=== PATIENT | male | born 1935 | race African-American/Black ===

== ENCOUNTER 2016-07-04 16:27 | Emergency (ER) | payer MEDICARE ==
[~2016-07-04] VITALS: Ht 177.8 cm; Wt 79.8 kg
[~2016-07-04 16:27] MED LIST: AMLO5TAB2 PO; FLAX100031 PO; METO100T5 PO; MULT-460 PO; TRAM50TA PO; VITAMIN B 12
--- NOTE | 2016-07-04 16:54 | PHYS DOC ---
Past Medical History Past Medical History: Hypertension, Other Additional Past Medical Histor: BPH Past Surgical History: Other Additional Past Surgical Histo: hernia , carpal tunnel release Alcohol Use: None Drug Use: None Adult General Chief Complaint Chief Complaint: ABDOMINAL PAIN HPI HPI Patient is a 80 year old male who presents with for evaluation of months of right-sided and epigastric abdominal pain that is constant. He also notes in the past 2 days having some belching and burning after eating associated with mild nausea. He states he has some nonbloody loose stools in the past 2 days also. He has seen his primary care doctor for his abdominal pain, and is taking dicyclomine. He denies fever or chills, emesis, bloody or dark stools, chest pain, dyspnea, pain after eating, dysuria, hematuria, back pain, rash, testicular pain, constipation. Review of Systems Review of Systems Constitutional: Denies fever or chills [] Eyes: Denies change in visual acuity, redness, or eye pain [] HENT: Denies nasal congestion or sore throat [] Respiratory: Denies cough or shortness of breath [] Cardiovascular: No additional information not addressed in HPI [] GI: Denies vomiting, bloody stools or diarrhea [] : Denies dysuria or hematuria [] Musculoskeletal: Denies back pain or joint pain [] Integument: Denies rash or skin lesions [] Neurologic: Denies headache, focal weakness or sensory changes [] Endocrine: Denies polyuria or polydipsia [] Current Medications Current Medications Current Medications Medications (Trade) Dose Ordered Sig/[place] Start Time Stop Time Status Last Admin Dose Admin Famotidine (Pepcid) 20 mg 1X ONCE 07/04/16 17:00 07/04/16 17:01 DC 07/04/16 17:06 20 MG Multi-Ingredient Mouthwash/Gargle (Gi Cocktail Single Dose) 15 ml 1X ONCE 07/04/16 17:00 07/04/16 17:01 DC 07/04/16 17:06 15 ML Allergies Allergies Allergies Coded Allergies Type Severity Reaction Last Updated Verified Fish Containing Products Allergy Intermediate Rash 03/07/13 Yes [place]-3 acid Ethyl Esters Allergy Intermediate Rash 03/07/13 Yes Physical Exam Physical Exam Constitutional: Well developed, well nourished, no acute distress, non-toxic appearance. [] HENT: Normocephalic, atraumatic, bilateral external ears normal, oropharynx moist, nose normal. [] Eyes: PERRLA, EOMI. [] Neck: Normal range of motion, supple. [] Cardiovascular:Heart rate regular rhythm [] Lungs & Thorax: Bilateral breath sounds clear to auscultation [] Abdomen: Bowel sounds normal, soft, no tenderness, no pulsatile mass. [] Skin: Warm, dry, no erythema, no rash. [] Back: No tenderness, no CVA tenderness. [] Extremities: No tenderness, ROM intact, no edema. [] Neurologic: Alert and oriented X 3, normal motor function, normal sensory function, no focal deficits noted. [] Psychologic: Affect normal, judgement normal, mood normal. [] Current Patient Data Vital Signs Vital Signs Date Time Temp Pulse Resp B/P (MAP) Pulse Ox O2 Delivery O2 Flow Rate FiO2 07/04/16 16:37 97.9 82 18 166/85 (112) 98 Room Air 97.9 Lab Values Laboratory Tests Test 07/04/16 16:57 White Blood Count 6.1 x10^3/uL (4.0-11.0) Red Blood Count 3.74 x10^6/uL (4.30-5.70) L Hemoglobin 11.4 g/dL (13.0-17.5) L Hematocrit 35.1 % (39.0-53.0) L Mean Corpuscular Volume 94 fL (79-100) Mean Corpuscular Hemoglobin 31 pg (25-35) Mean Corpuscular Hemoglobin Concent 32 g/dL (31-37) Red Cell Distribution Width 14.5 % (11.5-14.5) Platelet Count 203 x10^3/uL (140-400) Neutrophils (%) (Auto) 80 % (31-73) H Lymphocytes (%) (Auto) 9 % (24-48) L Monocytes (%) (Auto) 8 % (0-9) Eosinophils (%) (Auto) 2 % (0-3) Basophils (%) (Auto) 1 % (0-3) Neutrophils # (Auto) 4.9 x10^3uL (1.8-7.7) Lymphocytes # (Auto) 0.6 x10^3/uL (1.0-4.8) L Monocytes # (Auto) 0.5 x10^3/uL (0.0-1.1) Eosinophils # (Auto) 0.1 x10^3/uL (0.0-0.7) Basophils # (Auto) 0.0 x10^3/uL (0.0-0.2) Sodium Level 137 mmol/L (136-145) Potassium Level 4.3 mmol/L (3.5-5.1) Chloride Level 103 mmol/L (98-107) Carbon Dioxide Level 24 mmol/L (21-32) Anion Gap 10 (6-14) Blood Urea Nitrogen 21 mg/dL (8-26) Creatinine 2.0 mg/dL (0.7-1.3) H Estimated GFR (Cockcroft-Gault) 38.9 BUN/Creatinine Ratio 11 (6-20) Glucose Level 99 mg/dL (70-99) Calcium Level 9.1 mg/dL (8.5-10.1) Total Bilirubin 0.3 mg/dL (0.2-1.0) Aspartate Amino Transferase (AST) 27 U/L (15-37) Alanine Aminotransferase (ALT) 35 U/L (16-63) Alkaline Phosphatase 85 U/L (46-116) Total Protein 7.9 g/dL (6.4-8.2) Albumin 3.4 g/dL (3.4-5.0) Albumin/Globulin Ratio 0.8 (1.0-1.7) L Lipase 106 U/L (73-393) Laboratory Tests 07/04/16 16:57 Laboratory Tests 07/04/16 16:57 Course & Med Decision Making Course & Med Decision Making Pertinent Labs and Imaging studies reviewed. (See chart for details) Workup is unremarkable. His symptoms are improving with medications. Suspect gastritis versus ulcerative disease. Will treat with antacid medication. Return precautions given. He understands plan. Dragon Disclaimer Dragon Disclaimer This electronic medical record was generated, in whole or in part, using a voice recognition dictation system. Departure Departure Impression: Primary Impression: Abdominal pain Disposition: HOME, SELF-CARE Condition: STABLE Patient Instructions: Gastroesophageal Reflux Disease, Adult, [id number] Additional Instructions: Take famotidine for possible acid reflux. Follow-up with your primary care doctor within one week. Return for any concerns. Scripts Famotidine (FAMOTIDINE) 20 Mg Tablet 20 MG PO BID, #30 TAB Prov: Hugh VALLADARES MD 07/04/16 Problem Qualifiers Primary Impression: Abdominal pain Abdominal location: unspecified location Qualified Codes: R10.9 - Unspecified abdominal pain Hugh VALLADARES MD July 04, 2016 16:54
[2016-07-04] MEDS ORDERED: FAMOTIDINE 20 MG TABLET. PO ONE (17:00)
[2016-07-04] MEDS ORDERED: LIDO:MAALOX:DONNATAL 1:1:1 15 ML SINGLE DOSE SWSW ONE (17:00)
[2016-07-04 17:05] LABS: BASO % 1 % (0-3); EOS % 2 % (0-3); HEMATOCRIT 35.1 % (39.0-53.0); HEMOGLOBIN 11.4 g/dL (13.0-17.5); LYMPH # 0.6 x10^3/uL (1.0-4.8); LYMPH % 9 % (24-48); MEAN CORPUSCULAR HEMOGLOBIN 31 pg (25-35); MEAN CORPUSCULAR HGB CONC 32 g/dL (31-37); MEAN CORPUSCULAR VOLUME 94 fL (79-100); MONO % 8 % (0-9); NEUT % 80 % (31-73); PLATELET COUNT 203 x10^3/uL (140-400); RED BLOOD COUNT 3.74 x10^6/uL (4.30-5.70); RED CELL DISTRIBUTION WIDTH 14.5 % (11.5-14.5); WHITE BLOOD COUNT 6.1 x10^3/uL (4.0-11.0)
[2016-07-04 17:28] LABS: CALCIUM 9.1 mg/dL (8.5-10.1); GFR 38.9; POTASSIUM 4.3 mmol/L (3.5-5.1)
[2016-07-04 17:34] LABS: ALBUMIN 3.4 g/dL (3.4-5.0); ALBUMIN/GLOBULIN RATIO 0.8 (1.0-1.7); TOTAL BILIRUBIN 0.3 mg/dL (0.2-1.0); TOTAL PROTEIN 7.9 g/dL (6.4-8.2)
[2016-07-04] MEDS ORDERED: FAMO20TA5 PO (17:57)
[2016-07-04 18:04] VITALS: BP 141/72
== END 2016-07-04 18:23 | disposition home or self-care (01) ==
LOC: ER 17:40
DX: R10.9 Unspecified abdominal pain (principal); I10 Essential (primary) hypertension; Z91.013 Allergy to seafood
CPT/HCPCS: 36415; 80053; 83690; 85027; 99284

== ENCOUNTER 2016-07-23 16:40 | Inpatient (IN) | payer MEDICARE ==
[~2016-07-23] VITALS: Ht 177.8 cm; Wt 81.6 kg
[~2016-07-23 16:40] MED LIST changes: +FAMO20TA5 PO
--- NOTE | 2016-07-23 16:46 | PHYS DOC ---
Past Medical History Past Medical History: Hypertension, Other Additional Past Medical Histor: BPH Past Surgical History: Other Additional Past Surgical Histo: hernia , carpal tunnel release Alcohol Use: None Drug Use: None Adult General Chief Complaint Chief Complaint: ABDOMINAL PAIN HPI HPI Patient is a 80 year old [place] male who presents with pain and nausea for 2 weeks. He states he's lost weight over the last several weeks. He states his pain is constant, he states he's having small bowel movements. He does have a history of a right inguinal hernia that was repaired many years ago. He denies any fevers or chills. Review of Systems Review of Systems Constitutional: Denies fever or chills [] Eyes: Denies change in visual acuity, redness, or eye pain [] HENT: Denies nasal congestion or sore throat [] Respiratory: Denies cough or shortness of breath [] Cardiovascular: No additional information not addressed in HPI [] GI: Nausea for abdominal pain, nausea, denies any vomiting, bloody stools or diarrhea [] : Denies dysuria or hematuria [] Musculoskeletal: Denies back pain or joint pain [] Integument: Denies rash or skin lesions [] Neurologic: Denies headache, focal weakness or sensory changes [] Endocrine: Denies polyuria or polydipsia [] Current Medications Current Medications Current Medications Medications (Trade) Dose Ordered Sig/[place] Start Time Stop Time Status Last Admin Dose Admin Fentanyl Citrate (Fentanyl 2ml Vial) 25 mcg PRN Q15MIN PRN 07/23/16 16:45 07/24/16 16:44 07/23/16 17:33 25 MCG Allergies Allergies Allergies Coded Allergies Type Severity Reaction Last Updated Verified Fish Containing Products Allergy Intermediate Rash 03/07/13 Yes [place]-3 acid Ethyl Esters Allergy Intermediate Rash 03/07/13 Yes Physical Exam Physical Exam Constitutional: Well developed, well nourished, no acute distress, non-toxic appearance. [] HENT: Normocephalic, atraumatic, bilateral external ears normal, oropharynx moist, no oral exudates, nose normal. [] Eyes: PERRLA, EOMI, conjunctiva normal, no discharge. [] Neck: Normal range of motion, no tenderness, supple, no stridor. [] Cardiovascular:Heart rate regular rhythm, no murmur [] Lungs & Thorax: Bilateral breath sounds clear to auscultation [] Abdomen: Bowel sounds normal, soft, palpation in the right upper quadrant and mild tenderness diffusely, no rebound, no masses, no pulsatile masses. [] Skin: Warm, dry, no erythema, no rash. [] Back: No tenderness, no CVA tenderness. [] Extremities: No tenderness, no cyanosis, no clubbing, ROM intact, no edema. [] Neurologic: Alert and oriented X 3, normal motor function, normal sensory function, no focal deficits noted. [] Psychologic: Affect normal, judgement normal, mood normal. [] Current Patient Data Vital Signs Vital Signs Date Time Temp Pulse Resp B/P (MAP) Pulse Ox O2 Delivery O2 Flow Rate FiO2 07/23/16 17:33 16 Lab Values Laboratory Tests Test 07/23/16 16:55 07/23/16 17:30 Urine Color Yellow Urine Clarity Clear Urine pH 5.5 Urine Specific [place] 1.015 Urine Protein Negative mg/dL (NEG-TRACE) Urine Glucose (UA) Negative mg/dL (NEG) Urine Ketones (Stick) Trace mg/dL (NEG) Urine Blood Negative (NEG) Urine Nitrite Negative (NEG) Urine Bilirubin Small (NEG) Urine Urobilinogen Dipstick 0.2 mg/dL (0.2 mg/dL) Urine Leukocyte Esterase Large (NEG) Urine RBC 0 /HPF (0-2) Urine WBC 5-10 /HPF (0-4) Urine Squamous Epithelial Cells Occ /LPF Urine Bacteria Few /HPF (0-FEW) Urine Mucus Mod /LPF White Blood Count 6.0 x10^3/uL (4.0-11.0) Red Blood Count 3.75 x10^6/uL (4.30-5.70) L Hemoglobin 11.1 g/dL (13.0-17.5) L Hematocrit 34.9 % (39.0-53.0) L Mean Corpuscular Volume 93 fL (79-100) Mean Corpuscular Hemoglobin 30 pg (25-35) Mean Corpuscular Hemoglobin Concent 32 g/dL (31-37) Red Cell Distribution Width 14.0 % (11.5-14.5) Platelet Count 193 x10^3/uL (140-400) Neutrophils (%) (Auto) 80 % (31-73) H Lymphocytes (%) (Auto) 9 % (24-48) L Monocytes (%) (Auto) 8 % (0-9) Eosinophils (%) (Auto) 1 % (0-3) Basophils (%) (Auto) 1 % (0-3) Neutrophils # (Auto) 4.8 x10^3uL (1.8-7.7) Lymphocytes # (Auto) 0.6 x10^3/uL (1.0-4.8) L Monocytes # (Auto) 0.5 x10^3/uL (0.0-1.1) Eosinophils # (Auto) 0.1 x10^3/uL (0.0-0.7) Basophils # (Auto) 0.1 x10^3/uL (0.0-0.2) Prothrombin Time 14.4 SEC (11.7-14.0) H Prothrombin Time INR 1.2 (0.8-1.1) H PTT 31 SEC (24-38) Sodium Level 136 mmol/L (136-145) Potassium Level 4.8 mmol/L (3.5-5.1) Chloride Level 103 mmol/L (98-107) Carbon Dioxide Level 25 mmol/L (21-32) Anion Gap 8 (6-14) Blood Urea Nitrogen 21 mg/dL (8-26) Creatinine 2.3 mg/dL (0.7-1.3) H Estimated GFR (Cockcroft-Gault) 33.1 Glucose Level 90 mg/dL (70-99) Calcium Level 9.4 mg/dL (8.5-10.1) Total Bilirubin 0.6 mg/dL (0.2-1.0) Direct Bilirubin 0.1 mg/dL (0.0-0.2) Aspartate Amino Transferase (AST) 23 U/L (15-37) Alanine Aminotransferase (ALT) 19 U/L (16-63) Alkaline Phosphatase 69 U/L (46-116) Creatine Kinase 130 U/L (39-308) Creatine Kinase MB (Mass) 2.4 ng/mL (0.0-3.6) Creatine Kinase MB Relative Index 1.8 % (0-4) Total Protein 7.6 g/dL (6.4-8.2) Albumin 3.3 g/dL (3.4-5.0) L Lipase 72 U/L (73-393) L Laboratory Tests 07/23/16 17:30 Laboratory Tests 07/23/16 17:30 EKG EKG [] Radiology/Procedures Radiology/Procedures [facility] [address] [place] [address] IMAGING REPORT Signed PATIENT: VICKIE BLEDSOE ACCOUNT: [id number] : 1935 LOCATION: ER AGE: 80 SEX: M EXAM STATUS: REG ER ORD. PHYSICIAN: HILLARY AGUILA MD REASON: RUQ PAIN PROCEDURE: ABDOMEN LTD Right upper quadrant abdomen ultrasound study HISTORY: Right upper quadrant pain FINDINGS: There is gallbladder wall thickening measuring up to 5 mm. The gallbladder is diffusely filled with sludge. A positive Rosado's sign was elicited during transducer examination of the gallbladder. The pancreas is poorly visualized due to overlying bowel gas. No focal hepatic mass is seen. The liver measures 12.3 cm in length. Hepatopedal flow is seen within the main portal vein. The extrahepatic bile that measures 3.6 mm in caliber which is normal. The length of the right kidney is 9.8 cm. No hydronephrosis is seen on this side. An upper pole right renal cyst is seen measuring 3.8 cm. There is a moderate amount of ascites present within the right upper quadrant. IMPRESSION: Diffuse biliary sludge within the gallbladder. Gallbladder wall thickening. Positive Rosado's sign. Therefore this may be seen with cholecystitis. Small liver with moderate ascites. Cirrhosis is a possibility. Electronically signed by: Sharad Fletcher MD (07/23/2016 5:53 PM) DICTATED and SIGNED BY: SHARAD FLETCHER MD DATE: 07/23/16 1749 CC: HILLARY AGUILA MD; HEATHER MEDELLIN MD ~ Course & Med Decision Making Course & Med Decision Making Pertinent Labs and Imaging studies reviewed. (See chart for details) She has diffuse abdominal pain. Right upper quadrant shows gallbladder wall thickening and sludge consistent with cholecystitis. Spoke with Dr. Cotter who once a by mouth contrast only CT scan of abdomen and pelvis to look for any other abnormalities. Patient is being admitted to Dr. Tompkins, with consultation going to . She is in stable condition this time being admitted to the hospital with interim orders written. Dragon Disclaimer Dragon Disclaimer This electronic medical record was generated, in whole or in part, using a voice recognition dictation system. Departure Departure Impression: Primary Impression: Abdominal pain Admitting Physician: Alexis Fisher Condition: STABLE Referrals: UNKNOWN PCP NAME (PCP) Problem Qualifiers Primary Impression: Abdominal pain Abdominal location: generalized Qualified Codes: R10.84 - Generalized abdominal pain HILLARY AGUILA MD Jul 23, 2016 16:46
[2016-07-23 17:12] LABS: BILIRUBIN,URINE SMALL (NEG); GLUCOSE,URINE NEGATIVE (NEG); NITRITE,URINE NEGATIVE (NEG); PH,URINE 5.5; PROTEIN,URINE NEGATIVE (NEG-TRACE); UROBILINOGEN,URINE 0.2 mg/dL (0.2 mg/dL)
[2016-07-23 17:26] LABS: BACTERIA,URINE FEW /HPF (0-FEW); RBC,URINE 0 /HPF (0-2); SQUAMOUS EPITHELIAL CELL,UR OCC /LPF
[2016-07-23] MEDS: fentaNYL PF VIAL 100 MCG/2 ML VIAL IV PRN ×2 (17:33→19:35)
[2016-07-23 17:35] LABS: BASO # 0.1 x10^3/uL (0.0-0.2); BASO % 1 % (0-3); EOS % 1 % (0-3); HEMATOCRIT 34.9 % (39.0-53.0); HEMOGLOBIN 11.1 g/dL (13.0-17.5); LYMPH # 0.6 x10^3/uL (1.0-4.8); LYMPH % 9 % (24-48); MEAN CORPUSCULAR HEMOGLOBIN 30 pg (25-35); MEAN CORPUSCULAR HGB CONC 32 g/dL (31-37); MEAN CORPUSCULAR VOLUME 93 fL (79-100); MONO % 8 % (0-9); NEUT % 80 % (31-73); PLATELET COUNT 193 x10^3/uL (140-400); RED BLOOD COUNT 3.75 x10^6/uL (4.30-5.70)
[2016-07-23 17:45] LABS: INR 1.2 (0.8-1.1); PROTHROMBIN TIME PATIENT 14.4 SEC (11.7-14.0)
--- NOTE | 2016-07-23 17:56 | RAD ---
Right upper quadrant abdomen ultrasound study HISTORY: Right upper quadrant pain FINDINGS: There is gallbladder wall thickening measuring up to 5 mm. The gallbladder is diffusely filled with sludge. A positive Rosado's sign was elicited during transducer examination of the gallbladder. The pancreas is poorly visualized due to overlying bowel gas. No focal hepatic mass is seen. The liver measures 12.3 cm in length. Hepatopedal flow is seen within the main portal vein. The extrahepatic bile that measures 3.6 mm in caliber which is normal. The length of the right kidney is 9.8 cm. No hydronephrosis is seen on this side. An upper pole right renal cyst is seen measuring 3.8 cm. There is a moderate amount of ascites present within the right upper quadrant. IMPRESSION: Diffuse biliary sludge within the gallbladder. Gallbladder wall thickening. Positive Rosado's sign. Therefore this may be seen with cholecystitis. Small liver with moderate ascites. Cirrhosis is a possibility. Electronically signed by: Phillip Fletcher MD (07/23/2016 5:53 PM)
[2016-07-23 17:57] LABS: CALCIUM 9.4 mg/dL (8.5-10.1); CREATININE 2.3 mg/dL (0.7-1.3); GFR 33.1; POTASSIUM 4.8 mmol/L (3.5-5.1)
[2016-07-23 18:02] LABS: ALBUMIN 3.3 g/dL (3.4-5.0); DIRECT BILIRUBIN 0.1 mg/dL (0.0-0.2); TOTAL BILIRUBIN 0.6 mg/dL (0.2-1.0); TOTAL PROTEIN 7.6 g/dL (6.4-8.2)
[2016-07-23 18:11] LABS: CKMB MASS 2.4 ng/mL (0.0-3.6)
[2016-07-23] MEDS ORDERED: fentaNYL PF VIAL 100 MCG/2 ML VIAL IV PRN (18:30)
[2016-07-23] MEDS ORDERED: ONDANSETRON PF 4 MG/2 ML VIAL. IV PRN (18:30)
--- NOTE | 2016-07-23 19:11 | PDOC1 ---
History and Physical Family History Family History: Hypertension Social History Smoke: No ALCOHOL: rare Current Problem List Problem List Problems Medical Problems: (1) Abdominal pain Status: Acute Current Medications Current Medications Current Medications Medications (Trade) Dose Ordered Sig/[place] Start Time Stop Time Status Last Admin Dose Admin Fentanyl Citrate (Fentanyl 2ml Vial) 25 mcg PRN Q2HR PRN 07/23/16 18:30 07/24/16 18:29 Ondansetron HCl (Zofran) 4 mg PRN Q8HRS PRN 07/23/16 18:30 07/24/16 18:29 Allergies Allergies Allergies Coded Allergies Type Severity Reaction Last Updated Verified Fish Containing Products Allergy Intermediate Rash 03/07/13 Yes [place]-3 acid Ethyl Esters Allergy Intermediate Rash 03/07/13 Yes ROS Review of System CONSTITUTIONAL: No fever or chills EYES: No recent changes SKIN: No rash or itching CARDIOVASCULAR: No chest pain, syncope, palpitations, or edema RESPIRATORY: No SOB or cough GASTROINTESTINAL: RUQ, abdominal pain distention and dyspepsia NEUROLOGICAL: No headaches or weakness ENDOCRINE: No cold or heat intolerance GENITOURINARY: No urgency or frequency of urination MUSCULOSKELETAL: No back pain or joint pain LYMPHATICS: No enlarged lymph nodes PSYCHIATRIC: No anxiety or depression Physical Exam Physical Exam GEN.: No apparent distress. Alert and oriented. HEENT: Head is normocephalic, atraumatic NECK: Supple. no JVD LUNGS: Clear to auscultation. HEART: RRR, S1, S2 present. Peripheral pulses intact ABDOMEN: Soft, ruq tender. Positive bowel sounds. distended. EXTREMITIES: Without any cyanosis. NEUROLOGIC: Normal speech, normal tone PSYCHIATRIC: Normal affect, normal mood. SKIN: No ulcerations Vitals Vitals Vital Signs Date Time Temp Pulse Resp B/P (MAP) Pulse Ox O2 Delivery O2 Flow Rate FiO2 07/23/16 18:33 70 18 141/86 (104) 96 Room Air 07/23/16 17:30 98.0 98.0 Labs Labs Laboratory Tests Test 07/23/16 16:55 07/23/16 17:30 Urine Color Yellow Urine Clarity Clear Urine pH 5.5 Urine Specific [place] 1.015 Urine Protein Negative mg/dL (NEG-TRACE) Urine Glucose (UA) Negative mg/dL (NEG) Urine Ketones (Stick) Trace mg/dL (NEG) Urine Blood Negative (NEG) Urine Nitrite Negative (NEG) Urine Bilirubin Small (NEG) Urine Urobilinogen Dipstick 0.2 mg/dL (0.2 mg/dL) Urine Leukocyte Esterase Large (NEG) Urine RBC 0 /HPF (0-2) Urine WBC 5-10 /HPF (0-4) Urine Squamous Epithelial Cells Occ /LPF Urine Bacteria Few /HPF (0-FEW) Urine Mucus Mod /LPF White Blood Count 6.0 x10^3/uL (4.0-11.0) Red Blood Count 3.75 x10^6/uL (4.30-5.70) Hemoglobin 11.1 g/dL (13.0-17.5) Hematocrit 34.9 % (39.0-53.0) Mean Corpuscular Volume 93 fL (79-100) Mean Corpuscular Hemoglobin 30 pg (25-35) Mean Corpuscular Hemoglobin Concent 32 g/dL (31-37) Red Cell Distribution Width 14.0 % (11.5-14.5) Platelet Count 193 x10^3/uL (140-400) Neutrophils (%) (Auto) 80 % (31-73) Lymphocytes (%) (Auto) 9 % (24-48) Monocytes (%) (Auto) 8 % (0-9) Eosinophils (%) (Auto) 1 % (0-3) Basophils (%) (Auto) 1 % (0-3) Neutrophils # (Auto) 4.8 x10^3uL (1.8-7.7) Lymphocytes # (Auto) 0.6 x10^3/uL (1.0-4.8) Monocytes # (Auto) 0.5 x10^3/uL (0.0-1.1) Eosinophils # (Auto) 0.1 x10^3/uL (0.0-0.7) Basophils # (Auto) 0.1 x10^3/uL (0.0-0.2) Prothrombin Time 14.4 SEC (11.7-14.0) Prothromb Time International Ratio 1.2 (0.8-1.1) Activated Partial Thromboplast Time 31 SEC (24-38) Sodium Level 136 mmol/L (136-145) Potassium Level 4.8 mmol/L (3.5-5.1) Chloride Level 103 mmol/L (98-107) Carbon Dioxide Level 25 mmol/L (21-32) Anion Gap 8 (6-14) Blood Urea Nitrogen 21 mg/dL (8-26) Creatinine 2.3 mg/dL (0.7-1.3) Estimated GFR (Cockcroft-Gault) 33.1 Glucose Level 90 mg/dL (70-99) Calcium Level 9.4 mg/dL (8.5-10.1) Total Bilirubin 0.6 mg/dL (0.2-1.0) Direct Bilirubin 0.1 mg/dL (0.0-0.2) Aspartate Amino Transf (AST/SGOT) 23 U/L (15-37) Alanine Aminotransferase (ALT/SGPT) 19 U/L (16-63) Alkaline Phosphatase 69 U/L (46-116) Creatine Kinase 130 U/L (39-308) Creatine Kinase MB (Mass) 2.4 ng/mL (0.0-3.6) Creatine Kinase MB Relative Index 1.8 % (0-4) Total Protein 7.6 g/dL (6.4-8.2) Albumin 3.3 g/dL (3.4-5.0) Lipase 72 U/L (73-393) Laboratory Tests Test 07/23/16 16:55 07/23/16 17:30 Urine Color Yellow Urine Clarity Clear Urine pH 5.5 Urine Specific [place] 1.015 Urine Protein Negative mg/dL (NEG-TRACE) Urine Glucose (UA) Negative mg/dL (NEG) Urine Ketones (Stick) Trace mg/dL (NEG) Urine Blood Negative (NEG) Urine Nitrite Negative (NEG) Urine Bilirubin Small (NEG) Urine Urobilinogen Dipstick 0.2 mg/dL (0.2 mg/dL) Urine Leukocyte Esterase Large (NEG) Urine RBC 0 /HPF (0-2) Urine WBC 5-10 /HPF (0-4) Urine Squamous Epithelial Cells Occ /LPF Urine Bacteria Few /HPF (0-FEW) Urine Mucus Mod /LPF White Blood Count 6.0 x10^3/uL (4.0-11.0) Red Blood Count 3.75 x10^6/uL (4.30-5.70) Hemoglobin 11.1 g/dL (13.0-17.5) Hematocrit 34.9 % (39.0-53.0) Mean Corpuscular Volume 93 fL (79-100) Mean Corpuscular Hemoglobin 30 pg (25-35) Mean Corpuscular Hemoglobin Concent 32 g/dL (31-37) Red Cell Distribution Width 14.0 % (11.5-14.5) Platelet Count 193 x10^3/uL (140-400) Neutrophils (%) (Auto) 80 % (31-73) Lymphocytes (%) (Auto) 9 % (24-48) Monocytes (%) (Auto) 8 % (0-9) Eosinophils (%) (Auto) 1 % (0-3) Basophils (%) (Auto) 1 % (0-3) Neutrophils # (Auto) 4.8 x10^3uL (1.8-7.7) Lymphocytes # (Auto) 0.6 x10^3/uL (1.0-4.8) Monocytes # (Auto) 0.5 x10^3/uL (0.0-1.1) Eosinophils # (Auto) 0.1 x10^3/uL (0.0-0.7) Basophils # (Auto) 0.1 x10^3/uL (0.0-0.2) Prothrombin Time 14.4 SEC (11.7-14.0) Prothromb Time International Ratio 1.2 (0.8-1.1) Activated Partial Thromboplast Time 31 SEC (24-38) Sodium Level 136 mmol/L (136-145) Potassium Level 4.8 mmol/L (3.5-5.1) Chloride Level 103 mmol/L (98-107) Carbon Dioxide Level 25 mmol/L (21-32) Anion Gap 8 (6-14) Blood Urea Nitrogen 21 mg/dL (8-26) Creatinine 2.3 mg/dL (0.7-1.3) Estimated GFR (Cockcroft-Gault) 33.1 Glucose Level 90 mg/dL (70-99) Calcium Level 9.4 mg/dL (8.5-10.1) Total Bilirubin 0.6 mg/dL (0.2-1.0) Direct Bilirubin 0.1 mg/dL (0.0-0.2) Aspartate Amino Transf (AST/SGOT) 23 U/L (15-37) Alanine Aminotransferase (ALT/SGPT) 19 U/L (16-63) Alkaline Phosphatase 69 U/L (46-116) Creatine Kinase 130 U/L (39-308) Creatine Kinase MB (Mass) 2.4 ng/mL (0.0-3.6) Creatine Kinase MB Relative Index 1.8 % (0-4) Total Protein 7.6 g/dL (6.4-8.2) Albumin 3.3 g/dL (3.4-5.0) Lipase 72 U/L (73-393) VTE Prophylaxis Ordered VTE Prophylaxis Devices: Yes VTE Pharmacological Prophylaxi: Yes ANH SHIRLEY MD Jul 23, 2016 19:11
[2016-07-23] MEDS ORDERED: ALBUTEROL SULFATE 2.5 MG/3 ML NEBU. NEB PRN (19:15)
[2016-07-23] MEDS ORDERED: ACETAMINOPHEN 325 MG TABLET. PO PRN (19:15)
--- NOTE | 2016-07-23 19:20 | ACF ---
Admission Forms Criteria ABDOMINAL PAIN Clinical Indications for Admission to Inpatient Care (Place 'X' for any and all applicable criteria): Admission is indicated for ANY ONE of the following(1)(2)(3)(4)(5): [X]I. Inpatient admission required rather than observation care (Also use Abdominal Pain: Observation Care, as appropriate) because of ANY ONE of the following: [ ]a) Severe pain requiring acute inpatient management [X]b) Identification of etiology/finding that requires inpatient care (eg, aortic dissection, free air) [ ]c) Absent bowel sounds with complete ileus(6) [ ]d) Suspected toxic megacolon [ ]e) Severe electrolyte abnormalities requiring inpatient care [ ]f) High fever or infection requiring inpatient admission as indicated by ANY ONE of following(7)(8): [ ] i) Appropriate outpatient or observational care antimicrobial treatment unavailable, not effective, or not feasible [ ] ii) Documented bacteremia [ ] iii) Temperature > 104.9 degrees F (oral) [ ] iv) T >103.1 F (oral) or < 96.8 F(rectal) that does not respond to all emergency treatment measures [ ]g) Signs of intestinal obstruction [B] [ ]h) Hemodynamic instability [ ]i) IV fluid to replace significant ongoing losses (greater than 3 L/m2 per day) (12)(13) [ ]j) Percutaneous or open drainage (eg, abscess, biliary tract ) procedures [ ]k) Parenteral nutrition regimen that must be implemented on inpatient basis [ ]l) Other condition,treatment or monitoring requiring inpatient admission. [ ]II. Peritoneal signs present [ ]III. Surgery needed that cannot be performed on an ambulatory basis. [ ]IV. Evaluation requires patient to not eat or drink for extended period ( eg, more than 24 hours). [ ]V. Contraindications and/or Inappropriate clinical situations for Observational Care in patients with abdominal pain, when ANY ONE of the following is required: [ ]a) Thorough evaluation is required to prevent catastrophic events due to delays in diagnosing (e.g.Mesenteric ischemia) 1,3 [ ]b) Patient with severe pathology or with chronic symptoms unlikely to improve in the ED stay (3) [ ]. General contraindications and/or Inappropriate clinical situations for Observational Care in patients with abdominal pain, when ANY ONE of the following is required: [ ]a) Prediction of prolongation of LOS based on ANY ONE of the following may be considered as a contraindication for observational care 2, 3, 4, 5, 6, 7, 8, 9, 10, 11 [ ]i) Age > 65 yrs. [ ]ii) Patient arriving by ambulance [ ]iii) Patient with high acuity [ ]iv) Patient requiring vital sign monitoring [ ]v) Patient on IV medication [ ]b) Systolic blood pressures 180mmHg 3,12 [ ]c) Patient with altered mental status including delirium and other alteration of consciousness, (3) [ ]d) Patient whose discharge disposition will be to a alf home or rehabilitation home should not be managed in Emergency Department Observation Unit. CMS rule requires 3 days hospital stay before such placement.3,13 [ ]e) Patient with failure to thrive due to broad array of etiologies 3,16,17 [ ]f) Inability to ambulate 3,14 Extended stay beyond goal length of stay may be needed for(2)(3): [ ]a) Persistent abdominal pain with suspected intra-abdominal process [ ]b) Diagnosed condition requiring continued stay (e.g., pancreatitis, complicated diverticulitis) [ ]c) Surgery (e.g., colectomy) The original [facility] content created by [employer] has been revised. The portions of the content which have been revised are identified through the use of italic text or in bold, and [facility] has neither reviewed nor approved the modified material.All other unmodified content is copyright [employer]. Please see references footnoted in the original [employer] edition 2016 Admission Criteria Met?: Yes CONSTANCE MALAVE Jul 23, 2016 19:20
[2016-07-23] MEDS ORDERED: IOHEXOL 240 MG/ML 50ML VIAL. PO ONE (19:45)
[2016-07-23] MEDS ORDERED: CONTRAST GIVEN MC PRN (19:45)
--- NOTE | 2016-07-23 21:00 | RAD ---
CT study of the abdomen and pelvis without contrast Clinical indications: Right-sided abdominal pain. Ascites. Cholecystitis seen on sonogram performed today. TECHNIQUE: Non-IV contrast helical CT scanning of the abdomen and pelvis was performed. Without IV contrast, the sensitivity to detect organ pathology is decreased. GI contrast was administered per mouth. PQRS compliance Statement One or more of the following individualized dose reduction techniques were utilized for this study: 1. Automated exposure control 2. Adjustment of the mA and/or kV according to patient size 3. Use of iterative reconstruction technique COMPARISON: No previous CT available. FINDINGS: The liver is small in size. No focal hepatic mass is seen. The spleen is not enlarged. Diffuse atrophy of the pancreas is seen. Gallbladder is distended. No extrahepatic biliary ductal dilatation is seen. No adrenal mass is seen. No hydronephrosis or hydroureter is seen on either side. There is a cyst of the upper pole of the right kidney. There is a complex cyst of the lower pole of the right kidney with calcification. This measures 5.1 cm. This was not seen on the ultrasound study due to bowel gas Urinary bladder wall is smooth. Prostate gland is significantly enlarged measuring 7.4 cm in transverse dimension and indents the floor of the urinary bladder. A moderate amount of ascites is seen throughout the abdomen and pelvis. No focal aneurysmal dilatation of the abdominal aorta is seen. Calcified atheromatous disease of the celiac artery and SMA and right main renal artery and left main renal artery is seen. No bulky abdominal or pelvic lymphadenopathy is seen. Contrast is seen within the distal esophagus which could be due to esophageal dysmotility or gastroesophageal reflux. There is wall thickening of the distal antrum of the stomach. No obstructive bowel pattern is seen. No free air is seen. Right lung base atelectasis is seen. There is rounded lucency of L4 vertebral body on the left side. There is small radiolucency of the posterior medial aspect of the right iliac bone. IMPRESSION: Moderate ascites. Small liver. The spleen is small in size as well. Gallbladder distention. See ultrasound report. Wall thickening of the distal antrum of the the stomach. Gastritis is possible. Enlarged prostate gland. Small radiolucent areas of the right iliac bone and L4. Osseous metastatic disease is in the differential diagnosis. Contrast is seen within the distal esophagus which may be due to esophageal dysmotility or gastroesophageal reflux. 5.1 cm complex cystic lesion lower pole of the right kidney. Calcification is evident. Cystic neoplasm is possible. Recommend OUTPATIENT CT study of the abdomen with contrast for further evaluation. Electronically signed by: Phillip Fletcher MD (07/23/2016 8:56 PM)
[2016-07-23 21:25] VITALS: BP 154/73
--- NOTE | 2016-07-23 22:14 | HP ---
ADMIT DATE: 07/23/2016 CHIEF COMPLAINT: Abdominal pain. HISTORY OF PRESENT ILLNESS: An 80-year-old -[place] male, who presented to the ER with complaints of abdominal pain. Symptoms were there for nearly 2-3 weeks, gradually getting worse. He presented to the ER in the past, and at that time, he was discharged after symptomatic treatment. The patient has been following with the primary care doctor and the primary care doctor set up an appointment with grinding machine operator, Dr. Alcala, who sent him here to the ER. The patient was seen in the ER. He says that this abdominal pain is terrible, he is not feeling well, and complains of dyspepsia and nausea. He denies any constipation. He is having frequent small bowel movements. He denies any prior surgeries on the abdomen. PAST MEDICAL HISTORY: Hypertension, BPH. PERSONAL HISTORY: No smoking, no alcohol, and no drug abuse. SURGICAL HISTORY: Hernia repair and carpal tunnel disease. FAMILY HISTORY: Hypertension. REVIEW OF SYSTEMS AND PHYSICAL EXAMINATION: Please see my electronic H and P. ALLERGIES: FISH-CONTAINING PRODUCT -OMEGA 3 LABORATORY FINDINGS: CBC: WBC 6000, hemoglobin 11.1, MCV is 93, and platelets 193. Chemistry: Sodium 136, potassium 4.8, chloride is 103, carbon dioxide 25, gap is 8, BUN is 21, creatinine 2.3, and glucose is 90. Total bilirubin 0.6. Lipase is 72. Coagulation panel: INR is 1.2. Urine: Nitrites negative, leukocyte esterase large, and bacteria few. IMAGING STUDIES: Ultrasound of the abdomen showed diffuse biliary sludge within the gallbladder, gallbladder wall thickening, and positive Rosado's sign consistent with cholecystitis. ASSESSMENT AND PLAN: 1. Right upper quadrant abdominal pain, intractable in nature due to cholecystitis. 2. Dyspepsia. 3. Hypertension. PLAN: 1. The patient has been admitted to the hospital for surgical evaluation and possible cholecystectomy in the a.m. 2. He does not appear to be septic at this time. We will keep him n.p.o. and continue IV hydration with normal saline. 3. Consult Dr. Alcala for further recommendations. 4. CBC, BMP in the a.m. 5. CT of the abdomen pending. 6. We will continue home medications and p.r.n. hydralazine for blood pressure. 7. Plan explained to the patient and at bedside, agree with current plan. Pain control with p.r.n. IV morphine. ANH SHIRLEY MD DR: HUANG/elizabeth JOB#: [id number] / [id number] BRAY[place]
[2016-07-23] MEDS: IV NORMAL SALINE 1000ML BAG 1,000 ML IV SCH (22:18)
[2016-07-23 23:18] VITALS: BP 144/74
[2016-07-24] VITALS (12 sets, daily range): BP systolic 90–153; BP diastolic 22–93
[2016-07-24] MEDS: MORPHINE SULFATE 2 MG/ML DISP.SYRIN. IV PRN ×4 (05:16→12:32)
[2016-07-24 05:40] LABS: BASO % 1 % (0-3); EOS % 3 % (0-3); HEMATOCRIT 32.4 % (39.0-53.0); HEMOGLOBIN 10.3 g/dL (13.0-17.5); LYMPH # 0.7 x10^3/uL (1.0-4.8); LYMPH % 13 % (24-48); MEAN CORPUSCULAR HEMOGLOBIN 30 pg (25-35); MEAN CORPUSCULAR HGB CONC 32 g/dL (31-37); MEAN CORPUSCULAR VOLUME 93 fL (79-100); MONO % 11 % (0-9); NEUT % 73 % (31-73); PLATELET COUNT 181 x10^3/uL (140-400); RED BLOOD COUNT 3.49 x10^6/uL (4.30-5.70); WHITE BLOOD COUNT 5.5 x10^3/uL (4.0-11.0)
[2016-07-24 06:03] LABS: ALBUMIN 2.8 g/dL (3.4-5.0); ALBUMIN/GLOBULIN RATIO 0.9 (1.0-1.7); CALCIUM 8.3 mg/dL (8.5-10.1); CREATININE 2.1 mg/dL (0.7-1.3); GFR 36.8; POTASSIUM 4.7 mmol/L (3.5-5.1); TOTAL BILIRUBIN 0.5 mg/dL (0.2-1.0)
[2016-07-24] MEDS ORDERED: BUPIVACAINE-EPI 0.25%-1:200000 MPF 30 ML VIAL. ONE (08:11)
[2016-07-24] MEDS ORDERED: SURGICEL HEMOSTAT 4X8 EACH. ONE (08:11)
[2016-07-24] MEDS ORDERED: IOHEXOL 300 MG/ML 50 ML VIAL. ONE (08:11)
--- NOTE | 2016-07-24 08:15 | PDOC2 ---
JOSE MCCOLLUM HYDROGENATION STILL OPERATOR 07/24/16 0815: CONSULT Date of Consult Date of Consult DATE: 07/24/16 TIME: 08:10 Reason for Consult Reason for Consult: cholecystitis Referring Physician Referring Physician: ER Identification/Chief Complaint Chief Complaint abdominal pain Source Source: Chart review, Patient History of Present Illness Reason for Visit: 3 week history of abdominal pain, upper abdomen, radiates to back. Aggravated by eating, has been eating less. Associated nausea, reflux symptoms. Worsening in last 3-4 days, bloating. Denies nausea or emesis. Does report diarrhea for last week, 3-4 times a day. Past Medical History Cardiovascular: HTN Renal/: Benign prostatic enlarg. Past Surgical History Past Surgical History: Other (RIH repair ) Family History Family History: Hypertension Social History No ALCOHOL: rare Drugs: None Lives: with Family Current Problem List Problem List Problems Medical Problems: (1) Abdominal pain Status: Acute Current Medications Current Medications Current Medications Fentanyl Citrate (Fentanyl 2ml Vial) 25 mcg PRN Q15MIN PRN IV PAIN GREATER THAN 3/10 Last administered on 07/23/16 19:35; Start 07/23/16 at 16:45; Stop 07/24 at 16:44 Ondansetron HCl (Zofran) 4 mg PRN Q8HRS PRN IV NAUSEA/VOMITING; Start 07/23/16 at 18:30; Stop 07/24/16 at 18:29 Fentanyl Citrate (Fentanyl 2ml Vial) 25 mcg PRN Q2HR PRN IV PAIN; Start at 18:30; Stop 07/23/16 at 19:32; Status DC Sodium Chloride 1,000 ml @ 75 mls/hr [id number] IV Last administered on 07/23/16 22:18; Start 07/23/16 at 19:15 Acetaminophen (Tylenol) 325 mg PRN Q6HRS PRN PO MILD PAIN / TEMP; Start at 19:15 Hydralazine HCl (Apresoline) 10 mg PRN Q4HRS PRN IVP ELEVATED BP, SEE COMMENTS ; Start 07/23/16 at 19:15 Ondansetron HCl (Zofran) 4 mg PRN Q8HRS PRN IV NAUSEA/VOMITING; Start 07/23/16 at 19:15 Albuterol Sulfate (Ventolin Neb Soln) 2.5 mg PRN Q4HRS PRN NEB SHORTNESS OF BREATH; Start 07/23/16 at 19:15 Morphine Sulfate 2 mg PRN Q2HR PRN IV PAIN Last administered on 07/24/16 05:16 ; Start 07/23/16 at 19:30 Iohexol (Omnipaque 240 Mg/ml) 50 ml 1X ONCE PO Last administered on 07/23/16 19:56; Start 07/23/16 at 19:45; Stop 07/23/16 at 19:46; Status DC Info (Do NOT chart on this entry -- for MONITORING) 1 each PRN DAILY PRN MC SEE COMMENTS; Start 07/23/16 at 19:45; Stop 07/25/16 at 19:44 Active Scripts Active Famotidine 20 Mg Tablet 20 Mg PO BID Reported Amlodipine Besylate 5 Mg Tablet 5 Mg PO DAILY Multiple Vitamin (Multivitamin With Minerals) 1 Each Tablet 1 Each PO DAILY [Vitamin B 12] DAILY Flaxseed (Flaxseed Oil) 1,000 Mg Capsule 1,000 Mg PO DAILY Toprol Xl (Metoprolol Succinate) 100 Mg Tab.er.24h 100 Mg PO BID Allergies Allergies: Coded Allergies: Fish Containing Products (Verified Allergy, Intermediate, Rash, 03/07/13) RASH ON LEGS Pella-3 acid Ethyl Esters (Verified Allergy, Intermediate, Rash, 03/07/13) RASH ON LEGS ROS General: No: Chills, Other (fevers) PSYCHOLOGICAL ROS: No: Anxiety, Depression Eyes: No Blurry vision, No Double vision HEENT: No: Heacaches, Sore Throat Hematological and Lymphatic: No: Bleeding Problems, Blood Clots Respiratory: YES: Shortness of breath (due to abdominal pain), No: Cough Cardiovascular: No Chest Pain, No Palpitations Gastrointestinal: Yes Other (see hpi) Genitourinary: No Dysuria, No Hematuria Musculoskeletal: No Joint Pain, No Muscle Pain Neurological: No Impaired Coord/balance, No Numbness/Tingling Skin: No Pruritus, No Rash Physical Exam General: Alert, Oriented X3, Cooperative, No acute distress HEENT: PERRLA, Mucous membr. moist/pink Lungs: Clear to auscultation, Normal air movement Heart: Regular rate, Normal S1, Normal S2, No murmurs Abdomen: Soft, Other (ND, tender across upper abdomen, RIH scar present ) Extremities: No clubbing, No cyanosis Skin: No breakdown, No significant lesion Neuro: Normal gait, Normal speech Psych/Mental Status: Mental status NL, Mood NL MUSCULOSKELETAL: No deformity, No swelling Vitals VITALS Vital Signs Date Time Temp Pulse Resp B/P (MAP) Pulse Ox O2 Delivery O2 Flow Rate FiO2 07/24/16 05:45 17 Room Air 07/24/16 03:45 98.3 77 137/93 (108) 97 98.3 Labs Labs Laboratory Tests Test 07/23/16 16:55 07/23/16 17:30 07/24/16 04:55 Urine Color Yellow Urine Clarity Clear Urine pH 5.5 Urine Specific Kendrick 1.015 Urine Protein Negative mg/dL (NEG-TRACE) Urine Glucose (UA) Negative mg/dL (NEG) Urine Ketones (Stick) Trace mg/dL (NEG) Urine Blood Negative (NEG) Urine Nitrite Negative (NEG) Urine Bilirubin Small (NEG) Urine Urobilinogen Dipstick 0.2 mg/dL (0.2 mg/dL) Urine Leukocyte Esterase Large (NEG) Urine RBC 0 /HPF (0-2) Urine WBC 5-10 /HPF (0-4) Urine Squamous Epithelial Cells Occ /LPF Urine Bacteria Few /HPF (0-FEW) Urine Mucus Mod /LPF White Blood Count 6.0 x10^3/uL (4.0-11.0) 5.5 x10^3/uL (4.0-11.0) Red Blood Count 3.75 x10^6/uL (4.30-5.70) 3.49 x10^6/uL (4.30-5.70) Hemoglobin 11.1 g/dL (13.0-17.5) 10.3 g/dL (13.0-17.5) Hematocrit 34.9 % (39.0-53.0) 32.4 % (39.0-53.0) Mean Corpuscular Volume 93 fL (79-100) 93 fL (79-100) Mean Corpuscular Hemoglobin 30 pg (25-35) 30 pg (25-35) Mean Corpuscular Hemoglobin Concent 32 g/dL (31-37) 32 g/dL (31-37) Red Cell Distribution Width 14.0 % (11.5-14.5) 14.0 % (11.5-14.5) Platelet Count 193 x10^3/uL (140-400) 181 x10^3/uL (140-400) Neutrophils (%) (Auto) 80 % (31-73) 73 % (31-73) Lymphocytes (%) (Auto) 9 % (24-48) 13 % (24-48) Monocytes (%) (Auto) 8 % (0-9) 11 % (0-9) Eosinophils (%) (Auto) 1 % (0-3) 3 % (0-3) Basophils (%) (Auto) 1 % (0-3) 1 % (0-3) Neutrophils # (Auto) 4.8 x10^3uL (1.8-7.7) 4.0 x10^3uL (1.8-7.7) Lymphocytes # (Auto) 0.6 x10^3/uL (1.0-4.8) 0.7 x10^3/uL (1.0-4.8) Monocytes # (Auto) 0.5 x10^3/uL (0.0-1.1) 0.6 x10^3/uL (0.0-1.1) Eosinophils # (Auto) 0.1 x10^3/uL (0.0-0.7) 0.1 x10^3/uL (0.0-0.7) Basophils # (Auto) 0.1 x10^3/uL (0.0-0.2) 0.0 x10^3/uL (0.0-0.2) Prothrombin Time 14.4 SEC (11.7-14.0) Prothromb Time International Ratio 1.2 (0.8-1.1) Activated Partial Thromboplast Time 31 SEC (24-38) Sodium Level 136 mmol/L (136-145) 137 mmol/L (136-145) Potassium Level 4.8 mmol/L (3.5-5.1) 4.7 mmol/L (3.5-5.1) Chloride Level 103 mmol/L (98-107) 105 mmol/L (98-107) Carbon Dioxide Level 25 mmol/L (21-32) 24 mmol/L (21-32) Anion Gap 8 (6-14) 8 (6-14) Blood Urea Nitrogen 21 mg/dL (8-26) 20 mg/dL (8-26) Creatinine 2.3 mg/dL (0.7-1.3) 2.1 mg/dL (0.7-1.3) Estimated GFR (Cockcroft-Gault) 33.1 36.8 Glucose Level 90 mg/dL (70-99) 105 mg/dL (70-99) Calcium Level 9.4 mg/dL (8.5-10.1) 8.3 mg/dL (8.5-10.1) Total Bilirubin 0.6 mg/dL (0.2-1.0) 0.5 mg/dL (0.2-1.0) Direct Bilirubin 0.1 mg/dL (0.0-0.2) Aspartate Amino Transf (AST/SGOT) 23 U/L (15-37) 19 U/L (15-37) Alanine Aminotransferase (ALT/SGPT) 19 U/L (16-63) 15 U/L (16-63) Alkaline Phosphatase 69 U/L (46-116) 60 U/L (46-116) Creatine Kinase 130 U/L (39-308) Creatine Kinase MB (Mass) 2.4 ng/mL (0.0-3.6) Creatine Kinase MB Relative Index 1.8 % (0-4) Total Protein 7.6 g/dL (6.4-8.2) 6.0 g/dL (6.4-8.2) Albumin 3.3 g/dL (3.4-5.0) 2.8 g/dL (3.4-5.0) Lipase 72 U/L (73-393) BUN/Creatinine Ratio 10 (6-20) Albumin/Globulin Ratio 0.9 (1.0-1.7) Laboratory Tests Test 07/23/16 16:55 07/23/16 17:30 07/24/16 04:55 Urine Color Yellow Urine Clarity Clear Urine pH 5.5 Urine Specific Kendrick 1.015 Urine Protein Negative mg/dL (NEG-TRACE) Urine Glucose (UA) Negative mg/dL (NEG) Urine Ketones (Stick) Trace mg/dL (NEG) Urine Blood Negative (NEG) Urine Nitrite Negative (NEG) Urine Bilirubin Small (NEG) Urine Urobilinogen Dipstick 0.2 mg/dL (0.2 mg/dL) Urine Leukocyte Esterase Large (NEG) Urine RBC 0 /HPF (0-2) Urine WBC 5-10 /HPF (0-4) Urine Squamous Epithelial Cells Occ /LPF Urine Bacteria Few /HPF (0-FEW) Urine Mucus Mod /LPF White Blood Count 6.0 x10^3/uL (4.0-11.0) 5.5 x10^3/uL (4.0-11.0) Red Blood Count 3.75 x10^6/uL (4.30-5.70) 3.49 x10^6/uL (4.30-5.70) Hemoglobin 11.1 g/dL (13.0-17.5) 10.3 g/dL (13.0-17.5) Hematocrit 34.9 % (39.0-53.0) 32.4 % (39.0-53.0) Mean Corpuscular Volume 93 fL (79-100) 93 fL (79-100) Mean Corpuscular Hemoglobin 30 pg (25-35) 30 pg (25-35) Mean Corpuscular Hemoglobin Concent 32 g/dL (31-37) 32 g/dL (31-37) Red Cell Distribution Width 14.0 % (11.5-14.5) 14.0 % (11.5-14.5) Platelet Count 193 x10^3/uL (140-400) 181 x10^3/uL (140-400) Neutrophils (%) (Auto) 80 % (31-73) 73 % (31-73) Lymphocytes (%) (Auto) 9 % (24-48) 13 % (24-48) Monocytes (%) (Auto) 8 % (0-9) 11 % (0-9) Eosinophils (%) (Auto) 1 % (0-3) 3 % (0-3) Basophils (%) (Auto) 1 % (0-3) 1 % (0-3) Neutrophils # (Auto) 4.8 x10^3uL (1.8-7.7) 4.0 x10^3uL (1.8-7.7) Lymphocytes # (Auto) 0.6 x10^3/uL (1.0-4.8) 0.7 x10^3/uL (1.0-4.8) Monocytes # (Auto) 0.5 x10^3/uL (0.0-1.1) 0.6 x10^3/uL (0.0-1.1) Eosinophils # (Auto) 0.1 x10^3/uL (0.0-0.7) 0.1 x10^3/uL (0.0-0.7) Basophils # (Auto) 0.1 x10^3/uL (0.0-0.2) 0.0 x10^3/uL (0.0-0.2) Prothrombin Time 14.4 SEC (11.7-14.0) Prothromb Time International Ratio 1.2 (0.8-1.1) Activated Partial Thromboplast Time 31 SEC (24-38) Sodium Level 136 mmol/L (136-145) 137 mmol/L (136-145) Potassium Level 4.8 mmol/L (3.5-5.1) 4.7 mmol/L (3.5-5.1) Chloride Level 103 mmol/L (98-107) 105 mmol/L (98-107) Carbon Dioxide Level 25 mmol/L (21-32) 24 mmol/L (21-32) Anion Gap 8 (6-14) 8 (6-14) Blood Urea Nitrogen 21 mg/dL (8-26) 20 mg/dL (8-26) Creatinine 2.3 mg/dL (0.7-1.3) 2.1 mg/dL (0.7-1.3) Estimated GFR (Cockcroft-Gault) 33.1 36.8 Glucose Level 90 mg/dL (70-99) 105 mg/dL (70-99) Calcium Level 9.4 mg/dL (8.5-10.1) 8.3 mg/dL (8.5-10.1) Total Bilirubin 0.6 mg/dL (0.2-1.0) 0.5 mg/dL (0.2-1.0) Direct Bilirubin 0.1 mg/dL (0.0-0.2) Aspartate Amino Transf (AST/SGOT) 23 U/L (15-37) 19 U/L (15-37) Alanine Aminotransferase (ALT/SGPT) 19 U/L (16-63) 15 U/L (16-63) Alkaline Phosphatase 69 U/L (46-116) 60 U/L (46-116) Creatine Kinase 130 U/L (39-308) Creatine Kinase MB (Mass) 2.4 ng/mL (0.0-3.6) Creatine Kinase MB Relative Index 1.8 % (0-4) Total Protein 7.6 g/dL (6.4-8.2) 6.0 g/dL (6.4-8.2) Albumin 3.3 g/dL (3.4-5.0) 2.8 g/dL (3.4-5.0) Lipase 72 U/L (73-393) BUN/Creatinine Ratio 10 (6-20) Albumin/Globulin Ratio 0.9 (1.0-1.7) Assessment/Plan Assessment/Plan cholecystitis ascites ARF, Cr 2.1 diarrhea fluid resuscitation plans for lap reina today will consult GI for evaluation of ongoing diarrhea ANDREAS WATTS MD 07/24/16 0858: CONSULT Allergies Allergies: Coded Allergies: Fish Containing Products (Verified Allergy, Intermediate, Rash, 03/07/13) RASH ON LEGS Pella-3 acid Ethyl Esters (Verified Allergy, Intermediate, Rash, 03/07/13) RASH ON LEGS Assessment/Plan Assessment/Plan patient seen and examined by me. Complains of right sided abdominal pain with diarrhea for several weeks. U/S of the abd showing gallbladder wall thickening and sludge with Rosado's sign. Abd is soft, mildly distended and TTP RUQ. Plan L /S Reina today. Agree with Terrie's assessment and plan. JOSE MCCOLLUM APRN Jul 24, 2016 08:15 ANDREAS WATTS MD Jul 24, 2016 08:58
[2016-07-24] MEDS: IV NORMAL SALINE 1000ML BAG 1,000 ML IV SCH (08:20)
[2016-07-24] MEDS ORDERED: ROCURONIUM 50 MG/5 ML VIAL. ONE (10:35)
[2016-07-24] MEDS ORDERED: FAMOTIDINE 20 MG/2 ML VIAL ONE (10:35)
[2016-07-24] MEDS ORDERED: LIDOCAINE 2% PF Vial for OR 5 ML VIAL. ONE (10:35)
[2016-07-24] MEDS ORDERED: fentaNYL PF VIAL 100 MCG/2 ML VIAL ONE (10:35)
[2016-07-24] MEDS ORDERED: PROPOFOL 20 ML IV ONE (10:35)
[2016-07-24] MEDS ORDERED: ONDANSETRON PF 4 MG/2 ML VIAL. ONE (10:35)
--- NOTE | 2016-07-24 10:40 | PDOC2 ---
GI CONSULT Reason For Consult: Diarrhea HPI: HPI: 80 y/o male w/ upper abd pain recently, worse after eating, unimproved w/ trial of H2 shyam. Scheduled for cholecystectomy later today, labs and imaging as below. Has also had abdominal distention and diarrhea lately. No precipitating events. 3-5 stools daily, some watery, some soft. Occasional reflux, no NSAIDs. Denies n/v, weight loss, hematochezia, melena. Office records: colonoscopy (Dr. Holliday) in 2006: normal mucosa throughout, sigmoid diverticulosis, internal hemorrhoids. Also reports previous EGD and colonoscopy around 2012 @ [place], believes both normal. PMH: PMH: HTN, BPH, right CTR, right inguinal hernia repair FH: Family History: No pertinent hx Social History: Smoke: No ALCOHOL: none Drugs: None ROS: GEN: Denies fevers, chills, sweats HEENT: Denies blurred vision, sore throat CV: Denies chest pain RESP: Denies shortness of air, cough GI: Per HPI : Denies hematuria, dysuria ENDO: Denies weight changes NEURO: Denies confusion, dizziness MSK: Denies weakness, joint pain/swelling SKIN: Denies jaundice, pruritus Vitals: Vitals: Vital Signs Date Time Temp Pulse Resp B/P (MAP) Pulse Ox O2 Delivery O2 Flow Rate FiO2 07/24/16 09:46 98.2 71 20 165/83 97 Room Air 98.2 Labs: Labs: Laboratory Tests Test 07/23/16 16:55 07/23/16 17:30 07/24/16 04:55 Urine Color Yellow Urine Clarity Clear Urine pH 5.5 Urine Specific [place] 1.015 Urine Protein Negative mg/dL (NEG-TRACE) Urine Glucose (UA) Negative mg/dL (NEG) Urine Ketones (Stick) Trace mg/dL (NEG) Urine Blood Negative (NEG) Urine Nitrite Negative (NEG) Urine Bilirubin Small (NEG) Urine Urobilinogen Dipstick 0.2 mg/dL (0.2 mg/dL) Urine Leukocyte Esterase Large (NEG) Urine RBC 0 /HPF (0-2) Urine WBC 5-10 /HPF (0-4) Urine Squamous Epithelial Cells Occ /LPF Urine Bacteria Few /HPF (0-FEW) Urine Mucus Mod /LPF White Blood Count 6.0 x10^3/uL (4.0-11.0) 5.5 x10^3/uL (4.0-11.0) Red Blood Count 3.75 x10^6/uL (4.30-5.70) 3.49 x10^6/uL (4.30-5.70) Hemoglobin 11.1 g/dL (13.0-17.5) 10.3 g/dL (13.0-17.5) Hematocrit 34.9 % (39.0-53.0) 32.4 % (39.0-53.0) Mean Corpuscular Volume 93 fL (79-100) 93 fL (79-100) Mean Corpuscular Hemoglobin 30 pg (25-35) 30 pg (25-35) Mean Corpuscular Hemoglobin Concent 32 g/dL (31-37) 32 g/dL (31-37) Red Cell Distribution Width 14.0 % (11.5-14.5) 14.0 % (11.5-14.5) Platelet Count 193 x10^3/uL (140-400) 181 x10^3/uL (140-400) Neutrophils (%) (Auto) 80 % (31-73) 73 % (31-73) Lymphocytes (%) (Auto) 9 % (24-48) 13 % (24-48) Monocytes (%) (Auto) 8 % (0-9) 11 % (0-9) Eosinophils (%) (Auto) 1 % (0-3) 3 % (0-3) Basophils (%) (Auto) 1 % (0-3) 1 % (0-3) Neutrophils # (Auto) 4.8 x10^3uL (1.8-7.7) 4.0 x10^3uL (1.8-7.7) Lymphocytes # (Auto) 0.6 x10^3/uL (1.0-4.8) 0.7 x10^3/uL (1.0-4.8) Monocytes # (Auto) 0.5 x10^3/uL (0.0-1.1) 0.6 x10^3/uL (0.0-1.1) Eosinophils # (Auto) 0.1 x10^3/uL (0.0-0.7) 0.1 x10^3/uL (0.0-0.7) Basophils # (Auto) 0.1 x10^3/uL (0.0-0.2) 0.0 x10^3/uL (0.0-0.2) Prothrombin Time 14.4 SEC (11.7-14.0) Prothromb Time International Ratio 1.2 (0.8-1.1) Activated Partial Thromboplast Time 31 SEC (24-38) Sodium Level 136 mmol/L (136-145) 137 mmol/L (136-145) Potassium Level 4.8 mmol/L (3.5-5.1) 4.7 mmol/L (3.5-5.1) Chloride Level 103 mmol/L (98-107) 105 mmol/L (98-107) Carbon Dioxide Level 25 mmol/L (21-32) 24 mmol/L (21-32) Anion Gap 8 (6-14) 8 (6-14) Blood Urea Nitrogen 21 mg/dL (8-26) 20 mg/dL (8-26) Creatinine 2.3 mg/dL (0.7-1.3) 2.1 mg/dL (0.7-1.3) Estimated GFR (Cockcroft-Gault) 33.1 36.8 Glucose Level 90 mg/dL (70-99) 105 mg/dL (70-99) Calcium Level 9.4 mg/dL (8.5-10.1) 8.3 mg/dL (8.5-10.1) Total Bilirubin 0.6 mg/dL (0.2-1.0) 0.5 mg/dL (0.2-1.0) Direct Bilirubin 0.1 mg/dL (0.0-0.2) Aspartate Amino Transf (AST/SGOT) 23 U/L (15-37) 19 U/L (15-37) Alanine Aminotransferase (ALT/SGPT) 19 U/L (16-63) 15 U/L (16-63) Alkaline Phosphatase 69 U/L (46-116) 60 U/L (46-116) Creatine Kinase 130 U/L (39-308) Creatine Kinase MB (Mass) 2.4 ng/mL (0.0-3.6) Creatine Kinase MB Relative Index 1.8 % (0-4) Total Protein 7.6 g/dL (6.4-8.2) 6.0 g/dL (6.4-8.2) Albumin 3.3 g/dL (3.4-5.0) 2.8 g/dL (3.4-5.0) Lipase 72 U/L (73-393) BUN/Creatinine Ratio 10 (6-20) Albumin/Globulin Ratio 0.9 (1.0-1.7) Allergies: Coded Allergies: Fish Containing Products (Verified Allergy, Intermediate, Rash, 03/07/13) RASH ON LEGS [place]-3 acid Ethyl Esters (Verified Allergy, Intermediate, Rash, 03/07/13) RASH ON LEGS Medications: Current Medications Medications (Trade) Dose Ordered Sig/[place] Route PRN Reason Start Time Stop Time Status Last Admin Dose Admin Fentanyl Citrate (Fentanyl 2ml Vial) 25 mcg PRN Q15MIN PRN IV PAIN GREATER THAN 3/10 07/23/16 16:45 07/24/16 16:44 07/23/16 19:35 Sodium Chloride 1,000 ml @ 75 mls/hr [id number] IV 07/23/16 19:15 07/24/16 08:20 Morphine Sulfate 2 mg PRN Q2HR PRN IV PAIN 07/23/16 19:30 07/24/16 05:16 Iohexol (Omnipaque 240 Mg/ml) 50 ml 1X ONCE PO 07/23/16 19:45 07/23/16 19:46 DC 07/23/16 19:56 Imaging: Imaging: Abd US 07/23/16 IMPRESSION: Diffuse biliary sludge within the gallbladder. Gallbladder wall thickening. Positive Rosado's sign. Therefore this may be seen with cholecystitis. Small liver with moderate ascites. Cirrhosis is a possibility. CT A/P w/ oral contrast 07/23/16 IMPRESSION: Moderate ascites. Small liver. The spleen is small in size as well. Gallbladder distention. See ultrasound report. Wall thickening of the distal antrum of the the stomach. Gastritis is possible. Enlarged prostate gland. Small radiolucent areas of the right iliac bone and L4. Osseous metastatic disease is in the differential diagnosis. Contrast is seen within the distal esophagus which may be due to esophageal dysmotility or gastroesophageal reflux. 5.1 cm complex cystic lesion lower pole of the right kidney. Calcification is evident. Cystic neoplasm is possible. Recommend OUTPATIENT CT study of the abdomen with contrast for further evaluation. PE: GEN: NAD HEENT: Atraumatic, PERRL LUNGS: CTAB anteriorly HEART: RRR ABD: BS+, upper discomfort, distended EXTREMITY: No edema SKIN: No rashes, no jaundice NEURO/PSYCH: A & O 3 A/P: A/P: Upper abdominal pain Abd distention, diarrhea Abnormal abd imaging -GB sludge and wall thickening -small liver/possible cirrhosis w/ modearte ascites -possible gastritis, also GERD/esophageal dysmotility -right kidney lesion CRC screen -reports normal colonoscopy 2012 Normocytic anemia -- Await operative findings. Will check stool studies re: diarrhea. Will add PPI. ?further workup for small liver, cirrhosis - will review w/ DENISSE Coronado Jul 24, 2016 10:40
[2016-07-24] MEDS: PANTOPRAZOLE 40 MG TABLET.DR. PO SCH (11:00)
[2016-07-24] MEDS ORDERED: NEOSTIGMINE METHYLSULFATE 5 MG/5 ML SYRINGE. ONE (11:30)
[2016-07-24] MEDS ORDERED: GLYCOPYRROLATE 1 MG/5 ML VIAL. ONE (11:30)
[2016-07-24] MEDS ORDERED: DESFLURANE 31 TO 60 MINUTES IH ONE (11:32)
--- NOTE | 2016-07-24 11:39 | PDOC ---
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
[2016-07-24] MEDS ORDERED: oxyCODONE/APAP 5/325 1 TAB TABLET PO PRN (11:45)
[2016-07-24] MEDS ORDERED: IV RINGERS,LACTATED 1000ML 1,000 ML IV SCH (11:56)
[2016-07-24] MEDS ORDERED: HYDROmorphone 2 MG/ML VIAL IV PRN (12:00)
[2016-07-24] MEDS ORDERED: ONDANSETRON PF 4 MG/2 ML VIAL. IV PRN (12:00)
[2016-07-24] MEDS ORDERED: LIDOCAINE 1% 1 ML SYRINGE. ID PRN (12:00)
[2016-07-24] MEDS ORDERED: fentaNYL PF VIAL 100 MCG/2 ML VIAL IV PRN (12:00)
[2016-07-24] MEDS ORDERED: PROCHLORPERAZINE 10 MG/2 ML VIAL. IV PRN (12:00)
[2016-07-24] MEDS: fentaNYL PF VIAL 100 MCG/2 ML VIAL IV PRN ×2 (12:10→12:26)
[2016-07-24] MEDS: hydrALAZINE 20 MG/ML VIAL. IVP PRN (12:22)
--- NOTE | 2016-07-24 13:50 | PDOC ---
PROGRESS NOTES Chief Complaint Chief Complaint Cholecystitis ASSESSMENT AND PLAN: 1. Cholecystitis: s/p surgery with findings of perit carcinomatosis, which was bx.ed. further surgery aborted. 2. Metast CA: unk primary at this time. await bx results. onc consult. suspected bone mets as well per CT. prognosis poor. palliative services not available for next 5 days 3. HTN: restart home meds 4. Pain control: IV/PO narcotics PRN; start bowel regimen concurrently The findings and suspected dx were discussed with pt, and 2 children at length. Impression of metastatic CA relayed, which would be incurable, but possibly treatable. Symptomatic treatments such as paracentesis discussed as well. 30 min spent in discussion. All questions answered History of Present Illness History of Present Illness s/p ex lap; feels ok. no pain Vitals Vitals Vital Signs Date Time Temp Pulse Resp B/P (MAP) Pulse Ox O2 Delivery O2 Flow Rate FiO2 07/24/16 13:02 85 18 150/72 96 Nasal Cannula 2 07/24/16 11:47 97.5 97.5 Physical Exam General: Alert, Oriented X3, Cooperative, No acute distress Heart: Regular rate, No murmurs Lungs: Clear Abdomen: Soft, Other (distended, tender across upper abdomen, RIH scar present ) Extremities: No cyanosis, Other (mild clubbing) Skin: No rashes Labs LABS Laboratory Tests Test 07/23/16 16:55 07/23/16 17:30 07/24/16 04:55 Urine Color Yellow Urine Clarity Clear Urine pH 5.5 Urine Specific [place] 1.015 Urine Protein Negative mg/dL (NEG-TRACE) Urine Glucose (UA) Negative mg/dL (NEG) Urine Ketones (Stick) Trace mg/dL (NEG) Urine Blood Negative (NEG) Urine Nitrite Negative (NEG) Urine Bilirubin Small (NEG) Urine Urobilinogen Dipstick 0.2 mg/dL (0.2 mg/dL) Urine Leukocyte Esterase Large (NEG) Urine RBC 0 /HPF (0-2) Urine WBC 5-10 /HPF (0-4) Urine Squamous Epithelial Cells Occ /LPF Urine Bacteria Few /HPF (0-FEW) Urine Mucus Mod /LPF White Blood Count 6.0 x10^3/uL (4.0-11.0) 5.5 x10^3/uL (4.0-11.0) Red Blood Count 3.75 x10^6/uL (4.30-5.70) 3.49 x10^6/uL (4.30-5.70) Hemoglobin 11.1 g/dL (13.0-17.5) 10.3 g/dL (13.0-17.5) Hematocrit 34.9 % (39.0-53.0) 32.4 % (39.0-53.0) Mean Corpuscular Volume 93 fL (79-100) 93 fL (79-100) Mean Corpuscular Hemoglobin 30 pg (25-35) 30 pg (25-35) Mean Corpuscular Hemoglobin Concent 32 g/dL (31-37) 32 g/dL (31-37) Red Cell Distribution Width 14.0 % (11.5-14.5) 14.0 % (11.5-14.5) Platelet Count 193 x10^3/uL (140-400) 181 x10^3/uL (140-400) Neutrophils (%) (Auto) 80 % (31-73) 73 % (31-73) Lymphocytes (%) (Auto) 9 % (24-48) 13 % (24-48) Monocytes (%) (Auto) 8 % (0-9) 11 % (0-9) Eosinophils (%) (Auto) 1 % (0-3) 3 % (0-3) Basophils (%) (Auto) 1 % (0-3) 1 % (0-3) Neutrophils # (Auto) 4.8 x10^3uL (1.8-7.7) 4.0 x10^3uL (1.8-7.7) Lymphocytes # (Auto) 0.6 x10^3/uL (1.0-4.8) 0.7 x10^3/uL (1.0-4.8) Monocytes # (Auto) 0.5 x10^3/uL (0.0-1.1) 0.6 x10^3/uL (0.0-1.1) Eosinophils # (Auto) 0.1 x10^3/uL (0.0-0.7) 0.1 x10^3/uL (0.0-0.7) Basophils # (Auto) 0.1 x10^3/uL (0.0-0.2) 0.0 x10^3/uL (0.0-0.2) Prothrombin Time 14.4 SEC (11.7-14.0) Prothromb Time International Ratio 1.2 (0.8-1.1) Activated Partial Thromboplast Time 31 SEC (24-38) Sodium Level 136 mmol/L (136-145) 137 mmol/L (136-145) Potassium Level 4.8 mmol/L (3.5-5.1) 4.7 mmol/L (3.5-5.1) Chloride Level 103 mmol/L (98-107) 105 mmol/L (98-107) Carbon Dioxide Level 25 mmol/L (21-32) 24 mmol/L (21-32) Anion Gap 8 (6-14) 8 (6-14) Blood Urea Nitrogen 21 mg/dL (8-26) 20 mg/dL (8-26) Creatinine 2.3 mg/dL (0.7-1.3) 2.1 mg/dL (0.7-1.3) Estimated GFR (Cockcroft-Gault) 33.1 36.8 Glucose Level 90 mg/dL (70-99) 105 mg/dL (70-99) Calcium Level 9.4 mg/dL (8.5-10.1) 8.3 mg/dL (8.5-10.1) Total Bilirubin 0.6 mg/dL (0.2-1.0) 0.5 mg/dL (0.2-1.0) Direct Bilirubin 0.1 mg/dL (0.0-0.2) Aspartate Amino Transf (AST/SGOT) 23 U/L (15-37) 19 U/L (15-37) Alanine Aminotransferase (ALT/SGPT) 19 U/L (16-63) 15 U/L (16-63) Alkaline Phosphatase 69 U/L (46-116) 60 U/L (46-116) Creatine Kinase 130 U/L (39-308) Creatine Kinase MB (Mass) 2.4 ng/mL (0.0-3.6) Creatine Kinase MB Relative Index 1.8 % (0-4) Total Protein 7.6 g/dL (6.4-8.2) 6.0 g/dL (6.4-8.2) Albumin 3.3 g/dL (3.4-5.0) 2.8 g/dL (3.4-5.0) Lipase 72 U/L (73-393) BUN/Creatinine Ratio 10 (6-20) Albumin/Globulin Ratio 0.9 (1.0-1.7) BYRON HARRISON MD Jul 24, 2016 13:50
[2016-07-24] MEDS: amLODIPine BESYLATE 5 MG TABLET PO SCH (14:29)
[2016-07-24] MEDS: METOPROLOL SUCC 24HR ER 100 MG TAB.ER.24H. PO SCH (14:30)
--- NOTE | 2016-07-24 16:38 | PDOC ---
Provider Note Provider Note Med Onc consult: Carcinomatosis of the abdomen and ascites Await path report. Pt and family want to pursue with palliative chemo as outpt. see dictation YU JIMENEZ MD Jul 24, 2016 16:38
--- NOTE | 2016-07-24 16:57 | OP ---
DATE OF SURGERY: 07/24/2016 PREOPERATIVE DIAGNOSIS: Cholecystitis. POSTOPERATIVE DIAGNOSIS: Carcinomatosis of the abdomen. PROCEDURE: Diagnostic laparoscopy with omental biopsies. SURGEON: Toby Watts MD INDICATIONS: The patient is an 80-year-old gentleman who was admitted to the hospital with an ultrasound showing thickened gallbladder wall with sludge and right upper quadrant abdominal pain. Procedure of laparoscopic cholecystectomy was explained to the patient in detail. Risks, benefits were also discussed including bleeding, infection, injury to intra-abdominal contents, possibly sustaining further open operations were explained to the patient in detail. Risks, benefits ____. The patient seemed to understand and gave verbal and written consent to have the procedure performed. DESCRIPTION OF PROCEDURE: The patient was taken to the operating room and supine position, general anesthesia was initiated. Once the patient was asleep and intubated, his abdomen was prepped and draped in usual sterile fashion using ChloraPrep. An area just below the umbilicus was injected with 0.25% Marcaine with epinephrine. Incision was made with an 11 blade scalpel and a Veress needle was placed within the abdomen. Pneumoperitoneum was achieved. Once this was complete, an 11 mm port was placed. There was quite a bit of ascites came up into the port. Some of this was suctioned. Camera was placed within the abdomen, it was noted that the abdomen was full of carcinomatosis and large amount of ascites. A second 5 mm port was placed in the epigastric area and the ascites was suctioned from the abdomen, was total of 3 liters of clear yellow ascitic fluid. Some of which was sent for cytology. In order to obtain a biopsy portion of the omentum was appeared to be the easiest place to take biopsy. A second 5 mm port was placed in the left mid abdomen using a LigaSure ____ a portion of the mesentery was removed and placed in EndoCatch bag and removed from the umbilicus and sent for pathology. At this point, the pneumoperitoneum was reduced. All ports were removed. Fascial defect at the umbilicus was closed with [id number] 0 Vicryl suture and the skin was reapproximated at all port sites with 4-0 subcuticular Monocryl. Mastisol, Steri-Strips and Band-Aids were applied as dressings. The patient was awakened, extubated in the operating room, taken to recovery in stable condition. All sponge, instrument counts were listed as correct. ESTIMATED BLOOD LOSS: 5 mL. TOBY WATTS MD DR: RODGER/elizabeth JOB#: [id number] / [id number] ecc ANH SHIRLEY MD
[2016-07-24 19:00] LABS: % SAT IRON 6 % (15-34); IRON,SERUM 17 ug/dL (65-175)
[2016-07-24 21:09] LABS: HEP A IGM ABDY Negative (Negative)
[2016-07-24] MEDS: FAMOTIDINE 20 MG TABLET. PO SCH (21:51)
[2016-07-24] MEDS ORDERED: TAMS0.4C2 PO (22:54)
[2016-07-24] MEDS ORDERED: VALS160T3 PO (22:56)
[2016-07-24] MEDS ORDERED: DUTA0.5C PO (22:56)
[2016-07-24] MEDS ORDERED: DICY20TA3 PO (22:57)
[2016-07-24] MEDS: DICYCLOMINE HCL 10 MG CAPSULE PO SCH (23:15)
[2016-07-24] MEDS: DUTASTERIDE 0.5 MG CAPSULE PO SCH (23:31)
[2016-07-24] MEDS: TAMSULOSIN 0.4 MG CAP.ER.24H. PO SCH (23:31)
[2016-07-25] MEDS: IV NORMAL SALINE 1000ML BAG 1,000 ML IV SCH ×2 (01:25→13:35)
[2016-07-25] MEDS: MORPHINE SULFATE 2 MG/ML DISP.SYRIN. IV PRN (01:33)
[2016-07-25 05:15] LABS: CALCIUM 8.4 mg/dL (8.5-10.1); CREATININE 1.9 mg/dL (0.7-1.3); GFR 41.3; POTASSIUM 4.9 mmol/L (3.5-5.1)
[2016-07-25 07:00] VITALS: BP 145/79
[2016-07-25] MEDS: ONDANSETRON PF 4 MG/2 ML VIAL. IV PRN (08:17)
[2016-07-25] MEDS: LOSARTAN POTASSIUM 50 MG TABLET. PO SCH (08:19)
[2016-07-25] MEDS: TAMSULOSIN 0.4 MG CAP.ER.24H. PO SCH (08:19)
[2016-07-25] MEDS: DUTASTERIDE 0.5 MG CAPSULE PO SCH (08:20)
[2016-07-25] MEDS: PANTOPRAZOLE 40 MG TABLET.DR. PO SCH (08:20)
[2016-07-25] MEDS: DICYCLOMINE HCL 10 MG CAPSULE PO SCH ×4 (08:20→21:06)
[2016-07-25] MEDS: amLODIPine BESYLATE 5 MG TABLET PO SCH (08:21)
[2016-07-25] MEDS: METOPROLOL SUCC 24HR ER 100 MG TAB.ER.24H. PO SCH ×2 (08:21→21:07)
[2016-07-25] MEDS: oxyCODONE/APAP 5/325 1 TAB TABLET PO PRN ×2 (08:22→17:25)
[2016-07-25] MEDS ORDERED: TAMSULOSIN 0.4 MG CAP.ER.24H. PO SCH (09:00)
[2016-07-25] MEDS ORDERED: DUTASTERIDE 0.5 MG CAPSULE PO SCH (09:00)
--- NOTE | 2016-07-25 09:37 | PDOC ---
JOSE MCCOLLUM ENVELOPE STAMPING MACHINE OPERATOR 07/25/16 0937: SURGICAL PROGRESS NOTE Subjective feeling better frequent urination Vital Signs Vital Signs Date Time Temp Pulse Resp B/P (MAP) Pulse Ox O2 Delivery O2 Flow Rate FiO2 07/25/16 08:22 96 Room Air 2.0 07/25/16 08:21 82 145/79 07/25/16 07:00 99.0 16 99.0 I&O Intake and Output 07/25/16 07:00 Intake Total 1190 ml Output Total 5 ml Balance 1185 ml Intake Oral 240 ml IV Total 950 ml Estimated Blood Loss 5 ml # Voids 2 # Bowel Movements 1 General: Alert, Oriented X3, Cooperative, No acute distress Abdomen: Soft, Other (lap dressings dry) Labs Laboratory Tests Test 07/23/16 16:55 07/23/16 17:30 07/24/16 04:55 07/24/16 05:00 Urine Color Yellow Urine Clarity Clear Urine pH 5.5 Urine Specific [place] 1.015 Urine Protein Negative mg/dL (NEG-TRACE) Urine Glucose (UA) Negative mg/dL (NEG) Urine Ketones (Stick) Trace mg/dL (NEG) Urine Blood Negative (NEG) Urine Nitrite Negative (NEG) Urine Bilirubin Small (NEG) Urine Urobilinogen Dipstick 0.2 mg/dL (0.2 mg/dL) Urine Leukocyte Esterase Large (NEG) Urine RBC 0 /HPF (0-2) Urine WBC 5-10 /HPF (0-4) Urine Squamous Epithelial Cells Occ /LPF Urine Bacteria Few /HPF (0-FEW) Urine Mucus Mod /LPF White Blood Count 6.0 x10^3/uL (4.0-11.0) 5.5 x10^3/uL (4.0-11.0) Red Blood Count 3.75 x10^6/uL (4.30-5.70) 3.49 x10^6/uL (4.30-5.70) Hemoglobin 11.1 g/dL (13.0-17.5) 10.3 g/dL (13.0-17.5) Hematocrit 34.9 % (39.0-53.0) 32.4 % (39.0-53.0) Mean Corpuscular Volume 93 fL (79-100) 93 fL (79-100) Mean Corpuscular Hemoglobin 30 pg (25-35) 30 pg (25-35) Mean Corpuscular Hemoglobin Concent 32 g/dL (31-37) 32 g/dL (31-37) Red Cell Distribution Width 14.0 % (11.5-14.5) 14.0 % (11.5-14.5) Platelet Count 193 x10^3/uL (140-400) 181 x10^3/uL (140-400) Neutrophils (%) (Auto) 80 % (31-73) 73 % (31-73) Lymphocytes (%) (Auto) 9 % (24-48) 13 % (24-48) Monocytes (%) (Auto) 8 % (0-9) 11 % (0-9) Eosinophils (%) (Auto) 1 % (0-3) 3 % (0-3) Basophils (%) (Auto) 1 % (0-3) 1 % (0-3) Neutrophils # (Auto) 4.8 x10^3uL (1.8-7.7) 4.0 x10^3uL (1.8-7.7) Lymphocytes # (Auto) 0.6 x10^3/uL (1.0-4.8) 0.7 x10^3/uL (1.0-4.8) Monocytes # (Auto) 0.5 x10^3/uL (0.0-1.1) 0.6 x10^3/uL (0.0-1.1) Eosinophils # (Auto) 0.1 x10^3/uL (0.0-0.7) 0.1 x10^3/uL (0.0-0.7) Basophils # (Auto) 0.1 x10^3/uL (0.0-0.2) 0.0 x10^3/uL (0.0-0.2) Prothrombin Time 14.4 SEC (11.7-14.0) Prothromb Time International Ratio 1.2 (0.8-1.1) Activated Partial Thromboplast Time 31 SEC (24-38) Sodium Level 136 mmol/L (136-145) 137 mmol/L (136-145) Potassium Level 4.8 mmol/L (3.5-5.1) 4.7 mmol/L (3.5-5.1) Chloride Level 103 mmol/L (98-107) 105 mmol/L (98-107) Carbon Dioxide Level 25 mmol/L (21-32) 24 mmol/L (21-32) Anion Gap 8 (6-14) 8 (6-14) Blood Urea Nitrogen 21 mg/dL (8-26) 20 mg/dL (8-26) Creatinine 2.3 mg/dL (0.7-1.3) 2.1 mg/dL (0.7-1.3) Estimated GFR (Cockcroft-Gault) 33.1 36.8 Glucose Level 90 mg/dL (70-99) 105 mg/dL (70-99) Calcium Level 9.4 mg/dL (8.5-10.1) 8.3 mg/dL (8.5-10.1) Total Bilirubin 0.6 mg/dL (0.2-1.0) 0.5 mg/dL (0.2-1.0) Direct Bilirubin 0.1 mg/dL (0.0-0.2) Aspartate Amino Transf (AST/SGOT) 23 U/L (15-37) 19 U/L (15-37) Alanine Aminotransferase (ALT/SGPT) 19 U/L (16-63) 15 U/L (16-63) Alkaline Phosphatase 69 U/L (46-116) 60 U/L (46-116) Creatine Kinase 130 U/L (39-308) Creatine Kinase MB (Mass) 2.4 ng/mL (0.0-3.6) Creatine Kinase MB Relative Index 1.8 % (0-4) Total Protein 7.6 g/dL (6.4-8.2) 6.0 g/dL (6.4-8.2) Albumin 3.3 g/dL (3.4-5.0) 2.8 g/dL (3.4-5.0) Lipase 72 U/L (73-393) BUN/Creatinine Ratio 10 (6-20) Albumin/Globulin Ratio 0.9 (1.0-1.7) Hepatitis A IgM Antibody Negative (Negative) Hepatitis B Surface Antigen Negative (Negative) Hepatitis B Core IgM Antibody Negative (Negative) Hepatitis C Antibody <0.1 s/co ratio Test 07/24/16 16:20 07/24/16 16:47 07/25/16 04:05 Tumor Marker Alpha Fetoprotein 3.8 ng/mL (0.0-8.3) Iron Level 17 ug/dL (65-175) Total Iron Binding Capacity 276 ug/dL (250-450) Iron Saturation 6 % (15-34) Ferritin 452 ng/mL (26-388) Sodium Level 135 mmol/L (136-145) Potassium Level 4.9 mmol/L (3.5-5.1) Chloride Level 103 mmol/L (98-107) Carbon Dioxide Level 21 mmol/L (21-32) Anion Gap 11 (6-14) Blood Urea Nitrogen 20 mg/dL (8-26) Creatinine 1.9 mg/dL (0.7-1.3) Estimated GFR (Cockcroft-Gault) 41.3 Glucose Level 161 mg/dL (70-99) Calcium Level 8.4 mg/dL (8.5-10.1) Laboratory Tests Test 07/24/16 16:20 07/24/16 16:47 07/25/16 04:05 Tumor Marker Alpha Fetoprotein 3.8 ng/mL (0.0-8.3) Iron Level 17 ug/dL (65-175) Total Iron Binding Capacity 276 ug/dL (250-450) Iron Saturation 6 % (15-34) Ferritin 452 ng/mL (26-388) Sodium Level 135 mmol/L (136-145) Potassium Level 4.9 mmol/L (3.5-5.1) Chloride Level 103 mmol/L (98-107) Carbon Dioxide Level 21 mmol/L (21-32) Anion Gap 11 (6-14) Blood Urea Nitrogen 20 mg/dL (8-26) Creatinine 1.9 mg/dL (0.7-1.3) Estimated GFR (Cockcroft-Gault) 41.3 Glucose Level 161 mg/dL (70-99) Calcium Level 8.4 mg/dL (8.5-10.1) Problem List Problems Medical Problems: (1) Abdominal pain Status: Acute Assessment/Plan Carcinomatosis of the abdomen. s/p Diagnostic laparoscopy with omental biopsies. path pending, Oncology following Problems: JASON ANGEL MD 07/25/16 1423: SURGICAL PROGRESS NOTE Assessment/Plan Agree with above Problems: JOSE MCCOLLUM ENVELOPE STAMPING MACHINE OPERATOR Jul 25, 2016 09:37 JASON ANGEL MD Jul 25, 2016 14:23
[2016-07-25 11:00] VITALS: BP 132/78
--- NOTE | 2016-07-25 13:39 | PDOC ---
G I PROGRESS NOTE Reason for Follow-up Ascites/abd pain Subjective No new complaints Physical Exam Lungs clear CV S1 S2 ABD +BS, soft, incisions intact Review of Relevant I have reviewed the following items bishnu (where applicable) has been applied. Labs Laboratory Tests Test 07/23/16 16:55 07/23/16 17:30 07/24/16 04:55 07/24/16 05:00 Urine Color Yellow Urine Clarity Clear Urine pH 5.5 Urine Specific [place] 1.015 Urine Protein Negative mg/dL (NEG-TRACE) Urine Glucose (UA) Negative mg/dL (NEG) Urine Ketones (Stick) Trace mg/dL (NEG) Urine Blood Negative (NEG) Urine Nitrite Negative (NEG) Urine Bilirubin Small (NEG) Urine Urobilinogen Dipstick 0.2 mg/dL (0.2 mg/dL) Urine Leukocyte Esterase Large (NEG) Urine RBC 0 /HPF (0-2) Urine WBC 5-10 /HPF (0-4) Urine Squamous Epithelial Cells Occ /LPF Urine Bacteria Few /HPF (0-FEW) Urine Mucus Mod /LPF White Blood Count 6.0 x10^3/uL (4.0-11.0) 5.5 x10^3/uL (4.0-11.0) Red Blood Count 3.75 x10^6/uL (4.30-5.70) 3.49 x10^6/uL (4.30-5.70) Hemoglobin 11.1 g/dL (13.0-17.5) 10.3 g/dL (13.0-17.5) Hematocrit 34.9 % (39.0-53.0) 32.4 % (39.0-53.0) Mean Corpuscular Volume 93 fL (79-100) 93 fL (79-100) Mean Corpuscular Hemoglobin 30 pg (25-35) 30 pg (25-35) Mean Corpuscular Hemoglobin Concent 32 g/dL (31-37) 32 g/dL (31-37) Red Cell Distribution Width 14.0 % (11.5-14.5) 14.0 % (11.5-14.5) Platelet Count 193 x10^3/uL (140-400) 181 x10^3/uL (140-400) Neutrophils (%) (Auto) 80 % (31-73) 73 % (31-73) Lymphocytes (%) (Auto) 9 % (24-48) 13 % (24-48) Monocytes (%) (Auto) 8 % (0-9) 11 % (0-9) Eosinophils (%) (Auto) 1 % (0-3) 3 % (0-3) Basophils (%) (Auto) 1 % (0-3) 1 % (0-3) Neutrophils # (Auto) 4.8 x10^3uL (1.8-7.7) 4.0 x10^3uL (1.8-7.7) Lymphocytes # (Auto) 0.6 x10^3/uL (1.0-4.8) 0.7 x10^3/uL (1.0-4.8) Monocytes # (Auto) 0.5 x10^3/uL (0.0-1.1) 0.6 x10^3/uL (0.0-1.1) Eosinophils # (Auto) 0.1 x10^3/uL (0.0-0.7) 0.1 x10^3/uL (0.0-0.7) Basophils # (Auto) 0.1 x10^3/uL (0.0-0.2) 0.0 x10^3/uL (0.0-0.2) Prothrombin Time 14.4 SEC (11.7-14.0) Prothromb Time International Ratio 1.2 (0.8-1.1) Activated Partial Thromboplast Time 31 SEC (24-38) Sodium Level 136 mmol/L (136-145) 137 mmol/L (136-145) Potassium Level 4.8 mmol/L (3.5-5.1) 4.7 mmol/L (3.5-5.1) Chloride Level 103 mmol/L (98-107) 105 mmol/L (98-107) Carbon Dioxide Level 25 mmol/L (21-32) 24 mmol/L (21-32) Anion Gap 8 (6-14) 8 (6-14) Blood Urea Nitrogen 21 mg/dL (8-26) 20 mg/dL (8-26) Creatinine 2.3 mg/dL (0.7-1.3) 2.1 mg/dL (0.7-1.3) Estimated GFR (Cockcroft-Gault) 33.1 36.8 Glucose Level 90 mg/dL (70-99) 105 mg/dL (70-99) Calcium Level 9.4 mg/dL (8.5-10.1) 8.3 mg/dL (8.5-10.1) Total Bilirubin 0.6 mg/dL (0.2-1.0) 0.5 mg/dL (0.2-1.0) Direct Bilirubin 0.1 mg/dL (0.0-0.2) Aspartate Amino Transf (AST/SGOT) 23 U/L (15-37) 19 U/L (15-37) Alanine Aminotransferase (ALT/SGPT) 19 U/L (16-63) 15 U/L (16-63) Alkaline Phosphatase 69 U/L (46-116) 60 U/L (46-116) Creatine Kinase 130 U/L (39-308) Creatine Kinase MB (Mass) 2.4 ng/mL (0.0-3.6) Creatine Kinase MB Relative Index 1.8 % (0-4) Total Protein 7.6 g/dL (6.4-8.2) 6.0 g/dL (6.4-8.2) Albumin 3.3 g/dL (3.4-5.0) 2.8 g/dL (3.4-5.0) Lipase 72 U/L (73-393) BUN/Creatinine Ratio 10 (6-20) Albumin/Globulin Ratio 0.9 (1.0-1.7) Hepatitis A IgM Antibody Negative (Negative) Hepatitis B Surface Antigen Negative (Negative) Hepatitis B Core IgM Antibody Negative (Negative) Hepatitis C Antibody <0.1 s/co ratio Test 07/24/16 16:20 07/24/16 16:47 07/25/16 04:05 Tumor Marker Alpha Fetoprotein 3.8 ng/mL (0.0-8.3) Iron Level 17 ug/dL (65-175) Total Iron Binding Capacity 276 ug/dL (250-450) Iron Saturation 6 % (15-34) Ferritin 452 ng/mL (26-388) Sodium Level 135 mmol/L (136-145) Potassium Level 4.9 mmol/L (3.5-5.1) Chloride Level 103 mmol/L (98-107) Carbon Dioxide Level 21 mmol/L (21-32) Anion Gap 11 (6-14) Blood Urea Nitrogen 20 mg/dL (8-26) Creatinine 1.9 mg/dL (0.7-1.3) Estimated GFR (Cockcroft-Gault) 41.3 Glucose Level 161 mg/dL (70-99) Calcium Level 8.4 mg/dL (8.5-10.1) Laboratory Tests Test 07/24/16 16:20 07/24/16 16:47 07/25/16 04:05 Tumor Marker Alpha Fetoprotein 3.8 ng/mL (0.0-8.3) Iron Level 17 ug/dL (65-175) Total Iron Binding Capacity 276 ug/dL (250-450) Iron Saturation 6 % (15-34) Ferritin 452 ng/mL (26-388) Sodium Level 135 mmol/L (136-145) Potassium Level 4.9 mmol/L (3.5-5.1) Chloride Level 103 mmol/L (98-107) Carbon Dioxide Level 21 mmol/L (21-32) Anion Gap 11 (6-14) Blood Urea Nitrogen 20 mg/dL (8-26) Creatinine 1.9 mg/dL (0.7-1.3) Estimated GFR (Cockcroft-Gault) 41.3 Glucose Level 161 mg/dL (70-99) Calcium Level 8.4 mg/dL (8.5-10.1) Medications Current Medications Fentanyl Citrate (Fentanyl 2ml Vial) 25 mcg PRN Q15MIN PRN IV PAIN GREATER THAN 3/10 Last administered on 07/23/16 19:35; Start 07/23/16 at 16:45; Stop 07/24 at 16:44; Status DC Ondansetron HCl (Zofran) 4 mg PRN Q8HRS PRN IV NAUSEA/VOMITING; Start 07/23/16 at 18:30; Stop 07/24/16 at 18:29; Status DC Fentanyl Citrate (Fentanyl 2ml Vial) 25 mcg PRN Q2HR PRN IV PAIN; Start at 18:30; Stop 07/23/16 at 19:32; Status DC Sodium Chloride 1,000 ml @ 75 mls/hr [id number] IV Last administered on 13:35; Start 07/23/16 at 19:15 Acetaminophen (Tylenol) 325 mg PRN Q6HRS PRN PO MILD PAIN / TEMP; Start at 19:15 Hydralazine HCl (Apresoline) 10 mg PRN Q4HRS PRN IVP ELEVATED BP, SEE COMMENTS Last administered on 07/24/16 12:22; Start 07/23/16 at 19:15 Ondansetron HCl (Zofran) 4 mg PRN Q8HRS PRN IV NAUSEA/VOMITING Last administered on 07/25/16 08:17; Start 07/23/16 at 19:15 Albuterol Sulfate (Ventolin Neb Soln) 2.5 mg PRN Q4HRS PRN NEB SHORTNESS OF BREATH; Start 07/23/16 at 19:15 Morphine Sulfate 2 mg PRN Q2HR PRN IV PAIN Last administered on 07/25/16 01:33 ; Start 07/23/16 at 19:30 Iohexol (Omnipaque 240 Mg/ml) 50 ml 1X ONCE PO Last administered on 07/23/16 19:56; Start 07/23/16 at 19:45; Stop 07/23/16 at 19:46; Status DC Info (Do NOT chart on this entry -- for MONITORING) 1 each PRN DAILY PRN MC SEE COMMENTS; Start 07/23/16 at 19:45; Stop 07/25/16 at 19:44 Cellulose 1 each STK-MED ONCE .ROUTE ; Start 07/24/16 at 08:11; Stop 07/24/16 at 08:12; Status DC Iohexol (Omnipaque 300 Mg/ml) 50 ml STK-MED ONCE .ROUTE ; Start 07/24/16 at 08:11 ; Stop 07/24/16 at 08:12; Status DC Bupivacaine HCl/ Epinephrine Bitart (Sensorcaine-Epi 0.25%-1:[id number] Mpf) 30 ml STK-MED ONCE .ROUTE Last administered on 07/24/16 11:10; Start 07/24/16 at 08:11 ; Stop 07/24/16 at 08:12; Status DC Cefazolin Sodium/ Dextrose 50 ml @ As Directed STK-MED ONCE IV ; Start 07/24/16 at 09:31; Stop 07/24/16 at 09:32; Status DC Famotidine (Pepcid) 20 mg STK-MED ONCE .ROUTE ; Start 07/24/16 at 10:35; Stop 07/24/16 at 10:36; Status DC Ondansetron HCl (Zofran) 4 mg STK-MED ONCE .ROUTE ; Start 07/24/16 at 10:35; Stop 07/24/16 at 10:36; Status DC Propofol 20 ml @ As Directed STK-MED ONCE IV ; Start 07/24/16 at 10:35; Stop 07/24 at 10:36; Status DC Lidocaine HCl (Lidocaine Pf 2% Vial) 5 ml STK-MED ONCE .ROUTE ; Start 07/24/16 at 10:35; Stop 07/24/16 at 10:36; Status DC Fentanyl Citrate (Fentanyl 2ml Vial) 100 mcg STK-MED ONCE .ROUTE ; Start at 10:35; Stop 07/24/16 at 10:36; Status DC Rocuronium [place] (Zemuron) 50 mg STK-MED ONCE .ROUTE ; Start 07/24/16 at 10:35 ; Stop 07/24/16 at 10:36; Status DC Pantoprazole Sodium (Protonix) 40 mg DAILYAC PO Last administered on 07/25/16 08:20; Start 07/24/16 at 11:00 Glycopyrrolate (Robinul) 1 mg STK-MED ONCE .ROUTE ; Start 07/24/16 at 11:30; Stop 07/24/16 at 11:31; Status DC Neostigmine Methylsulfate 5 mg STK-MED ONCE .ROUTE ; Start 07/24/16 at 11:30; Stop 07/24/16 at 11:31; Status DC Desflurane (Suprane) 30 ml STK-MED ONCE IH ; Start 07/24/16 at 11:32; Stop at 11:33; Status DC Oxycodone/ Acetaminophen (Percocet 5/325) 1 tab PRN Q4HRS PRN PO PAIN Last administered on 07/24/16 21:50; Start 07/24/16 at 11:45 Oxycodone/ Acetaminophen (Percocet 5/325) 2 tab PRN Q4HRS PRN PO PAIN Last administered on 07/25/16 08:22; Start 07/24/16 at 11:45 Ondansetron HCl (Zofran) 4 mg PRN Q6HRS PRN IV NAUSEA/VOMITING; Start 07/24/16 at 12:00; Stop 07/25/16 at 11:59; Status DC Fentanyl Citrate (Fentanyl 2ml Vial) 25 mcg PRN Q5MIN PRN IV MILD PAIN; Start 07/24/16 at 12:00; Stop 07/25/16 at 11:59; Status DC Fentanyl Citrate (Fentanyl 2ml Vial) 50 mcg PRN Q5MIN PRN IV MODERATE PAIN Last administered on 07/24/16 12:26; Start 07/24/16 at 12:00; Stop 07/25/16 at 11 :59; Status DC Morphine Sulfate 1 mg PRN Q10MIN PRN IV SEVERE PAIN Last administered on 12:32; Start 07/24/16 at 12:00; Stop 07/25/16 at 11:59; Status DC Ringer's Solution 1,000 ml @ 0 mls/hr Q0M IV ; Start 07/24/16 at 11:56; Stop 07/24/16 at 23:55; Status DC Lidocaine HCl 2 ml PRN 1X PRN ID PRIOR TO IV START; Start 07/24/16 at 12:00; Stop 07/25/16 at 11:59; Status DC Hydromorphone HCl (Dilaudid) 0.5 mg PRN Q10MIN PRN IV SEV PAIN, Second choice; Start 07/24/16 at 12:00; Stop 07/25/16 at 11:59; Status DC Prochlorperazine Edisylate (Compazine) 5 mg PACU PRN PRN IV NAUSEA, MRX1; Start 07/24/16 at 12:00; Stop 07/25/16 at 11:59; Status DC Amlodipine Besylate (Norvasc) 5 mg DAILY PO Last administered on 07/25/16 08: 21; Start 07/24/16 at 14:00 Famotidine (Pepcid) 20 mg QHS PO Last administered on 07/24/16 21:51; Start 07/24/16 at 21:00 Metoprolol Succinate (Toprol Xl) 100 mg BID PO Last administered on 07/25/16 08:21; Start 07/24/16 at 15:00 Dutasteride (Avodart) 0.5 mg DAILY PO ; Start 07/25/16 at 09:00; Stop 07/25/16 at 09:00; Status DC Tamsulosin HCl (Flomax) 0.4 mg DAILY PO ; Start 07/25/16 at 09:00; Stop at 09:00; Status DC Dicyclomine HCl (Bentyl) 20 mg QID PO Last administered on 07/25/16 13:35; Start 07/24/16 at 23:15 Losartan Potassium (Cozaar) 100 mg DAILY PO Last administered on 07/25/16 08: 19; Start 07/25/16 at 09:00 Dutasteride (Avodart) 0.5 mg DAILY PO Last administered on 07/25/16 08:20; Start 07/24/16 at 23:15 Tamsulosin HCl (Flomax) 0.4 mg DAILY PO Last administered on 07/25/16 08:19; Start 07/24/16 at 23:15 Active Scripts Active Famotidine 20 Mg Tablet 20 Mg PO BID Reported Dicyclomine Hcl 20 Mg Tablet 1 Tab PO QID Avodart (Dutasteride) 0.5 Mg Capsule 1 Cap PO DAILY Diovan (Valsartan) 160 Mg Tablet 160 Mg PO DAILY Tamsulosin Hcl 0.4 Mg Cap.er.24h 1 Cap PO DAILY Amlodipine Besylate 5 Mg Tablet 5 Mg PO DAILY Multiple Vitamin (Multivitamin With Minerals) 1 Each Tablet 1 Each PO DAILY [Vitamin B 12] DAILY Flaxseed (Flaxseed Oil) 1,000 Mg Capsule 1,000 Mg PO DAILY Toprol Xl (Metoprolol Succinate) 100 Mg Tab.er.24h 100 Mg PO BID Vitals/I & O Vital Sign - Last 24 Hours 07/24/16 07/24/16 07/24/16 07/24/16 13:45 14:00 14:29 14:30 Pulse 84 96 85 89 B/P (MAP) 132/66 (88) 90/22 (44) 138/64 138/64 (88) Pulse Ox 97 94 95 O2 Delivery Nasal Cannula Nasal Cannula Nasal Cannula O2 Flow Rate 2.0 2.0 2.0 07/24/16 07/24/16 07/24/16 07/24/16 15:00 16:00 17:00 19:25 Temp 98.8 98.2 98.8 98.2 Pulse 97 89 93 95 Resp 18 18 B/P (MAP) 134/77 (96) 142/72 (95) 120/59 (79) 104/68 (80) Pulse Ox 98 98 97 97 O2 Delivery Nasal Cannula Nasal Cannula Nasal Cannula Room Air O2 Flow Rate 2.0 2.0 2.0 07/24/16 07/24/16 07/24/16 07/25/16 20:00 21:50 23:25 01:33 Temp 98.3 98.3 Pulse 89 Resp 16 18 17 B/P (MAP) 137/72 (93) Pulse Ox 96 O2 Delivery Room Air Room Air Room Air Room Air 07/25/16 07/25/16 07/25/16 07/25/16 02:00 07:00 07:45 08:19 Temp 99.0 99.0 Pulse 82 82 Resp 16 16 B/P (MAP) 145/79 (101) 145/82 Pulse Ox 95 O2 Delivery Room Air Room Air 07/25/16 07/25/16 07/25/16 07/25/16 08:21 08:21 08:22 09:42 Pulse 82 82 B/P (MAP) 145/79 145/79 Pulse Ox 96 96 O2 Delivery Room Air Room Air O2 Flow Rate 2.0 2.0 07/25/16 11:00 Temp 98.8 98.8 Pulse 80 Resp 16 B/P (MAP) 132/78 (96) Pulse Ox 92 O2 Delivery Room Air Intake and Output 07/24/16 07/24/16 07/25/16 15:00 23:00 07:00 Intake Total 950 ml 240 ml Output Total 5 ml Balance 945 ml 240 ml Problem List Problems Medical Problems: (1) Abdominal pain Status: Acute Assessment Abd pain-with malignacy/carcinomatosis, advance diet with resolution of post-op ileus, cpm JASON KOHURY MD Jul 25, 2016 13:39
[2016-07-25 15:00] VITALS: BP 124/69
--- NOTE | 2016-07-25 16:23 | PDOC ---
PROGRESS NOTES Chief Complaint Chief Complaint Cholecystitis ASSESSMENT AND PLAN: 1. Cholecystitis: s/p surgery with findings of perit carcinomatosis, which was bx.ed. further surgery aborted. 2. Metast CA: unk primary at this time. await bx results. suspected bone mets as well per CT. Dr Painting consulted. 3. HTN: cont home meds 4. Pain control: IV/PO narcotics PRN; start bowel regimen concurrently 5. Dispo: home poss in AM with O/P onc F/U The findings and suspected dx were discussed with pt, and 2 children at length on 07/24. Impression of metastatic CA relayed, which would be incurable, but possibly treatable. Symptomatic treatments such as paracentesis discussed as well. 30 min spent in discussion. All questions answered. prognosis poor. palliative services not available for next 5 days History of Present Illness History of Present Illness s/p ex lap; feels ok. no pain Vitals Vitals Vital Signs Date Time Temp Pulse Resp B/P (MAP) Pulse Ox O2 Delivery O2 Flow Rate FiO2 07/25/16 11:00 98.8 80 16 132/78 (96) 92 Room Air 98.8 07/25/16 09:42 2.0 Physical Exam General: Alert, Oriented X3, Cooperative, No acute distress Heart: Regular rate, No murmurs Lungs: Clear Abdomen: Soft, Other (lap dressings dry) Extremities: No cyanosis, Other (mild clubbing) Skin: No rashes Labs LABS Laboratory Tests Test 07/24/16 16:20 07/24/16 16:47 07/25/16 04:05 Tumor Marker Alpha Fetoprotein 3.8 ng/mL (0.0-8.3) Iron Level 17 ug/dL (65-175) Total Iron Binding Capacity 276 ug/dL (250-450) Iron Saturation 6 % (15-34) Ferritin 452 ng/mL (26-388) Sodium Level 135 mmol/L (136-145) Potassium Level 4.9 mmol/L (3.5-5.1) Chloride Level 103 mmol/L (98-107) Carbon Dioxide Level 21 mmol/L (21-32) Anion Gap 11 (6-14) Blood Urea Nitrogen 20 mg/dL (8-26) Creatinine 1.9 mg/dL (0.7-1.3) Estimated GFR (Cockcroft-Gault) 41.3 Glucose Level 161 mg/dL (70-99) Calcium Level 8.4 mg/dL (8.5-10.1) BYRON HARRISON MD Jul 25, 2016 16:23
[2016-07-25 19:49] VITALS: BP 135/88
[2016-07-25 21:05] VITALS: BP 138/88
[2016-07-25] MEDS: FAMOTIDINE 20 MG TABLET. PO SCH (21:06)
[2016-07-25 23:09] VITALS: BP 125/73
[2016-07-26] MEDS: IV NORMAL SALINE 1000ML BAG 1,000 ML IV SCH ×2 (02:36→13:55)
[2016-07-26 03:00] VITALS: BP 142/74
--- NOTE | 2016-07-26 04:07 | CONS ---
DATE OF CONSULTATION: 07/24/2016 MEDICAL ONCOLOGY CONSULTATION REQUESTING PHYSICIAN: Alexis Fisher MD REASON FOR CONSULTATION: Abdominal carcinomatosis. HISTORY OF PRESENT ILLNESS: The patient is an 80-year-old -[place] gentleman who presented to [facility] Room on 07/23/2016 with complaints of abdominal pain of 4 months' duration and a 16-pound weight loss. The abdominal pain was getting worse and hence he was evaluated by his primary care physician and he was evaluated by his bid manager, Dr. Alcala, who sent the patient to the Emergency Room. He also had nausea, but no vomiting. No constipation. He has also noticed abdominal distention and diarrhea 3-5 stools per day. No hematemesis, melena, or hematochezia. Review of the old records indicated that he has had a colonoscopy by Dr. Owusu in 2006, which revealed sigmoid diverticulosis and internal hemorrhoids. The patient also reports having had an EGD and colonoscopy around 2012 at [facility] and they were all apparently normal. He underwent further evaluation in the ER with ultrasound of the abdomen on 07/23/2016 which revealed diffuse biliary sludge within the gallbladder and evidence of moderate ascites. CT scan of the abdomen and pelvis on 07/23/2016 revealed moderate ascites, small liver, spleen is small in size as well. There is wall thickening of the distal antrum of the stomach, gastritis is a possibility, small radiolucent area from the right iliac bone and L4 concerning for osseous metastatic disease. A 5.1 cm cystic lesion noted in the right kidney. Cystic neoplasm is also a possibility. PAST MEDICAL HISTORY: Hypertension, BPH, right inguinal hernia repair. FAMILY HISTORY: Positive for hypertension. SOCIAL HISTORY: No smoking or alcohol abuse. REVIEW OF SYSTEMS: A 12-point review of system was performed. Pertinent positives are mentioned in the history of present illness. Rest of the system review is negative. PHYSICAL EXAMINATION: GENERAL APPEARANCE: The patient is an 80-year-old -[place] gentleman who is well developed, and in no acute cardiorespiratory distress. VITAL SIGNS: Blood pressure 134/77, temperature 98.8. HEENT: Atraumatic, normocephalic. Eyes: No icterus. NECK: Supple. CHEST: Bilaterally symmetrical. No crepitations or rhonchi heard. HEART: S1, S2 normal. ABDOMEN: Soft postop. There is evidence of abdominal distention. CENTRAL NERVOUS SYSTEM: No focal deficits. LYMPHATICS: No lymphadenopathy. SKIN: No rashes. PSYCHOLOGIC: Mood and affect are appropriate. MUSCULOSKELETAL: No joint effusions. LABORATORY DATA: WBC 5.5, hemoglobin 10.3, platelet count 181, creatinine 2.1, calcium 8.3, sodium 137, potassium 4.7, total bilirubin 0.6, AST 19, ALT 15, alkaline phosphatase 60, total protein 6, albumin 2.8. IMPRESSION AND PLAN: 1. Abdominal carcinomatosis. The patient underwent diagnostic laparoscopy on 07/24/[address] Toby Cotter who noted evidence of carcinomatosis of the abdomen and ascites. Omental biopsies were performed and ascitic fluid was sent for cytology. I will await pathology results. I discussed the operative findings with the patient and family. I also discussed the concern for abdominal carcinomatosis, which is suggestive of stage IV malignancy. I mentioned that we need to await pathology results for histology and confirmation. The patient and family requests aggressive management if this is to be malignant. I did explain to them that abdominal carcinomatosis is not a curable condition and treatments are only palliative. They understand and want to proceed with chemotherapy after path results. 2. Anemia, likely due to malignancy. I will also check iron studies, B12 and folic acid level. 3. Bone lesions noted in the right iliac bone and L4 concerning for osseous metastatic disease. Plan bone scan next week. 4. I will also plan for a staging CT scan of the chest next week. 5. He would also need upper endoscopy and colonoscopy to evaluate for primary lesion. YU JIMENEZ MD DR: LYNN/elizabeth JOB#: [id number] / [id number] DENISSE Flower THOMAS MD MTDD
[2016-07-26] MEDS: PANTOPRAZOLE 40 MG TABLET.DR. PO SCH ×2 (05:46→08:53)
[2016-07-26] MEDS: oxyCODONE/APAP 5/325 1 TAB TABLET PO PRN (05:46)
[2016-07-26] MEDS: ONDANSETRON PF 4 MG/2 ML VIAL. IV PRN (05:53)
[2016-07-26 06:26] LABS: CALCIUM 8.6 mg/dL (8.5-10.1); CREATININE 2.6 mg/dL (0.7-1.3); GFR 28.7; POTASSIUM 4.2 mmol/L (3.5-5.1)
[2016-07-26 07:00] VITALS: BP 167/89
[2016-07-26] MEDS: DICYCLOMINE HCL 10 MG CAPSULE PO SCH ×4 (08:52→20:53)
[2016-07-26] MEDS: LOSARTAN POTASSIUM 50 MG TABLET. PO SCH (08:53)
[2016-07-26] MEDS: SENNOSIDES/DOCUSATE 8.6/50MG TABLET. PO PRN (08:53)
[2016-07-26] MEDS: TAMSULOSIN 0.4 MG CAP.ER.24H. PO SCH (08:53)
[2016-07-26] MEDS: amLODIPine BESYLATE 5 MG TABLET PO SCH (08:54)
[2016-07-26] MEDS: DUTASTERIDE 0.5 MG CAPSULE PO SCH (08:54)
[2016-07-26] MEDS: METOPROLOL SUCC 24HR ER 100 MG TAB.ER.24H. PO SCH ×2 (09:00→20:53)
--- NOTE | 2016-07-26 09:19 | PDOC ---
JOSE MCCOLLUM PASTRYCOOK 07/26/16 0919: SURGICAL PROGRESS NOTE Subjective emesis after some prune juice this AM constipated Vital Signs Vital Signs Date Time Temp Pulse Resp B/P (MAP) Pulse Ox O2 Delivery O2 Flow Rate FiO2 07/26/16 08:54 82 167/89 07/26/16 08:00 98 Room Air 07/26/16 06:46 16 07/26/16 03:00 98.1 98.1 07/25/16 09:42 2.0 I&O Intake and Output 07/26/16 07:00 Intake Total 1942 ml Output Total 550 ml Balance 1392 ml Intake Oral 150 ml IV Total 900 ml Other 892 ml Output Urine Total 550 ml # Voids 2 General: Alert, Oriented X3, Cooperative, No acute distress Abdomen: Soft, Other (lap dressings dry ) Labs Laboratory Tests Test 07/24/16 16:20 07/24/16 16:47 07/25/16 04:05 07/26/16 05:10 Tumor Marker Alpha Fetoprotein 3.8 ng/mL (0.0-8.3) Iron Level 17 ug/dL (65-175) Total Iron Binding Capacity 276 ug/dL (250-450) Iron Saturation 6 % (15-34) Ferritin 452 ng/mL (26-388) Sodium Level 135 mmol/L (136-145) 131 mmol/L (136-145) Potassium Level 4.9 mmol/L (3.5-5.1) 4.2 mmol/L (3.5-5.1) Chloride Level 103 mmol/L (98-107) 101 mmol/L (98-107) Carbon Dioxide Level 21 mmol/L (21-32) 18 mmol/L (21-32) Anion Gap 11 (6-14) 12 (6-14) Blood Urea Nitrogen 20 mg/dL (8-26) 21 mg/dL (8-26) Creatinine 1.9 mg/dL (0.7-1.3) 2.6 mg/dL (0.7-1.3) Estimated GFR (Cockcroft-Gault) 41.3 28.7 Glucose Level 161 mg/dL (70-99) 119 mg/dL (70-99) Calcium Level 8.4 mg/dL (8.5-10.1) 8.6 mg/dL (8.5-10.1) Laboratory Tests Test 07/26/16 05:10 Sodium Level 131 mmol/L (136-145) Potassium Level 4.2 mmol/L (3.5-5.1) Chloride Level 101 mmol/L (98-107) Carbon Dioxide Level 18 mmol/L (21-32) Anion Gap 12 (6-14) Blood Urea Nitrogen 21 mg/dL (8-26) Creatinine 2.6 mg/dL (0.7-1.3) Estimated GFR (Cockcroft-Gault) 28.7 Glucose Level 119 mg/dL (70-99) Calcium Level 8.6 mg/dL (8.5-10.1) Problem List Problems Medical Problems: (1) Abdominal pain Status: Acute Assessment/Plan Carcinomatosis of the abdomen. s/p Diagnostic laparoscopy with omental biopsies. path pending, Oncology following Problems: JASON ANGEL MD 07/27/16 0709: SURGICAL PROGRESS NOTE Assessment/Plan Reviewed, agree with above Problems: JOSE MCCOLLUM APRN Jul 26, 2016 09:19 JASON ANGEL MD Jul 27, 2016 07:09
--- NOTE | 2016-07-26 10:06 | PDOC ---
PROGRESS NOTES Chief Complaint Chief Complaint Cholecystitis ASSESSMENT AND PLAN: 1. Cholecystitis: s/p surgery with findings of perit carcinomatosis, which was bx.ed. further surgery aborted. 2. Metast CA: unk primary at this time. await bx results. suspected bone mets as well per CT. Dr Painting consulted, O/P F/U 3. HTN: cont home meds 4. Pain control: IV/PO narcotics PRN; start bowel regimen concurrently 5. Constipation (vs ileus): with new N/V, place NGT; bowel rest, Dulcolax ME. IVF 6. Ascites: moderate. may need therapeutic tap. 7. Dispo: home with O/P onc F/U when GI issues resolved History of Present Illness History of Present Illness can't eat "too much pressure". no BM since before admit. Vitals Vitals Vital Signs Date Time Temp Pulse Resp B/P (MAP) Pulse Ox O2 Delivery O2 Flow Rate FiO2 07/26/16 08:54 82 167/89 07/26/16 08:00 98 Room Air 07/26/16 06:46 16 07/26/16 03:00 98.1 98.1 07/25/16 09:42 2.0 Physical Exam General: Alert, Oriented X3, Cooperative, No acute distress Heart: Regular rate, No murmurs Lungs: Clear Abdomen: Soft, Other (lap dressings dry ) Extremities: No cyanosis, Other (mild clubbing) Skin: No rashes Labs LABS Laboratory Tests Test 07/26/16 05:10 Sodium Level 131 mmol/L (136-145) Potassium Level 4.2 mmol/L (3.5-5.1) Chloride Level 101 mmol/L (98-107) Carbon Dioxide Level 18 mmol/L (21-32) Anion Gap 12 (6-14) Blood Urea Nitrogen 21 mg/dL (8-26) Creatinine 2.6 mg/dL (0.7-1.3) Estimated GFR (Cockcroft-Gault) 28.7 Glucose Level 119 mg/dL (70-99) Calcium Level 8.6 mg/dL (8.5-10.1) BYRON HARRISON MD Jul 26, 2016 10:06
[2016-07-26] MEDS ORDERED: BISACODYL 10 MG SUPP.RECT. PR PRN ×2 (10:15→14:45)
[2016-07-26] MEDS: POTASSIUM CHLORIDE 30 MEQ in IV 1/2 NORMAL SALINE 1,000 ML IV SCH (10:30)
[2016-07-26 11:00] VITALS: BP 160/79
--- NOTE | 2016-07-26 11:32 | RAD ---
Indication assess nasogastric tube placement. A single view targeted to the lower chest and upper abdomen was obtained. A nasogastric tube has its tip in the fundus of the stomach. The abdominal gas pattern appears normal. IMPRESSION: NG tube in the fundus of the stomach
[2016-07-26] MEDS ORDERED: MORPHINE SULFATE 2 MG/ML DISP.SYRIN. IV PRN (14:45)
[2016-07-26] MEDS: MORPHINE SULFATE 2 MG/ML DISP.SYRIN. IV PRN ×2 (14:54→21:04)
[2016-07-26] MEDS: BISACODYL 10 MG SUPP.RECT. PR PRN (14:54)
[2016-07-26 15:00] VITALS: BP 174/92
[2016-07-26 19:00] VITALS: BP 166/83
[2016-07-26] MEDS ORDERED: PHENOL ORAL SPRAY 177ML BOTTLE. PO PRN ×2 (19:45→20:00)
[2016-07-26] MEDS: FAMOTIDINE 20 MG TABLET. PO SCH (20:53)
[2016-07-26 23:00] VITALS: BP 132/96
[2016-07-27] VITALS (7 sets, daily range): BP systolic 129–182; BP diastolic 72–99
[2016-07-27] MEDS: IV NORMAL SALINE 1000ML BAG 1,000 ML IV SCH ×2 (03:15→14:00)
[2016-07-27] MEDS: hydrALAZINE 20 MG/ML VIAL. IVP PRN ×3 (03:27→17:16)
[2016-07-27] MEDS: MORPHINE SULFATE 2 MG/ML DISP.SYRIN. IV PRN ×2 (04:10→11:04)
[2016-07-27 04:53] LABS: BASO % 0 % (0-3); EOS % 0 % (0-3); HEMATOCRIT 34.9 % (39.0-53.0); LYMPH # 0.5 x10^3/uL (1.0-4.8); LYMPH % 3 % (24-48); MEAN CORPUSCULAR HEMOGLOBIN 29 pg (25-35); MEAN CORPUSCULAR HGB CONC 32 g/dL (31-37); MEAN CORPUSCULAR VOLUME 92 fL (79-100); MONO % 7 % (0-9); NEUT % 90 % (31-73); PLATELET COUNT 182 x10^3/uL (140-400); RED BLOOD COUNT 3.81 x10^6/uL (4.30-5.70); RED CELL DISTRIBUTION WIDTH 13.6 % (11.5-14.5); WHITE BLOOD COUNT 14.8 x10^3/uL (4.0-11.0)
[2016-07-27 05:09] LABS: CALCIUM 8.8 mg/dL (8.5-10.1); CREATININE 3.1 mg/dL (0.7-1.3); GFR 23.5; POTASSIUM 4.8 mmol/L (3.5-5.1)
[2016-07-27] MEDS: POTASSIUM CHLORIDE 30 MEQ in IV 1/2 NORMAL SALINE 1,000 ML IV SCH (05:45)
[2016-07-27 08:47] LABS: PLT ESTIMATE ADEQUATE (ADEQUATE)
[2016-07-27] MEDS: METOPROLOL SUCC 24HR ER 100 MG TAB.ER.24H. PO SCH ×2 (09:00→21:00)
[2016-07-27] MEDS: amLODIPine BESYLATE 5 MG TABLET PO SCH (09:00)
[2016-07-27] MEDS: TAMSULOSIN 0.4 MG CAP.ER.24H. PO SCH (09:00)
[2016-07-27] MEDS: DUTASTERIDE 0.5 MG CAPSULE PO SCH (09:00)
[2016-07-27] MEDS: LOSARTAN POTASSIUM 50 MG TABLET. PO SCH (09:00)
[2016-07-27] MEDS: DICYCLOMINE HCL 10 MG CAPSULE PO SCH ×4 (09:00→21:57)
[2016-07-27 09:23] LABS: FOLATE 6.24 ng/ml (3.2-20.0)
--- NOTE | 2016-07-27 09:25 | PDOC ---
Subjective: Subjective: BM yesterday which helped urinary issues and lower abd discomfort. Daughter wants second opinion re: cancer treatment, wants to see pictures from surgery, wants to know biopsy results, wants to know the plan - "he's just sitting here." Objective: Objective: D/w RN - has NG tube. Vital Signs: Vital Signs Date Time Temp Pulse Resp B/P (MAP) Pulse Ox O2 Delivery O2 Flow Rate FiO2 07/27/16 07:00 98.1 95 20 180/99 (126) 98 Room Air 98.1 07/26/16 14:54 2.0 Labs: Laboratory Tests Test 07/27/16 04:15 White Blood Count 14.8 x10^3/uL Red Blood Count 3.81 x10^6/uL Hemoglobin 11.0 g/dL Hematocrit 34.9 % Mean Corpuscular Volume 92 fL Mean Corpuscular Hemoglobin 29 pg Mean Corpuscular Hemoglobin Concent 32 g/dL Red Cell Distribution Width 13.6 % Platelet Count 182 x10^3/uL Neutrophils (%) (Auto) 90 % Lymphocytes (%) (Auto) 3 % Monocytes (%) (Auto) 7 % Eosinophils (%) (Auto) 0 % Basophils (%) (Auto) 0 % Neutrophils # (Auto) 13.3 x10^3uL Lymphocytes # (Auto) 0.5 x10^3/uL Monocytes # (Auto) 1.1 x10^3/uL Eosinophils # (Auto) 0.0 x10^3/uL Basophils # (Auto) 0.0 x10^3/uL Segmented Neutrophils % 91 % Band Neutrophils % 2 % Lymphocytes % 2 % Monocytes % 5 % Platelet Estimate Adequate Sodium Level 132 mmol/L Potassium Level 4.8 mmol/L Chloride Level 101 mmol/L Carbon Dioxide Level 18 mmol/L Anion Gap 13 Blood Urea Nitrogen 28 mg/dL Creatinine 3.1 mg/dL Estimated GFR (Cockcroft-Gault) 23.5 Glucose Level 125 mg/dL Calcium Level 8.8 mg/dL PE: GEN: NAD, laying in bed LUNGS: clear HEART: S1S2 ABD: some lower discomfort, NG NEURO/PSYCH: A & O 3 A/P: Abdominal carcinomatosis and ascites -s/p diagnostic lap 07/24/16, seems post-op ileus now w/ NG -oncology has seen, family wants to be aggressive w/ treatment, plans for CT chest and bone scan -AFP WNL, CEA and CA19-9 pending, path pending ASAD, leukocytosis -- Reviewed Dr. Painting's note, suggests EGD/colonoscopy for further evaluation. Will review w/ Dr. eRza. Not sure family understanding diagnosis. DENISSE HUERTA Jul 27, 2016 09:25
--- NOTE | 2016-07-27 10:11 | PDOC ---
SURGICAL PROGRESS NOTE Subjective Doing ok, feeling full. Vital Signs Vital Signs Date Time Temp Pulse Resp B/P (MAP) Pulse Ox O2 Delivery O2 Flow Rate FiO2 07/27/16 09:34 95 180/99 07/27/16 07:00 98.1 20 98 Room Air 98.1 07/26/16 14:54 2.0 I&O Intake and Output 07/27/16 07:00 Intake Total 1220 ml Output Total 1350 ml Balance -130 ml Intake Oral 500 ml Other 720 ml Output Urine Total 1100 ml Gastric Drainage Total 250 ml General: Alert, Oriented X3, Cooperative, mild distress Abdomen: Normal bowel sounds, Soft, Other (diffusely distended, mild incisional tenderness, wounds c/d/i) Labs Laboratory Tests Test 07/26/16 05:10 07/27/16 04:15 Sodium Level 131 mmol/L (136-145) 132 mmol/L (136-145) Potassium Level 4.2 mmol/L (3.5-5.1) 4.8 mmol/L (3.5-5.1) Chloride Level 101 mmol/L (98-107) 101 mmol/L (98-107) Carbon Dioxide Level 18 mmol/L (21-32) 18 mmol/L (21-32) Anion Gap 12 (6-14) 13 (6-14) Blood Urea Nitrogen 21 mg/dL (8-26) 28 mg/dL (8-26) Creatinine 2.6 mg/dL (0.7-1.3) 3.1 mg/dL (0.7-1.3) Estimated GFR (Cockcroft-Gault) 28.7 23.5 Glucose Level 119 mg/dL (70-99) 125 mg/dL (70-99) Calcium Level 8.6 mg/dL (8.5-10.1) 8.8 mg/dL (8.5-10.1) White Blood Count 14.8 x10^3/uL (4.0-11.0) Red Blood Count 3.81 x10^6/uL (4.30-5.70) Hemoglobin 11.0 g/dL (13.0-17.5) Hematocrit 34.9 % (39.0-53.0) Mean Corpuscular Volume 92 fL (79-100) Mean Corpuscular Hemoglobin 29 pg (25-35) Mean Corpuscular Hemoglobin Concent 32 g/dL (31-37) Red Cell Distribution Width 13.6 % (11.5-14.5) Platelet Count 182 x10^3/uL (140-400) Neutrophils (%) (Auto) 90 % (31-73) Lymphocytes (%) (Auto) 3 % (24-48) Monocytes (%) (Auto) 7 % (0-9) Eosinophils (%) (Auto) 0 % (0-3) Basophils (%) (Auto) 0 % (0-3) Neutrophils # (Auto) 13.3 x10^3uL (1.8-7.7) Lymphocytes # (Auto) 0.5 x10^3/uL (1.0-4.8) Monocytes # (Auto) 1.1 x10^3/uL (0.0-1.1) Eosinophils # (Auto) 0.0 x10^3/uL (0.0-0.7) Basophils # (Auto) 0.0 x10^3/uL (0.0-0.2) Segmented Neutrophils % 91 % (35-66) Band Neutrophils % 2 % (0-9) Lymphocytes % 2 % (24-48) Monocytes % 5 % (0-10) Platelet Estimate Adequate (ADEQUATE) Laboratory Tests Test 07/27/16 04:15 White Blood Count 14.8 x10^3/uL (4.0-11.0) Red Blood Count 3.81 x10^6/uL (4.30-5.70) Hemoglobin 11.0 g/dL (13.0-17.5) Hematocrit 34.9 % (39.0-53.0) Mean Corpuscular Volume 92 fL (79-100) Mean Corpuscular Hemoglobin 29 pg (25-35) Mean Corpuscular Hemoglobin Concent 32 g/dL (31-37) Red Cell Distribution Width 13.6 % (11.5-14.5) Platelet Count 182 x10^3/uL (140-400) Neutrophils (%) (Auto) 90 % (31-73) Lymphocytes (%) (Auto) 3 % (24-48) Monocytes (%) (Auto) 7 % (0-9) Eosinophils (%) (Auto) 0 % (0-3) Basophils (%) (Auto) 0 % (0-3) Neutrophils # (Auto) 13.3 x10^3uL (1.8-7.7) Lymphocytes # (Auto) 0.5 x10^3/uL (1.0-4.8) Monocytes # (Auto) 1.1 x10^3/uL (0.0-1.1) Eosinophils # (Auto) 0.0 x10^3/uL (0.0-0.7) Basophils # (Auto) 0.0 x10^3/uL (0.0-0.2) Segmented Neutrophils % 91 % (35-66) Band Neutrophils % 2 % (0-9) Lymphocytes % 2 % (24-48) Monocytes % 5 % (0-10) Platelet Estimate Adequate (ADEQUATE) Sodium Level 132 mmol/L (136-145) Potassium Level 4.8 mmol/L (3.5-5.1) Chloride Level 101 mmol/L (98-107) Carbon Dioxide Level 18 mmol/L (21-32) Anion Gap 13 (6-14) Blood Urea Nitrogen 28 mg/dL (8-26) Creatinine 3.1 mg/dL (0.7-1.3) Estimated GFR (Cockcroft-Gault) 23.5 Glucose Level 125 mg/dL (70-99) Calcium Level 8.8 mg/dL (8.5-10.1) Problem List Problems Medical Problems: (1) Abdominal pain Status: Acute Assessment/Plan S/P Dx L/S found to have carcinomatosis Path pending No surgical indications. Problems: ANDREAS WATTS MD Jul 27, 2016 10:11
[2016-07-27] MEDS ORDERED: IV NORMAL SALINE 1000ML BAG 1,000 ML IV SCH (10:30)
--- NOTE | 2016-07-27 11:45 | RAD ---
CT scan of the chest without contrast 07/27/2016 Clinical History: Abdominal carcinomatosis. Technique: Unenhanced, contiguous, 5 mm axial sections were obtained through the chest and upper abdomen. One or more of the following individualized dose reduction techniques were utilized for this study: 1. Automated exposure control. 2. Adjustment of the mA and/or kV according to patient size. 3. Use of iterative reconstruction technique. Findings: Comparison is made to a CT scan of the abdomen and pelvis dated 07/23/2016. Mild scattered atherosclerotic plaque formation is seen involving the thoracic aorta and its branches. The thoracic aorta is tortuous but tapers normally. The heart is mildly enlarged. There is minimal pericardial effusion. There are very small to minimal bilateral pleural effusions, right greater than left. Small calcified mediastinal and left hilar lymph nodes are seen. No hilar, mediastinal or axillary lymphadenopathy is definitely seen. Right lower lobe atelectasis and/or infiltrate is seen. Dependent subsegmental atelectasis seen on the left lower lobe. No pulmonary mass is noted. No pneumothorax or pleural effusion is seen. Images through the upper abdomen demonstrate moderate to large amount of ascites. Increased soft tissue density is seen within the left aspect of the omentum consistent with patient's history of carcinomatosis. Small collections of air are seen within the peritoneal cavity which are presumably related to a recent procedure. Subcutaneous emphysema is seen in the anterior abdominal wall. Degenerative changes are seen throughout the thoracic spine. There has been interval development of mild to moderate right hydronephrosis. Impression: There is no definite CT evidence of metastatic disease involving the chest.
--- NOTE | 2016-07-27 12:19 | PDOC ---
PROGRESS NOTES Subjective Subjective c/c - f/u of Abdominal carcinomatosis ROS - no n/v Objective Objective Vital Signs Date Time Temp Pulse Resp B/P (MAP) Pulse Ox O2 Delivery O2 Flow Rate FiO2 07/27/16 11:04 98 Room Air 07/27/16 11:00 98.2 97 20 156/81 (106) 98.2 07/26/16 14:54 2.0 Intake and Output 07/27/16 07:00 Intake Total 1220 ml Output Total 1350 ml Balance -130 ml Intake Oral 500 ml Other 720 ml Output Urine Total 1100 ml Gastric Drainage Total 250 ml Physical Exam Heart: Normal S1, Normal S2 General: Alert, Oriented X3 Lungs: Clear to auscultation Assessment Assessment Problems Medical Problems: (1) Abdominal pain Status: Acute IMPRESSION AND PLAN: 1. Abdominal carcinomatosis. The patient underwent diagnostic laparoscopy on 07/24/[address] Toby Cotter who noted evidence of carcinomatosis of the abdomen and ascites. Omental biopsies were performed and ascitic fluid was sent for cytology. I will await pathology results. I discussed the operative findings with the patient and family. I also discussed the concern for abdominal carcinomatosis, which is suggestive of stage IV malignancy. I mentioned that we need to await pathology results for histology and confirmation. The patient and family requests aggressive management if this is to be malignant. I did explain to them that abdominal carcinomatosis is not a curable condition and treatments are only palliative. They understand and want to proceed with chemotherapy after path results. 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 Appreciate GI follow-up and w/u for primary. He would need upper endoscopy and colonoscopy to evaluate for primary lesion. I d/w pt and family in detail. I d/w RN. AFP normal at 3.8 on 07/24/16. 2. Anemia, likely due to malignancy. Iron saturation is low, B12 and folic acid level are normal. 3. Bone lesions noted in the right iliac bone and L4 concerning for osseous metastatic disease. Plan bone scan. 4. Plan for a staging CT scan of the chest. Comment Review of Relevant I have reviewed the following items bishnu (where applicable) has been applied. Labs Laboratory Tests Test 07/26/16 05:10 07/27/16 04:15 Sodium Level 131 mmol/L (136-145) 132 mmol/L (136-145) Potassium Level 4.2 mmol/L (3.5-5.1) 4.8 mmol/L (3.5-5.1) Chloride Level 101 mmol/L (98-107) 101 mmol/L (98-107) Carbon Dioxide Level 18 mmol/L (21-32) 18 mmol/L (21-32) Anion Gap 12 (6-14) 13 (6-14) Blood Urea Nitrogen 21 mg/dL (8-26) 28 mg/dL (8-26) Creatinine 2.6 mg/dL (0.7-1.3) 3.1 mg/dL (0.7-1.3) Estimated GFR (Cockcroft-Gault) 28.7 23.5 Glucose Level 119 mg/dL (70-99) 125 mg/dL (70-99) Calcium Level 8.6 mg/dL (8.5-10.1) 8.8 mg/dL (8.5-10.1) White Blood Count 14.8 x10^3/uL (4.0-11.0) Red Blood Count 3.81 x10^6/uL (4.30-5.70) Hemoglobin 11.0 g/dL (13.0-17.5) Hematocrit 34.9 % (39.0-53.0) Mean Corpuscular Volume 92 fL (79-100) Mean Corpuscular Hemoglobin 29 pg (25-35) Mean Corpuscular Hemoglobin Concent 32 g/dL (31-37) Red Cell Distribution Width 13.6 % (11.5-14.5) Platelet Count 182 x10^3/uL (140-400) Neutrophils (%) (Auto) 90 % (31-73) Lymphocytes (%) (Auto) 3 % (24-48) Monocytes (%) (Auto) 7 % (0-9) Eosinophils (%) (Auto) 0 % (0-3) Basophils (%) (Auto) 0 % (0-3) Neutrophils # (Auto) 13.3 x10^3uL (1.8-7.7) Lymphocytes # (Auto) 0.5 x10^3/uL (1.0-4.8) Monocytes # (Auto) 1.1 x10^3/uL (0.0-1.1) Eosinophils # (Auto) 0.0 x10^3/uL (0.0-0.7) Basophils # (Auto) 0.0 x10^3/uL (0.0-0.2) Segmented Neutrophils % 91 % (35-66) Band Neutrophils % 2 % (0-9) Lymphocytes % 2 % (24-48) Monocytes % 5 % (0-10) Platelet Estimate Adequate (ADEQUATE) Laboratory Tests Test 07/27/16 04:15 White Blood Count 14.8 x10^3/uL (4.0-11.0) Red Blood Count 3.81 x10^6/uL (4.30-5.70) Hemoglobin 11.0 g/dL (13.0-17.5) Hematocrit 34.9 % (39.0-53.0) Mean Corpuscular Volume 92 fL (79-100) Mean Corpuscular Hemoglobin 29 pg (25-35) Mean Corpuscular Hemoglobin Concent 32 g/dL (31-37) Red Cell Distribution Width 13.6 % (11.5-14.5) Platelet Count 182 x10^3/uL (140-400) Neutrophils (%) (Auto) 90 % (31-73) Lymphocytes (%) (Auto) 3 % (24-48) Monocytes (%) (Auto) 7 % (0-9) Eosinophils (%) (Auto) 0 % (0-3) Basophils (%) (Auto) 0 % (0-3) Neutrophils # (Auto) 13.3 x10^3uL (1.8-7.7) Lymphocytes # (Auto) 0.5 x10^3/uL (1.0-4.8) Monocytes # (Auto) 1.1 x10^3/uL (0.0-1.1) Eosinophils # (Auto) 0.0 x10^3/uL (0.0-0.7) Basophils # (Auto) 0.0 x10^3/uL (0.0-0.2) Segmented Neutrophils % 91 % (35-66) Band Neutrophils % 2 % (0-9) Lymphocytes % 2 % (24-48) Monocytes % 5 % (0-10) Platelet Estimate Adequate (ADEQUATE) Sodium Level 132 mmol/L (136-145) Potassium Level 4.8 mmol/L (3.5-5.1) Chloride Level 101 mmol/L (98-107) Carbon Dioxide Level 18 mmol/L (21-32) Anion Gap 13 (6-14) Blood Urea Nitrogen 28 mg/dL (8-26) Creatinine 3.1 mg/dL (0.7-1.3) Estimated GFR (Cockcroft-Gault) 23.5 Glucose Level 125 mg/dL (70-99) Calcium Level 8.8 mg/dL (8.5-10.1) Microbiology 07/23/16 Urine Culture - Final, Complete 07/23/16 Urine Culture Result 1 (TRUMAN) - Final, Complete Medications Current Medications Fentanyl Citrate (Fentanyl 2ml Vial) 25 mcg PRN Q15MIN PRN IV PAIN GREATER THAN 3/10 Last administered on 07/23/16 19:35; Start 07/23/16 at 16:45; Stop 07/24 at 16:44; Status DC Ondansetron HCl (Zofran) 4 mg PRN Q8HRS PRN IV NAUSEA/VOMITING; Start 07/23/16 at 18:30; Stop 07/24/16 at 18:29; Status DC Fentanyl Citrate (Fentanyl 2ml Vial) 25 mcg PRN Q2HR PRN IV PAIN; Start at 18:30; Stop 07/23/16 at 19:32; Status DC Sodium Chloride 1,000 ml @ 75 mls/hr [id number] IV Last administered on 02:36; Start 07/23/16 at 19:15; Stop 07/27/16 at 10:10; Status DC Acetaminophen (Tylenol) 325 mg PRN Q6HRS PRN PO MILD PAIN / TEMP; Start at 19:15 Hydralazine HCl (Apresoline) 10 mg PRN Q4HRS PRN IVP ELEVATED BP, SEE COMMENTS Last administered on 07/27/16 09:34; Start 07/23/16 at 19:15 Ondansetron HCl (Zofran) 4 mg PRN Q8HRS PRN IV NAUSEA/VOMITING Last administered on 07/26/16 05:53; Start 07/23/16 at 19:15 Albuterol Sulfate (Ventolin Neb Soln) 2.5 mg PRN Q4HRS PRN NEB SHORTNESS OF BREATH; Start 07/23/16 at 19:15 Morphine Sulfate 2 mg PRN Q2HR PRN IV PAIN Last administered on 07/25/16 01:33 ; Start 07/23/16 at 19:30; Stop 07/25/16 at 16:25; Status DC Iohexol (Omnipaque 240 Mg/ml) 50 ml 1X ONCE PO Last administered on 07/23/16 19:56; Start 07/23/16 at 19:45; Stop 07/23/16 at 19:46; Status DC Info (Do NOT chart on this entry -- for MONITORING) 1 each PRN DAILY PRN MC SEE COMMENTS; Start 07/23/16 at 19:45; Stop 07/25/16 at 19:44; Status DC Cellulose 1 each STK-MED ONCE .ROUTE ; Start 07/24/16 at 08:11; Stop 07/24/16 at 08:12; Status DC Iohexol (Omnipaque 300 Mg/ml) 50 ml STK-MED ONCE .ROUTE ; Start 07/24/16 at 08:11 ; Stop 07/24/16 at 08:12; Status DC Bupivacaine HCl/ Epinephrine Bitart (Sensorcaine-Epi 0.25%-1:608512 Mpf) 30 ml STK-MED ONCE .ROUTE Last administered on 07/24/16 11:10; Start 07/24/16 at 08:11 ; Stop 07/24/16 at 08:12; Status DC Cefazolin Sodium/ Dextrose 50 ml @ As Directed STK-MED ONCE IV ; Start 07/24/16 at 09:31; Stop 07/24/16 at 09:32; Status DC Famotidine (Pepcid) 20 mg STK-MED ONCE .ROUTE ; Start 07/24/16 at 10:35; Stop 07/24/16 at 10:36; Status DC Ondansetron HCl (Zofran) 4 mg STK-MED ONCE .ROUTE ; Start 07/24/16 at 10:35; Stop 07/24/16 at 10:36; Status DC Propofol 20 ml @ As Directed STK-MED ONCE IV ; Start 07/24/16 at 10:35; Stop 07/24 at 10:36; Status DC Lidocaine HCl (Lidocaine Pf 2% Vial) 5 ml STK-MED ONCE .ROUTE ; Start 07/24/16 at 10:35; Stop 07/24/16 at 10:36; Status DC Fentanyl Citrate (Fentanyl 2ml Vial) 100 mcg STK-MED ONCE .ROUTE ; Start at 10:35; Stop 07/24/16 at 10:36; Status DC Rocuronium [place] (Zemuron) 50 mg STK-MED ONCE .ROUTE ; Start 07/24/16 at 10:35 ; Stop 07/24/16 at 10:36; Status DC Pantoprazole Sodium (Protonix) 40 mg DAILYAC PO Last administered on 07/26/16 08:53; Start 07/24/16 at 11:00 Glycopyrrolate (Robinul) 1 mg STK-MED ONCE .ROUTE ; Start 07/24/16 at 11:30; Stop 07/24/16 at 11:31; Status DC Neostigmine Methylsulfate 5 mg STK-MED ONCE .ROUTE ; Start 07/24/16 at 11:30; Stop 07/24/16 at 11:31; Status DC Desflurane (Suprane) 30 ml STK-MED ONCE IH ; Start 07/24/16 at 11:32; Stop at 11:33; Status DC Oxycodone/ Acetaminophen (Percocet 5/325) 1 tab PRN Q4HRS PRN PO PAIN Last administered on 07/24/16 21:50; Start 07/24/16 at 11:45; Stop 07/26/16 at 10:07; Status DC Oxycodone/ Acetaminophen (Percocet 5/325) 2 tab PRN Q4HRS PRN PO PAIN Last administered on 07/26/16 05:46; Start 07/24/16 at 11:45; Stop 07/26/16 at 10:07 ; Status DC Ondansetron HCl (Zofran) 4 mg PRN Q6HRS PRN IV NAUSEA/VOMITING; Start 07/24/16 at 12:00; Stop 07/25/16 at 11:59; Status DC Fentanyl Citrate (Fentanyl 2ml Vial) 25 mcg PRN Q5MIN PRN IV MILD PAIN; Start 07/24/16 at 12:00; Stop 07/25/16 at 11:59; Status DC Fentanyl Citrate (Fentanyl 2ml Vial) 50 mcg PRN Q5MIN PRN IV MODERATE PAIN Last administered on 07/24/16 12:26; Start 07/24/16 at 12:00; Stop 07/25/16 at 11 :59; Status DC Morphine Sulfate 1 mg PRN Q10MIN PRN IV SEVERE PAIN Last administered on 12:32; Start 07/24/16 at 12:00; Stop 07/25/16 at 11:59; Status DC Ringer's Solution 1,000 ml @ 0 mls/hr Q0M IV ; Start 07/24/16 at 11:56; Stop 07/24/16 at 23:55; Status DC Lidocaine HCl 2 ml PRN 1X PRN ID PRIOR TO IV START; Start 07/24/16 at 12:00; Stop 07/25/16 at 11:59; Status DC Hydromorphone HCl (Dilaudid) 0.5 mg PRN Q10MIN PRN IV SEV PAIN, Second choice; Start 07/24/16 at 12:00; Stop 07/25/16 at 11:59; Status DC Prochlorperazine Edisylate (Compazine) 5 mg PACU PRN PRN IV NAUSEA, MRX1; Start 07/24/16 at 12:00; Stop 07/25/16 at 11:59; Status DC Amlodipine Besylate (Norvasc) 5 mg DAILY PO Last administered on 07/26/16 08: 54; Start 07/24/16 at 14:00 Famotidine (Pepcid) 20 mg QHS PO Last administered on 07/25/16 21:06; Start at 21:00 Metoprolol Succinate (Toprol Xl) 100 mg BID PO Last administered on 07/25/16 21:07; Start 07/24/16 at 15:00 Dutasteride (Avodart) 0.5 mg DAILY PO ; Start 07/25/16 at 09:00; Stop 07/25/16 at 09:00; Status DC Tamsulosin HCl (Flomax) 0.4 mg DAILY PO ; Start 07/25/16 at 09:00; Stop at 09:00; Status DC Dicyclomine HCl (Bentyl) 20 mg QID PO Last administered on 07/26/16 08:52; Start 07/24/16 at 23:15 Losartan Potassium (Cozaar) 100 mg DAILY PO Last administered on 07/26/16 08: 53; Start 07/25/16 at 09:00 Dutasteride (Avodart) 0.5 mg DAILY PO Last administered on 07/26/16 08:54; Start 07/24/16 at 23:15 Tamsulosin HCl (Flomax) 0.4 mg DAILY PO Last administered on 07/26/16 08:53; Start 07/24/16 at 23:15 Senna/Docusate Sodium (Senna Plus) 2 tab PRN BID PRN PO CONSTIPATION Last administered on 07/26/16 08:53; Start 07/26/16 at 08:45 Bisacodyl (Dulcolax Supp) 10 mg PRN DAILY PRN MD CONSTIPATION Last administered on 07/26/16 14:54; Start 07/26/16 at 10:15 Potassium Chloride 30 meq/ Sodium Chloride 1,015 ml @ 75 mls/hr [id number] IV Last administered on 07/27/16 05:45; Start 07/26/16 at 10:30; Stop 07/27/16 at 10:10; Status DC Bisacodyl (Dulcolax Supp) 10 mg PRN DAILY PRN MD CONSTIPATION; Start 07/26/16 at 10:15; Status Cancel Morphine Sulfate 1 mg PRN Q2HR PRN IV PAIN; Start 07/26/16 at 14:45 Bisacodyl (Dulcolax Supp) 10 mg PRN DAILY PRN MD CONSTIPATION; Start 07/26/16 at 14:45; Status Cancel Morphine Sulfate 2 mg PRN Q2HR PRN IV PAIN Last administered on 07/27/16 11:04 ; Start 07/26/16 at 15:00 Throat Lozenges (Chloraseptic) 1 spray PRN Q2HR PRN PO SORE THROAT; Start 07/26 at 19:45; Status UNV Throat Lozenges (Chloraseptic) 1 spray PRN Q2HR PRN PO SORE THROAT Last administered on 07/26/16 21:04; Start 07/26/16 at 20:00 Sodium Chloride 1,000 ml @ 100 mls/hr Q10H IV ; Start 07/27/16 at 10:30 Active Scripts Active Famotidine 20 Mg Tablet 20 Mg PO BID Reported Dicyclomine Hcl 20 Mg Tablet 1 Tab PO QID Avodart (Dutasteride) 0.5 Mg Capsule 1 Cap PO DAILY Diovan (Valsartan) 160 Mg Tablet 160 Mg PO DAILY Tamsulosin Hcl 0.4 Mg Cap.er.24h 1 Cap PO DAILY Amlodipine Besylate 5 Mg Tablet 5 Mg PO DAILY Multiple Vitamin (Multivitamin With Minerals) 1 Each Tablet 1 Each PO DAILY [Vitamin B 12] DAILY Flaxseed (Flaxseed Oil) 1,000 Mg Capsule 1,000 Mg PO DAILY Toprol Xl (Metoprolol Succinate) 100 Mg Tab.er.24h 100 Mg PO BID Vitals/I & O Vital Sign - Last 24 Hours 07/26/16 07/26/16 07/26/16 07/26/16 14:54 15:00 15:30 19:00 Temp 98.4 98.7 98.4 98.7 Pulse 95 73 Resp 18 18 B/P (MAP) 174/92 (119) 166/83 (110) Pulse Ox 96 97 96 98 O2 Delivery Room Air Room Air Room Air O2 Flow Rate 2.0 07/26/16 07/26/16 07/26/16 07/27/16 20:00 21:04 23:00 03:24 Temp 98.5 98.5 98.5 98.5 Pulse 72 89 Resp 16 18 18 B/P (MAP) 132/96 (108) 182/94 (123) Pulse Ox 96 96 O2 Delivery Room Air Room Air Room Air Room Air 07/27/16 07/27/16 07/27/16 07/27/16 03:27 04:10 04:40 05:05 Resp 16 16 B/P (MAP) 184/92 155/72 (99) O2 Delivery Room Air Room Air 07/27/16 07/27/16 07/27/16 07/27/16 07:00 09:34 11:00 11:04 Temp 98.1 98.2 98.1 98.2 Pulse 95 95 97 Resp 20 20 B/P (MAP) 180/99 (126) 180/99 156/81 (106) Pulse Ox 98 99 98 O2 Delivery Room Air Room Air Room Air Intake and Output 07/26/16 07/26/16 07/27/16 15:00 23:00 07:00 Intake Total 500 ml 720 ml Output Total 750 ml 600 ml Balance -250 ml 120 ml YU JIMENEZ MD Jul 27, 2016 12:19
--- NOTE | 2016-07-27 14:00 | PDOC ---
PROGRESS NOTES Chief Complaint Chief Complaint Cholecystitis ASSESSMENT AND PLAN: 1. Cholecystitis: s/p surgery with findings of perit carcinomatosis, which was bx.ed. further surgery aborted. 2. Metast CA: unk primary at this time. await bx results. suspected bone mets as well per CT. Dr Painting consulted, O/P F/U 3. HTN: cont home meds 4. ARMANDO, vasomotor 5. Constipation (vs ileus), resolved. 6. Ascites: 2/2 malignancy talked to sx, and explained to family for 10min, will get PAT consult, chest CT and bone scan as per Onco may need EGD/COLOnoscopy as per GI. add NS 100cc/h for ARMANDO clear liquid diet History of Present Illness History of Present Illness can't eat "too much pressure". BM today Vitals Vitals Vital Signs Date Time Temp Pulse Resp B/P (MAP) Pulse Ox O2 Delivery O2 Flow Rate FiO2 07/27/16 11:30 98 Room Air 07/27/16 11:00 98.2 97 20 156/81 (106) 98.2 07/26/16 14:54 2.0 Physical Exam General: Alert, Oriented X3 Heart: Normal S1, Normal S2 Lungs: Clear Abdomen: Normal bowel sounds, Soft, Other (diffusely distended, mild incisional tenderness, wounds c/d/i) Extremities: No cyanosis, Other (mild clubbing) Skin: No rashes Labs LABS Laboratory Tests Test 07/27/16 04:15 White Blood Count 14.8 x10^3/uL (4.0-11.0) Red Blood Count 3.81 x10^6/uL (4.30-5.70) Hemoglobin 11.0 g/dL (13.0-17.5) Hematocrit 34.9 % (39.0-53.0) Mean Corpuscular Volume 92 fL (79-100) Mean Corpuscular Hemoglobin 29 pg (25-35) Mean Corpuscular Hemoglobin Concent 32 g/dL (31-37) Red Cell Distribution Width 13.6 % (11.5-14.5) Platelet Count 182 x10^3/uL (140-400) Neutrophils (%) (Auto) 90 % (31-73) Lymphocytes (%) (Auto) 3 % (24-48) Monocytes (%) (Auto) 7 % (0-9) Eosinophils (%) (Auto) 0 % (0-3) Basophils (%) (Auto) 0 % (0-3) Neutrophils # (Auto) 13.3 x10^3uL (1.8-7.7) Lymphocytes # (Auto) 0.5 x10^3/uL (1.0-4.8) Monocytes # (Auto) 1.1 x10^3/uL (0.0-1.1) Eosinophils # (Auto) 0.0 x10^3/uL (0.0-0.7) Basophils # (Auto) 0.0 x10^3/uL (0.0-0.2) Segmented Neutrophils % 91 % (35-66) Band Neutrophils % 2 % (0-9) Lymphocytes % 2 % (24-48) Monocytes % 5 % (0-10) Platelet Estimate Adequate (ADEQUATE) Sodium Level 132 mmol/L (136-145) Potassium Level 4.8 mmol/L (3.5-5.1) Chloride Level 101 mmol/L (98-107) Carbon Dioxide Level 18 mmol/L (21-32) Anion Gap 13 (6-14) Blood Urea Nitrogen 28 mg/dL (8-26) Creatinine 3.1 mg/dL (0.7-1.3) Estimated GFR (Cockcroft-Gault) 23.5 Glucose Level 125 mg/dL (70-99) Calcium Level 8.8 mg/dL (8.5-10.1) Review of Systems Review of Systems no fever, chills, sob or chest pain Assessment and Plan Assessmemt and Plan Problems Medical Problems: (1) Abdominal pain Status: Acute Problems: Comment Review of Relevant I have reviewed the following items bishnu (where applicable) has been applied. Labs Laboratory Tests Test 07/26/16 05:10 07/27/16 04:15 Sodium Level 131 mmol/L (136-145) 132 mmol/L (136-145) Potassium Level 4.2 mmol/L (3.5-5.1) 4.8 mmol/L (3.5-5.1) Chloride Level 101 mmol/L (98-107) 101 mmol/L (98-107) Carbon Dioxide Level 18 mmol/L (21-32) 18 mmol/L (21-32) Anion Gap 12 (6-14) 13 (6-14) Blood Urea Nitrogen 21 mg/dL (8-26) 28 mg/dL (8-26) Creatinine 2.6 mg/dL (0.7-1.3) 3.1 mg/dL (0.7-1.3) Estimated GFR (Cockcroft-Gault) 28.7 23.5 Glucose Level 119 mg/dL (70-99) 125 mg/dL (70-99) Calcium Level 8.6 mg/dL (8.5-10.1) 8.8 mg/dL (8.5-10.1) White Blood Count 14.8 x10^3/uL (4.0-11.0) Red Blood Count 3.81 x10^6/uL (4.30-5.70) Hemoglobin 11.0 g/dL (13.0-17.5) Hematocrit 34.9 % (39.0-53.0) Mean Corpuscular Volume 92 fL (79-100) Mean Corpuscular Hemoglobin 29 pg (25-35) Mean Corpuscular Hemoglobin Concent 32 g/dL (31-37) Red Cell Distribution Width 13.6 % (11.5-14.5) Platelet Count 182 x10^3/uL (140-400) Neutrophils (%) (Auto) 90 % (31-73) Lymphocytes (%) (Auto) 3 % (24-48) Monocytes (%) (Auto) 7 % (0-9) Eosinophils (%) (Auto) 0 % (0-3) Basophils (%) (Auto) 0 % (0-3) Neutrophils # (Auto) 13.3 x10^3uL (1.8-7.7) Lymphocytes # (Auto) 0.5 x10^3/uL (1.0-4.8) Monocytes # (Auto) 1.1 x10^3/uL (0.0-1.1) Eosinophils # (Auto) 0.0 x10^3/uL (0.0-0.7) Basophils # (Auto) 0.0 x10^3/uL (0.0-0.2) Segmented Neutrophils % 91 % (35-66) Band Neutrophils % 2 % (0-9) Lymphocytes % 2 % (24-48) Monocytes % 5 % (0-10) Platelet Estimate Adequate (ADEQUATE) Laboratory Tests Test 07/27/16 04:15 White Blood Count 14.8 x10^3/uL (4.0-11.0) Red Blood Count 3.81 x10^6/uL (4.30-5.70) Hemoglobin 11.0 g/dL (13.0-17.5) Hematocrit 34.9 % (39.0-53.0) Mean Corpuscular Volume 92 fL (79-100) Mean Corpuscular Hemoglobin 29 pg (25-35) Mean Corpuscular Hemoglobin Concent 32 g/dL (31-37) Red Cell Distribution Width 13.6 % (11.5-14.5) Platelet Count 182 x10^3/uL (140-400) Neutrophils (%) (Auto) 90 % (31-73) Lymphocytes (%) (Auto) 3 % (24-48) Monocytes (%) (Auto) 7 % (0-9) Eosinophils (%) (Auto) 0 % (0-3) Basophils (%) (Auto) 0 % (0-3) Neutrophils # (Auto) 13.3 x10^3uL (1.8-7.7) Lymphocytes # (Auto) 0.5 x10^3/uL (1.0-4.8) Monocytes # (Auto) 1.1 x10^3/uL (0.0-1.1) Eosinophils # (Auto) 0.0 x10^3/uL (0.0-0.7) Basophils # (Auto) 0.0 x10^3/uL (0.0-0.2) Segmented Neutrophils % 91 % (35-66) Band Neutrophils % 2 % (0-9) Lymphocytes % 2 % (24-48) Monocytes % 5 % (0-10) Platelet Estimate Adequate (ADEQUATE) Sodium Level 132 mmol/L (136-145) Potassium Level 4.8 mmol/L (3.5-5.1) Chloride Level 101 mmol/L (98-107) Carbon Dioxide Level 18 mmol/L (21-32) Anion Gap 13 (6-14) Blood Urea Nitrogen 28 mg/dL (8-26) Creatinine 3.1 mg/dL (0.7-1.3) Estimated GFR (Cockcroft-Gault) 23.5 Glucose Level 125 mg/dL (70-99) Calcium Level 8.8 mg/dL (8.5-10.1) Microbiology 07/23/16 Urine Culture - Final, Complete 07/23/16 Urine Culture Result 1 (TRUMAN) - Final, Complete Medications Current Medications Fentanyl Citrate (Fentanyl 2ml Vial) 25 mcg PRN Q15MIN PRN IV PAIN GREATER THAN 3/10 Last administered on 07/23/16 19:35; Start 07/23/16 at 16:45; Stop 07/24 at 16:44; Status DC Ondansetron HCl (Zofran) 4 mg PRN Q8HRS PRN IV NAUSEA/VOMITING; Start 07/23/16 at 18:30; Stop 07/24/16 at 18:29; Status DC Fentanyl Citrate (Fentanyl 2ml Vial) 25 mcg PRN Q2HR PRN IV PAIN; Start at 18:30; Stop 07/23/16 at 19:32; Status DC Sodium Chloride 1,000 ml @ 75 mls/hr [id number] IV Last administered on 02:36; Start 07/23/16 at 19:15; Stop 07/27/16 at 10:10; Status DC Acetaminophen (Tylenol) 325 mg PRN Q6HRS PRN PO MILD PAIN / TEMP; Start at 19:15 Hydralazine HCl (Apresoline) 10 mg PRN Q4HRS PRN IVP ELEVATED BP, SEE COMMENTS Last administered on 07/27/16 09:34; Start 07/23/16 at 19:15 Ondansetron HCl (Zofran) 4 mg PRN Q8HRS PRN IV NAUSEA/VOMITING Last administered on 07/26/16 05:53; Start 07/23/16 at 19:15 Albuterol Sulfate (Ventolin Neb Soln) 2.5 mg PRN Q4HRS PRN NEB SHORTNESS OF BREATH; Start 07/23/16 at 19:15 Morphine Sulfate 2 mg PRN Q2HR PRN IV PAIN Last administered on 07/25/16 01:33 ; Start 07/23/16 at 19:30; Stop 07/25/16 at 16:25; Status DC Iohexol (Omnipaque 240 Mg/ml) 50 ml 1X ONCE PO Last administered on 6/8/17at 19:56; Start 07/23/16 at 19:45; Stop 07/23/16 at 19:46; Status DC Info (Do NOT chart on this entry -- for MONITORING) 1 each PRN DAILY PRN MC SEE COMMENTS; Start 07/23/16 at 19:45; Stop 07/25/16 at 19:44; Status DC Cellulose 1 each STK-MED ONCE .ROUTE ; Start 07/24/16 at 08:11; Stop 07/24/16 at 08:12; Status DC Iohexol (Omnipaque 300 Mg/ml) 50 ml STK-MED ONCE .ROUTE ; Start 07/24/16 at 08:11 ; Stop 07/24/16 at 08:12; Status DC Bupivacaine HCl/ Epinephrine Bitart (Sensorcaine-Epi 0.25%-1:269002 Mpf) 30 ml STK-MED ONCE .ROUTE Last administered on 07/24/16t 11:10; Start 07/24/16 at 08:11 ; Stop 07/24/16 at 08:12; Status DC Cefazolin Sodium/ Dextrose 50 ml @ As Directed STK-MED ONCE IV ; Start 07/24/16 at 09:31; Stop 07/24/16 at 09:32; Status DC Famotidine (Pepcid) 20 mg STK-MED ONCE .ROUTE ; Start 07/24/16 at 10:35; Stop 07/24/16 at 10:36; Status DC Ondansetron HCl (Zofran) 4 mg STK-MED ONCE .ROUTE ; Start 07/24/16 at 10:35; Stop 07/24/16 at 10:36; Status DC Propofol 20 ml @ As Directed STK-MED ONCE IV ; Start 07/24/16 at 10:35; Stop 07/24 at 10:36; Status DC Lidocaine HCl (Lidocaine Pf 2% Vial) 5 ml STK-MED ONCE .ROUTE ; Start 07/24/16 at 10:35; Stop 07/24/16 at 10:36; Status DC Fentanyl Citrate (Fentanyl 2ml Vial) 100 mcg STK-MED ONCE .ROUTE ; Start at 10:35; Stop 07/24/16 at 10:36; Status DC Rocuronium [place] (Zemuron) 50 mg STK-MED ONCE .ROUTE ; Start 07/24/16 at 10:35 ; Stop 07/24/16 at 10:36; Status DC Pantoprazole Sodium (Protonix) 40 mg DAILYAC PO Last administered on 07/26/16 08:53; Start 07/24/16 at 11:00 Glycopyrrolate (Robinul) 1 mg STK-MED ONCE .ROUTE ; Start 07/24/16 at 11:30; Stop 07/24/16 at 11:31; Status DC Neostigmine Methylsulfate 5 mg STK-MED ONCE .ROUTE ; Start 07/24/16 at 11:30; Stop 07/24/16 at 11:31; Status DC Desflurane (Suprane) 30 ml STK-MED ONCE IH ; Start 07/24/16 at 11:32; Stop at 11:33; Status DC Oxycodone/ Acetaminophen (Percocet 5/325) 1 tab PRN Q4HRS PRN PO PAIN Last administered on 07/24/16 21:50; Start 07/24/16 at 11:45; Stop 07/26/16 at 10:07; Status DC Oxycodone/ Acetaminophen (Percocet 5/325) 2 tab PRN Q4HRS PRN PO PAIN Last administered on 07/26/16 05:46; Start 07/24/16 at 11:45; Stop 07/26/16 at 10:07 ; Status DC Ondansetron HCl (Zofran) 4 mg PRN Q6HRS PRN IV NAUSEA/VOMITING; Start 07/24/16 at 12:00; Stop 07/25/16 at 11:59; Status DC Fentanyl Citrate (Fentanyl 2ml Vial) 25 mcg PRN Q5MIN PRN IV MILD PAIN; Start 07/24/16 at 12:00; Stop 07/25/16 at 11:59; Status DC Fentanyl Citrate (Fentanyl 2ml Vial) 50 mcg PRN Q5MIN PRN IV MODERATE PAIN Last administered on 07/24/16 12:26; Start 07/24/16 at 12:00; Stop 07/25/16 at 11 :59; Status DC Morphine Sulfate 1 mg PRN Q10MIN PRN IV SEVERE PAIN Last administered on 12:32; Start 07/24/16 at 12:00; Stop 07/25/16 at 11:59; Status DC Ringer's Solution 1,000 ml @ 0 mls/hr Q0M IV ; Start 07/24/16 at 11:56; Stop 07/24/16 at 23:55; Status DC Lidocaine HCl 2 ml PRN 1X PRN ID PRIOR TO IV START; Start 07/24/16 at 12:00; Stop 07/25/16 at 11:59; Status DC Hydromorphone HCl (Dilaudid) 0.5 mg PRN Q10MIN PRN IV SEV PAIN, Second choice; Start 07/24/16 at 12:00; Stop 07/25/16 at 11:59; Status DC Prochlorperazine Edisylate (Compazine) 5 mg PACU PRN PRN IV NAUSEA, MRX1; Start 07/24/16 at 12:00; Stop 07/25/16 at 11:59; Status DC Amlodipine Besylate (Norvasc) 5 mg DAILY PO Last administered on 07/26/16 08: 54; Start 07/24/16 at 14:00 Famotidine (Pepcid) 20 mg QHS PO Last administered on 07/25/16 21:06; Start at 21:00 Metoprolol Succinate (Toprol Xl) 100 mg BID PO Last administered on 07/25/16 21:07; Start 07/24/16 at 15:00 Dutasteride (Avodart) 0.5 mg DAILY PO ; Start 07/25/16 at 09:00; Stop 07/25/16 at 09:00; Status DC Tamsulosin HCl (Flomax) 0.4 mg DAILY PO ; Start 07/25/16 at 09:00; Stop at 09:00; Status DC Dicyclomine HCl (Bentyl) 20 mg QID PO Last administered on 07/26/16 08:52; Start 07/24/16 at 23:15 Losartan Potassium (Cozaar) 100 mg DAILY PO Last administered on 07/26/16 08: 53; Start 07/25/16 at 09:00 Dutasteride (Avodart) 0.5 mg DAILY PO Last administered on 07/26/16 08:54; Start 07/24/16 at 23:15 Tamsulosin HCl (Flomax) 0.4 mg DAILY PO Last administered on 07/26/16 08:53; Start 07/24/16 at 23:15 Senna/Docusate Sodium (Senna Plus) 2 tab PRN BID PRN PO CONSTIPATION Last administered on 07/26/16 08:53; Start 07/26/16 at 08:45 Bisacodyl (Dulcolax Supp) [address] CONSTIPATION Last administered on 07/26/16 14:54; Start 07/26/16 at 10:15 Potassium Chloride 30 meq/ Sodium Chloride 1,015 ml @ 75 mls/hr [id number] IV Last administered on 07/27/16 05:45; Start 07/26/16 at 10:30; Stop 07/27/16 at 10:10; Status DC Bisacodyl (Dulcolax Supp) [address] CONSTIPATION; Start 07/26/16 at 10:15; Status Cancel Morphine Sulfate 1 mg PRN Q2HR PRN IV PAIN; Start 07/26/16 at 14:45 Bisacodyl (Dulcolax Supp) [address] CONSTIPATION; Start 07/26/16 at 14:45; Status Cancel Morphine Sulfate 2 mg PRN Q2HR PRN IV PAIN Last administered on 07/27/16 11:04 ; Start 07/26/16 at 15:00 Throat Lozenges (Chloraseptic) 1 spray PRN Q2HR PRN PO SORE THROAT; Start 07/26 at 19:45; Status UNV Throat Lozenges (Chloraseptic) 1 spray PRN Q2HR PRN PO SORE THROAT Last administered on 07/26/16 21:04; Start 07/26/16 at 20:00 Sodium Chloride 1,000 ml @ 100 mls/hr Q10H IV ; Start 07/27/16 at 10:30; Stop 07/27/16 at 12:32; Status DC Active Scripts Active Famotidine 20 Mg Tablet 20 Mg PO BID Reported Dicyclomine Hcl 20 Mg Tablet 1 Tab PO QID Avodart (Dutasteride) 0.5 Mg Capsule 1 Cap PO DAILY Diovan (Valsartan) 160 Mg Tablet 160 Mg PO DAILY Tamsulosin Hcl 0.4 Mg Cap.er.24h 1 Cap PO DAILY Amlodipine Besylate 5 Mg Tablet 5 Mg PO DAILY Multiple Vitamin (Multivitamin With Minerals) 1 Each Tablet 1 Each PO DAILY [Vitamin B 12] DAILY Flaxseed (Flaxseed Oil) 1,000 Mg Capsule 1,000 Mg PO DAILY Toprol Xl (Metoprolol Succinate) 100 Mg Tab.er.24h 100 Mg PO BID Vitals/I & O Vital Sign - Last 24 Hours 07/26/16 07/26/16 07/26/16 07/26/16 14:54 15:00 19:00 20:00 Temp 98.4 98.7 98.4 98.7 Pulse 95 73 Resp 18 18 B/P (MAP) 174/92 (119) 166/83 (110) Pulse Ox 96 97 98 O2 Delivery Room Air Room Air Room Air Room Air O2 Flow Rate 2.0 07/26/16 07/26/16 07/27/16 07/27/16 21:04 23:00 03:24 03:27 Temp 98.5 98.5 98.5 98.5 Pulse 72 89 Resp 16 18 18 B/P (MAP) 132/96 (108) 182/94 (123) 184/92 Pulse Ox 96 96 O2 Delivery Room Air Room Air Room Air 07/27/16 07/27/16 07/27/16 07/27/16 04:10 04:40 05:05 07:00 Temp 98.1 98.1 Pulse 95 Resp 16 16 20 B/P (MAP) 155/72 (99) 180/99 (126) Pulse Ox 98 O2 Delivery Room Air Room Air 07/27/16 07/27/16 07/27/16 07/27/16 08:00 09:34 11:00 11:04 Temp 98.2 98.2 Pulse 95 97 Resp 20 B/P (MAP) 180/99 156/81 (106) Pulse Ox 99 98 O2 Delivery Room Air Room Air Room Air 07/27/16 11:30 Pulse Ox 98 O2 Delivery Room Air Intake and Output 07/26/16 07/26/16 07/27/16 14:59 22:59 06:59 Intake Total 500 ml 720 ml Output Total 750 ml 600 ml Balance -250 ml 120 ml SINGH THURSTON MD Jul 27, 2016 14:00
--- NOTE | 2016-07-27 15:34 | RAD ---
EXAM: Bone scintigraphy. HISTORY: Abdominal carcinomatosis, staging. TECHNIQUE: Following the intravenous injection of 25.0 mCi of Tc-99m labeled methylene diphosphonate (MDP), delayed images of the whole body were performed in anterior and posterior projections. Comparison is made to CT of 07/27/2016, 07/23/2016. FINDINGS: There are no foci of intense uptake suggestive of osseous metastatic disease. Left ureter is prominent suggesting hydroureter, but this is not seen on comparison CT. Uptake in the right wrist there is likely posttraumatic. There is degenerative uptake at the right 1st metatarsophalangeal joint. IMPRESSION: 1. No scintigraphic evidence of osseous metastatic disease. 2. Prominence of the left ureter without anatomic correlate on prior CT. Correlate for variable obstruction.
--- NOTE | 2016-07-27 16:52 | PATHOLOGY ---
PATHOLOGY REPORT * * * * * * * * FINAL DIAGNOSIS: Fibroadipose tissue, omental biopsy: - METASTATIC MUCINOUS ADENOCARCINOMA. SEE COMMENT. COMMENT: Sections of the omental biopsy show extensive replacement of omentum by a mucinous neoplasm. The omentum is replaced by numerous, variably sized, pools of mucin. Some of the mucin pools are partially lined by atypical mucin-producing columnar cells having basally situated mildly enlarged hyperchromatic nuclei. Some of the pools of mucin contain mucin-producing signet ring cells. The morphologic findings are supportive of the diagnosis of a metastatic mucinous adenocarcinoma. The most likely primary sites would include colon and rectum, and appendix. Correlate clinically. The case is also examined by Dr. Skinner, who concurs with the diagnosis. The results are telephoned to Dr. Painting on 07/27/2016, at 9:30 a.m. (JPM:csd; d/t: 07/27/2016) REPORT ELECTRONICALLY SIGNED BY: Jhonny Tidwell M.D. DATE/TIME: 07/27/2016 16:49 * * * * * * * * GROSS PATHOLOGY: The specimen is submitted in formalin, designated "Dameon Bledsoe, omental biopsy" and consists of an elongate, slightly curved segment of pink underwood, rubbery, extensively nodular, firm soft tissue, measuring 6.7 x 2.3 x 1.8 cm in maximum dimensions. There are multiple focal areas of mucoid, clear material densely adherent to the surface. The specimen is inked with black ink and serially sectioned to reveal a lopez-white to lopez-underwood gritty and mucoid cut surface. Multiple insurance service representative sections are submitted in cassettes A1 and A2. (JPM; 07/24/16) INITIAL CPT CODE(S): A; 79767 Professional services performed by [facility] at [facility] [address] [place] [address] Technical services performed by [facility] at [address] [place] [address], [address], [place] [address]. SPECIMEN(S) RECEIVED: A.Omental biopsy CLINICAL HISTORY: Abdominal pain PATIENT: DAMEON BLEDSOE /AGE: 8 1935 (Age: 80) PATIENT #: [id number] ALT CASE #: SPECIMEN COLLECTION DATE: 07/24/2016 SPECIMEN RECEIVED DATE: 07/24/2016 [facility] - [id number] [address] - PHONE: [phone] * * * END OF REPORT * * *
[2016-07-27] MEDS: HEPARIN PF for SUB-Q USE 5,000 UNIT/0.5 ML VIAL. SQ SCH ×2 (17:15→21:59)
[2016-07-27] MEDS: SENNOSIDES/DOCUSATE 8.6/50MG TABLET. PO PRN (21:57)
[2016-07-27] MEDS: FAMOTIDINE 20 MG TABLET. PO SCH (21:57)
[2016-07-28] MEDS: IV NORMAL SALINE 1000ML BAG 1,000 ML IV SCH ×3 (01:32→23:46)
[2016-07-28 03:29] VITALS: BP 107/71
[2016-07-28 05:20] LABS: CEA 25.9 ng/mL (0.0-4.7)
[2016-07-28 05:52] LABS: BASO % 0 % (0-3); EOS % 0 % (0-3); HEMOGLOBIN 10.4 g/dL (13.0-17.5); LYMPH # 0.2 x10^3/uL (1.0-4.8); LYMPH % 3 % (24-48); MEAN CORPUSCULAR HEMOGLOBIN 29 pg (25-35); MEAN CORPUSCULAR HGB CONC 32 g/dL (31-37); MEAN CORPUSCULAR VOLUME 93 fL (79-100); MONO % 15 % (0-9); NEUT % 82 % (31-73); PLATELET COUNT 161 x10^3/uL (140-400); RED BLOOD COUNT 3.56 x10^6/uL (4.30-5.70); WHITE BLOOD COUNT 8.7 x10^3/uL (4.0-11.0)
[2016-07-28 06:09] LABS: CALCIUM 8.2 mg/dL (8.5-10.1); CREATININE 3.1 mg/dL (0.7-1.3); GFR 23.5; POTASSIUM 5.2 mmol/L (3.5-5.1)
[2016-07-28] MEDS: PANTOPRAZOLE 40 MG TABLET.DR. PO SCH (06:12)
[2016-07-28] MEDS: HEPARIN PF for SUB-Q USE 5,000 UNIT/0.5 ML VIAL. SQ SCH ×3 (06:13→21:46)
[2016-07-28 07:00] VITALS: BP 116/68
[2016-07-28] MEDS: METOPROLOL SUCC 24HR ER 100 MG TAB.ER.24H. PO SCH ×2 (08:50→21:37)
[2016-07-28] MEDS: DICYCLOMINE HCL 10 MG CAPSULE PO SCH ×4 (08:50→21:36)
[2016-07-28] MEDS: DUTASTERIDE 0.5 MG CAPSULE PO SCH (08:51)
[2016-07-28] MEDS: LOSARTAN POTASSIUM 50 MG TABLET. PO SCH (08:51)
[2016-07-28] MEDS: amLODIPine BESYLATE 5 MG TABLET PO SCH (08:51)
[2016-07-28] MEDS ORDERED: SODIUM POLYSTYRENE SULFONATE 15 GM/60 ML ORAL.SUSP. PO ONE (09:45)
[2016-07-28] MEDS: TAMSULOSIN 0.4 MG CAP.ER.24H. PO SCH (10:12)
--- NOTE | 2016-07-28 10:46 | PDOC2 ---
CONSULT Date of Consult Date of Consult DATE: 07/28/16 TIME: 10:39 Reason for Consult Reason for Consult: RENAL FAILURE Referring Physician Referring Physician: CASPER Identification/Chief Complaint Chief Complaint THIS IS AN 80 YR OLD HERE WITH ABD PAIN. HE WAS EVALUATED AND UNDERWENT A CHOLY AT WHICH TIME HE WAS NOTED TO HAVE ABD CANCER. FURTHER EVAL IS ONGOING AT THIS TIME. CR ON ADMIT WAS 2.3 THEN DOWN TO 1.9 BUT NOW UP TO 3.1. HE IS NOT AWARE OF ANY CKD AND DENIED ANY PRIOR PROBLEMS WITH VOIDING. NO HX OF ANY KIDNEY OR BLADDER SURGERIES HEMATURIA DYSURIA OR FREQUENCY NOTED Source Source: Chart review History of Present Illness Reason for Visit: ABOVE Past Medical History Cardiovascular: HTN Renal/: Benign prostatic enlarg. Past Surgical History Past Surgical History: Other (RIH repair ) Family History Family History: Hypertension Social History No ALCOHOL: none Drugs: None Lives: with Family Current Problem List Problem List Problems Medical Problems: (1) Abdominal pain Status: Acute Current Medications Current Medications Current Medications Fentanyl Citrate (Fentanyl 2ml Vial) 25 mcg PRN Q15MIN PRN IV PAIN GREATER THAN 3/10 Last administered on 07/23/16 19:35; Start 07/23/16 at 16:45; Stop 07/24 at 16:44; Status DC Ondansetron HCl (Zofran) 4 mg PRN Q8HRS PRN IV NAUSEA/VOMITING; Start 07/23/16 at 18:30; Stop 07/24/16 at 18:29; Status DC Fentanyl Citrate (Fentanyl 2ml Vial) 25 mcg PRN Q2HR PRN IV PAIN; Start at 18:30; Stop 07/23/16 at 19:32; Status DC Sodium Chloride 1,000 ml @ 75 mls/hr [id number] IV Last administered on 02:36; Start 07/23/16 at 19:15; Stop 07/27/16 at 10:10; Status DC Acetaminophen (Tylenol) 325 mg PRN Q6HRS PRN PO MILD PAIN / TEMP; Start at 19:15 Hydralazine HCl (Apresoline) 10 mg PRN Q4HRS PRN IVP ELEVATED BP, SEE COMMENTS Last administered on 07/27/16 17:16; Start 07/23/16 at 19:15 Ondansetron HCl (Zofran) 4 mg PRN Q8HRS PRN IV NAUSEA/VOMITING Last administered on 07/26/16 05:53; Start 07/23/16 at 19:15 Albuterol Sulfate (Ventolin Neb Soln) 2.5 mg PRN Q4HRS PRN NEB SHORTNESS OF BREATH; Start 07/23/16 at 19:15 Morphine Sulfate 2 mg PRN Q2HR PRN IV PAIN Last administered on 07/25/16 01:33 ; Start 07/23/16 at 19:30; Stop 07/25/16 at 16:25; Status DC Iohexol (Omnipaque 240 Mg/ml) 50 ml 1X ONCE PO Last administered on 07/23/16 19:56; Start 07/23/16 at 19:45; Stop 07/23/16 at 19:46; Status DC Info (Do NOT chart on this entry -- for MONITORING) 1 each PRN DAILY PRN MC SEE COMMENTS; Start 07/23/16 at 19:45; Stop 07/25/16 at 19:44; Status DC Cellulose 1 each STK-MED ONCE .ROUTE ; Start 07/24/16 at 08:11; Stop 07/24/16 at 08:12; Status DC Iohexol (Omnipaque 300 Mg/ml) 50 ml STK-MED ONCE .ROUTE ; Start 07/24/16 at 08:11 ; Stop 07/24/16 at 08:12; Status DC Bupivacaine HCl/ Epinephrine Bitart (Sensorcaine-Epi 0.25%-1:[id number] Mpf) 30 ml STK-MED ONCE .ROUTE Last administered on 07/24/16 11:10; Start 07/24/16 at 08:11 ; Stop 07/24/16 at 08:12; Status DC Cefazolin Sodium/ Dextrose 50 ml @ As Directed STK-MED ONCE IV ; Start 07/24/16 at 09:31; Stop 07/24/16 at 09:32; Status DC Famotidine (Pepcid) 20 mg STK-MED ONCE .ROUTE ; Start 07/24/16 at 10:35; Stop 07/24/16 at 10:36; Status DC Ondansetron HCl (Zofran) 4 mg STK-MED ONCE .ROUTE ; Start 07/24/16 at 10:35; Stop 07/24/16 at 10:36; Status DC Propofol 20 ml @ As Directed STK-MED ONCE IV ; Start 07/24/16 at 10:35; Stop 07/24 at 10:36; Status DC Lidocaine HCl (Lidocaine Pf 2% Vial) 5 ml STK-MED ONCE .ROUTE ; Start 07/24/16 at 10:35; Stop 07/24/16 at 10:36; Status DC Fentanyl Citrate (Fentanyl 2ml Vial) 100 mcg STK-MED ONCE .ROUTE ; Start at 10:35; Stop 07/24/16 at 10:36; Status DC Rocuronium [place] (Zemuron) 50 mg STK-MED ONCE .ROUTE ; Start 07/24/16 at 10:35 ; Stop 07/24/16 at 10:36; Status DC Pantoprazole Sodium (Protonix) 40 mg DAILYAC PO Last administered on 07/28/16t 06:12; Start 07/24/16 at 11:00 Glycopyrrolate (Robinul) 1 mg STK-MED ONCE .ROUTE ; Start 07/24/16 at 11:30; Stop 07/24/16 at 11:31; Status DC Neostigmine Methylsulfate 5 mg STK-MED ONCE .ROUTE ; Start 07/24/16 at 11:30; Stop 07/24/16 at 11:31; Status DC Desflurane (Suprane) 30 ml STK-MED ONCE IH ; Start 07/24/16 at 11:32; Stop at 11:33; Status DC Oxycodone/ Acetaminophen (Percocet 5/325) 1 tab PRN Q4HRS PRN PO PAIN Last administered on 07/24/16t 21:50; Start 07/24/16 at 11:45; Stop 07/26/16 at 10:07; Status DC Oxycodone/ Acetaminophen (Percocet 5/325) 2 tab PRN Q4HRS PRN PO PAIN Last administered on 07/26/16t 05:46; Start 07/24/16 at 11:45; Stop 07/26/16 at 10:07 ; Status DC Ondansetron HCl (Zofran) 4 mg PRN Q6HRS PRN IV NAUSEA/VOMITING; Start 07/24/16 at 12:00; Stop 07/25/16 at 11:59; Status DC Fentanyl Citrate (Fentanyl 2ml Vial) 25 mcg PRN Q5MIN PRN IV MILD PAIN; Start 07/24/16 at 12:00; Stop 07/25/16 at 11:59; Status DC Fentanyl Citrate (Fentanyl 2ml Vial) 50 mcg PRN Q5MIN PRN IV MODERATE PAIN Last administered on 07/24/16 12:26; Start 07/24/16 at 12:00; Stop 07/25/16 at 11 :59; Status DC Morphine Sulfate 1 mg PRN Q10MIN PRN IV SEVERE PAIN Last administered on 12:32; Start 07/24/16 at 12:00; Stop 07/25/16 at 11:59; Status DC Ringer's Solution 1,000 ml @ 0 mls/hr Q0M IV ; Start 07/24/16 at 11:56; Stop 07/24/16 at 23:55; Status DC Lidocaine HCl 2 ml PRN 1X PRN ID PRIOR TO IV START; Start 07/24/16 at 12:00; Stop 07/25/16 at 11:59; Status DC Hydromorphone HCl (Dilaudid) 0.5 mg PRN Q10MIN PRN IV SEV PAIN, Second choice; Start 07/24/16 at 12:00; Stop 07/25/16 at 11:59; Status DC Prochlorperazine Edisylate (Compazine) 5 mg PACU PRN PRN IV NAUSEA, MRX1; Start 07/24/16 at 12:00; Stop 07/25/16 at 11:59; Status DC Amlodipine Besylate (Norvasc) 5 mg DAILY PO Last administered on 07/28/16 08: 51; Start 07/24/16 at 14:00 Famotidine (Pepcid) 20 mg QHS PO Last administered on 07/27/16 21:57; Start at 21:00 Metoprolol Succinate (Toprol Xl) 100 mg BID PO Last administered on 07/28/16 08:50; Start 07/24/16 at 15:00 Dutasteride (Avodart) 0.5 mg DAILY PO ; Start 07/25/16 at 09:00; Stop 07/25/16 at 09:00; Status DC Tamsulosin HCl (Flomax) 0.4 mg DAILY PO ; Start 07/25/16 at 09:00; Stop at 09:00; Status DC Dicyclomine HCl (Bentyl) 20 mg QID PO Last administered on 07/28/16 08:50; Start 07/24/16 at 23:15 Losartan Potassium (Cozaar) 100 mg DAILY PO Last administered on 07/28/16 08: 51; Start 07/25/16 at 09:00 Dutasteride (Avodart) 0.5 mg DAILY PO Last administered on 07/28/16 08:51; Start 07/24/16 at 23:15 Tamsulosin HCl (Flomax) 0.4 mg DAILY PO Last administered on 07/28/16 10:12; Start 07/24/16 at 23:15 Senna/Docusate Sodium (Senna Plus) 2 tab PRN BID PRN PO CONSTIPATION Last administered on 07/27/16 21:57; Start 07/26/16 at 08:45 Bisacodyl (Dulcolax Supp) 10 mg PRN DAILY PRN [place] CONSTIPATION Last administered on 07/26/16 14:54; Start 07/26/16 at 10:15 Potassium Chloride 30 meq/ Sodium Chloride 1,015 ml @ 75 mls/hr [id number] IV Last administered on 07/27/16 05:45; Start 07/26/16 at 10:30; Stop 07/27/16 at 10:10; Status DC Bisacodyl (Dulcolax Supp) 10 mg PRN DAILY PRN [place] CONSTIPATION; Start 07/26/16 at 10:15; Status Cancel Morphine Sulfate 1 mg PRN Q2HR PRN IV PAIN; Start 07/26/16 at 14:45 Bisacodyl (Dulcolax Supp) 10 mg PRN DAILY PRN [place] CONSTIPATION; Start 07/26/16 at 14:45; Status Cancel Morphine Sulfate 2 mg PRN Q2HR PRN IV PAIN Last administered on 07/27/16 11:04 ; Start 07/26/16 at 15:00 Throat Lozenges (Chloraseptic) 1 spray PRN Q2HR PRN PO SORE THROAT; Start 07/26 at 19:45; Status UNV Throat Lozenges (Chloraseptic) 1 spray PRN Q2HR PRN PO SORE THROAT Last administered on 07/26/16 21:04; Start 07/26/16 at 20:00 Sodium Chloride 1,000 ml @ 100 mls/hr Q10H IV ; Start 07/27/16 at 10:30; Stop 07/27/16 at 12:32; Status DC Sodium Chloride 1,000 ml @ 100 mls/hr Q10H IV Last administered on 07/28/16 01:32; Start 07/27/16 at 14:00 Heparin Sodium (Porcine) (Heparin Sq) 5,000 unit Q8HRS SQ Last administered on 07/28/16 06:13; Start 07/27/16 at 14:00 Sodium Polystyrene Sulfonate (Kayexalate) 15 gm 1X ONCE PO ; Start 07/28/16 at 09:45; Stop 07/28/16 at 09:46; Status DC Active Scripts Active Famotidine 20 Mg Tablet 20 Mg PO BID Reported Dicyclomine Hcl 20 Mg Tablet 1 Tab PO QID Avodart (Dutasteride) 0.5 Mg Capsule 1 Cap PO DAILY Diovan (Valsartan) 160 Mg Tablet 160 Mg PO DAILY Tamsulosin Hcl 0.4 Mg Cap.er.24h 1 Cap PO DAILY Amlodipine Besylate 5 Mg Tablet 5 Mg PO DAILY Multiple Vitamin (Multivitamin With Minerals) 1 Each Tablet 1 Each PO DAILY [Vitamin B 12] DAILY Flaxseed (Flaxseed Oil) 1,000 Mg Capsule 1,000 Mg PO DAILY Toprol Xl (Metoprolol Succinate) 100 Mg Tab.er.24h 100 Mg PO BID Allergies Allergies: Coded Allergies: Fish Containing Products (Verified Allergy, Intermediate, Rash, 07/24/16) RASH ON LEGS [place]-3 acid Ethyl Esters (Verified Allergy, Intermediate, Rash, 07/24/16) RASH ON LEGS ROS General: YES: Fatigue PSYCHOLOGICAL ROS: YES: Anxiety Eyes: Yes Decreased vision HEENT: YES: Heacaches Respiratory: YES: Cough Gastrointestinal: Yes Abdominal Pain Genitourinary: YES Retention Musculoskeletal: Yes Muscular Weakness Neurological: Yes Weakness Skin: Yes Dry Skin Physical Exam General: Alert, Oriented X3, Cooperative, No acute distress HEENT: Atraumatic, PERRLA Lungs: Clear to auscultation Heart: Regular rate, Normal S1, Normal S2 Abdomen: Normal bowel sounds, Soft, No tenderness, Other (? BLADDER DISTENTION) Skin: No rashes, No significant lesion Neuro: Normal speech Psych/Mental Status: Mental status NL, Mood NL Vitals VITALS Vital Signs Date Time Temp Pulse Resp B/P (MAP) Pulse Ox O2 Delivery O2 Flow Rate FiO2 07/28/16 08:51 94 116/68 07/28/16 08:00 Room Air 07/28/16 07:00 98.8 18 99 98.8 Labs Labs Laboratory Tests Test 07/27/16 04:15 07/28/16 05:20 White Blood Count 14.8 x10^3/uL (4.0-11.0) 8.7 x10^3/uL (4.0-11.0) Red Blood Count 3.81 x10^6/uL (4.30-5.70) 3.56 x10^6/uL (4.30-5.70) Hemoglobin 11.0 g/dL (13.0-17.5) 10.4 g/dL (13.0-17.5) Hematocrit 34.9 % (39.0-53.0) 33.0 % (39.0-53.0) Mean Corpuscular Volume 92 fL (79-100) 93 fL (79-100) Mean Corpuscular Hemoglobin 29 pg (25-35) 29 pg (25-35) Mean Corpuscular Hemoglobin Concent 32 g/dL (31-37) 32 g/dL (31-37) Red Cell Distribution Width 13.6 % (11.5-14.5) 14.0 % (11.5-14.5) Platelet Count 182 x10^3/uL (140-400) 161 x10^3/uL (140-400) Neutrophils (%) (Auto) 90 % (31-73) 82 % (31-73) Lymphocytes (%) (Auto) 3 % (24-48) 3 % (24-48) Monocytes (%) (Auto) 7 % (0-9) 15 % (0-9) Eosinophils (%) (Auto) 0 % (0-3) 0 % (0-3) Basophils (%) (Auto) 0 % (0-3) 0 % (0-3) Neutrophils # (Auto) 13.3 x10^3uL (1.8-7.7) 7.1 x10^3uL (1.8-7.7) Lymphocytes # (Auto) 0.5 x10^3/uL (1.0-4.8) 0.2 x10^3/uL (1.0-4.8) Monocytes # (Auto) 1.1 x10^3/uL (0.0-1.1) 1.3 x10^3/uL (0.0-1.1) Eosinophils # (Auto) 0.0 x10^3/uL (0.0-0.7) 0.0 x10^3/uL (0.0-0.7) Basophils # (Auto) 0.0 x10^3/uL (0.0-0.2) 0.0 x10^3/uL (0.0-0.2) Segmented Neutrophils % 91 % (35-66) Band Neutrophils % 2 % (0-9) Lymphocytes % 2 % (24-48) Monocytes % 5 % (0-10) Platelet Estimate Adequate (ADEQUATE) Sodium Level 132 mmol/L (136-145) 134 mmol/L (136-145) Potassium Level 4.8 mmol/L (3.5-5.1) 5.2 mmol/L (3.5-5.1) Chloride Level 101 mmol/L (98-107) 105 mmol/L (98-107) Carbon Dioxide Level 18 mmol/L (21-32) 18 mmol/L (21-32) Anion Gap 13 (6-14) 11 (6-14) Blood Urea Nitrogen 28 mg/dL (8-26) 35 mg/dL (8-26) Creatinine 3.1 mg/dL (0.7-1.3) 3.1 mg/dL (0.7-1.3) Estimated GFR (Cockcroft-Gault) 23.5 23.5 Glucose Level 125 mg/dL (70-99) 110 mg/dL (70-99) Calcium Level 8.8 mg/dL (8.5-10.1) 8.2 mg/dL (8.5-10.1) Laboratory Tests Test 07/28/16 05:20 White Blood Count 8.7 x10^3/uL (4.0-11.0) Red Blood Count 3.56 x10^6/uL (4.30-5.70) Hemoglobin 10.4 g/dL (13.0-17.5) Hematocrit 33.0 % (39.0-53.0) Mean Corpuscular Volume 93 fL (79-100) Mean Corpuscular Hemoglobin 29 pg (25-35) Mean Corpuscular Hemoglobin Concent 32 g/dL (31-37) Red Cell Distribution Width 14.0 % (11.5-14.5) Platelet Count 161 x10^3/uL (140-400) Neutrophils (%) (Auto) 82 % (31-73) Lymphocytes (%) (Auto) 3 % (24-48) Monocytes (%) (Auto) 15 % (0-9) Eosinophils (%) (Auto) 0 % (0-3) Basophils (%) (Auto) 0 % (0-3) Neutrophils # (Auto) 7.1 x10^3uL (1.8-7.7) Lymphocytes # (Auto) 0.2 x10^3/uL (1.0-4.8) Monocytes # (Auto) 1.3 x10^3/uL (0.0-1.1) Eosinophils # (Auto) 0.0 x10^3/uL (0.0-0.7) Basophils # (Auto) 0.0 x10^3/uL (0.0-0.2) Sodium Level 134 mmol/L (136-145) Potassium Level 5.2 mmol/L (3.5-5.1) Chloride Level 105 mmol/L (98-107) Carbon Dioxide Level 18 mmol/L (21-32) Anion Gap 11 (6-14) Blood Urea Nitrogen 35 mg/dL (8-26) Creatinine 3.1 mg/dL (0.7-1.3) Estimated GFR (Cockcroft-Gault) 23.5 Glucose Level 110 mg/dL (70-99) Calcium Level 8.2 mg/dL (8.5-10.1) Assessment/Plan Assessment/Plan IMP ARMANDO DUE TO URINARY RETENTION-NEARLY ONE LITER ON BLADDER SCAN POSSIBLE CKD- LOW 1.9 DURING THIS HOSP STAY ABD CARCINOMATOSIS COMPLEX RIGHT RENAL CYST BPH ON CT SCAN PLAN ESTEVEZ TO BE MAINTAINED IVF'S STOP LOSARTAN FOR NOW START FLOMAX HEME/ONC EVAL AND TX RENAL CYST PROB DOES NOT NEED FURTHER EVAL GIVEN HIS METS LABS IN AM UPDATED FAMILY ESTEPHANIA NATHAN MD Jul 28, 2016 10:46
[2016-07-28 11:00] VITALS: BP 132/76
[2016-07-28] MEDS: MORPHINE SULFATE 2 MG/ML DISP.SYRIN. IV PRN ×3 (11:47→20:00)
--- NOTE | 2016-07-28 12:16 | PDOC ---
Subjective: Subjective: Feeling better since Enam[place]ado in, NG out. Daughter Mike wants to know why pathology isn't back, when EGD and colonoscopy are scheduled, etc. Objective: Objective: RN called this morning, daughter has more questions, wants EGD and colonoscopy. Dr. Mccann following, elevated Cr, urinary retention. D/w Dr. Painting. Vital Signs: Vital Signs Date Time Temp Pulse Resp B/P (MAP) Pulse Ox O2 Delivery O2 Flow Rate FiO2 07/28/16 11:47 Room Air 07/28/16 11:00 98.3 91 18 132/76 (94) 96 98.3 Labs: Laboratory Tests Test 07/28/16 05:20 White Blood Count 8.7 x10^3/uL Red Blood Count 3.56 x10^6/uL Hemoglobin 10.4 g/dL Hematocrit 33.0 % Mean Corpuscular Volume 93 fL Mean Corpuscular Hemoglobin 29 pg Mean Corpuscular Hemoglobin Concent 32 g/dL Red Cell Distribution Width 14.0 % Platelet Count 161 x10^3/uL Neutrophils (%) (Auto) 82 % Lymphocytes (%) (Auto) 3 % Monocytes (%) (Auto) 15 % Eosinophils (%) (Auto) 0 % Basophils (%) (Auto) 0 % Neutrophils # (Auto) 7.1 x10^3uL Lymphocytes # (Auto) 0.2 x10^3/uL Monocytes # (Auto) 1.3 x10^3/uL Eosinophils # (Auto) 0.0 x10^3/uL Basophils # (Auto) 0.0 x10^3/uL Sodium Level 134 mmol/L Potassium Level 5.2 mmol/L Chloride Level 105 mmol/L Carbon Dioxide Level 18 mmol/L Anion Gap 11 Blood Urea Nitrogen 35 mg/dL Creatinine 3.1 mg/dL Estimated GFR (Cockcroft-Gault) 23.5 Glucose Level 110 mg/dL Calcium Level 8.2 mg/dL Imaging: PATHOLOGY REPORT * * * * * * * * FINAL DIAGNOSIS: Fibroadipose tissue, omental biopsy: - METASTATIC MUCINOUS ADENOCARCINOMA. SEE COMMENT. COMMENT: Sections of the omental biopsy show extensive replacement of omentum by a mucinous neoplasm. The omentum is replaced by numerous, variably sized, pools of mucin. Some of the mucin pools are partially lined by atypical mucin- producing columnar cells having basally situated mildly enlarged hyperchromatic nuclei. Some of the pools of mucin contain mucin-producing signet ring cells. The morphologic findings are supportive of the diagnosis of a metastatic mucinous adenocarcinoma. The most likely primary sites would include colon and rectum, and appendix. PE: GEN: NAD LUNGS: clear HEART: RRR ABD: less distended/tight NEURO/PSYCH: A & O 3 A/P: Abdominal carcinomatosis -s/p diagnostic lap 07/24/16 -path suggestive of GI origin as above ARMANDO, urinary retention -per nephrology -- Follow renal function, EGD and colonoscopy when improved. Discussed w/ family in detail, all questions answered, RN present. DENISSE HUERTA Jul 28, 2016 12:16
--- NOTE | 2016-07-28 13:23 | PDOC ---
PROGRESS NOTES Chief Complaint Chief Complaint Cholecystitis ASSESSMENT AND PLAN: 1. Cholecystitis: s/p surgery with findings of perit carcinomatosis, 2. Metast CA, path METASTATIC MUCINOUS ADENOCARCINOMA 3. HTN: cont home meds 4. ARMANDO, obstructive nephropathy likely 5. Constipation (vs ileus), resolved. 6. Ascites: 2/2 malignancy 7. BPH talked to sx, and explained to family for 10min, will get PAT consult, chest CT and bone scan all neg for mets may need EGD/COLOnoscopy as per GI. add NS 100cc/h for ARMANDO clear liquid diet advance to full liquid image showed BPH, and possible left ureter obstruction, renal consulted. would like to get uro consult too, however, the only urologist in this hosp Dr. Varner wont return till 08/06. keep armando and ivf for now. on BPH meds. History of Present Illness History of Present Illness has BM since 07/27 mild abd distention and pain family asked again if ascites was removed by sx 3ds ago, and i told her yes. daughter wants to do EGD AND COlonoscopy and told her waiting for GI to see him. Vitals Vitals Vital Signs Date Time Temp Pulse Resp B/P (MAP) Pulse Ox O2 Delivery O2 Flow Rate FiO2 07/28/16 12:19 Room Air 07/28/16 11:00 98.3 91 18 132/76 (94) 96 98.3 Physical Exam General: Alert, Oriented X3, Cooperative, No acute distress Heart: Regular rate, Normal S1, Normal S2 Lungs: Clear Abdomen: Normal bowel sounds, Soft, No tenderness, Other (? BLADDER DISTENTION) Extremities: No cyanosis, Other (mild clubbing) Skin: No rashes, No significant lesion Labs LABS Laboratory Tests Test 07/28/16 05:20 White Blood Count 8.7 x10^3/uL (4.0-11.0) Red Blood Count 3.56 x10^6/uL (4.30-5.70) Hemoglobin 10.4 g/dL (13.0-17.5) Hematocrit 33.0 % (39.0-53.0) Mean Corpuscular Volume 93 fL (79-100) Mean Corpuscular Hemoglobin 29 pg (25-35) Mean Corpuscular Hemoglobin Concent 32 g/dL (31-37) Red Cell Distribution Width 14.0 % (11.5-14.5) Platelet Count 161 x10^3/uL (140-400) Neutrophils (%) (Auto) 82 % (31-73) Lymphocytes (%) (Auto) 3 % (24-48) Monocytes (%) (Auto) 15 % (0-9) Eosinophils (%) (Auto) 0 % (0-3) Basophils (%) (Auto) 0 % (0-3) Neutrophils # (Auto) 7.1 x10^3uL (1.8-7.7) Lymphocytes # (Auto) 0.2 x10^3/uL (1.0-4.8) Monocytes # (Auto) 1.3 x10^3/uL (0.0-1.1) Eosinophils # (Auto) 0.0 x10^3/uL (0.0-0.7) Basophils # (Auto) 0.0 x10^3/uL (0.0-0.2) Sodium Level 134 mmol/L (136-145) Potassium Level 5.2 mmol/L (3.5-5.1) Chloride Level 105 mmol/L (98-107) Carbon Dioxide Level 18 mmol/L (21-32) Anion Gap 11 (6-14) Blood Urea Nitrogen 35 mg/dL (8-26) Creatinine 3.1 mg/dL (0.7-1.3) Estimated GFR (Cockcroft-Gault) 23.5 Glucose Level 110 mg/dL (70-99) Calcium Level 8.2 mg/dL (8.5-10.1) Review of Systems Review of Systems no fever, chills, sob or chest pain Assessment and Plan Assessmemt and Plan Problems Medical Problems: (1) Abdominal pain Status: Acute Problems: Comment Review of Relevant I have reviewed the following items bishnu (where applicable) has been applied. Labs Laboratory Tests Test 07/27/16 04:15 07/28/16 05:20 White Blood Count 14.8 x10^3/uL (4.0-11.0) 8.7 x10^3/uL (4.0-11.0) Red Blood Count 3.81 x10^6/uL (4.30-5.70) 3.56 x10^6/uL (4.30-5.70) Hemoglobin 11.0 g/dL (13.0-17.5) 10.4 g/dL (13.0-17.5) Hematocrit 34.9 % (39.0-53.0) 33.0 % (39.0-53.0) Mean Corpuscular Volume 92 fL (79-100) 93 fL (79-100) Mean Corpuscular Hemoglobin 29 pg (25-35) 29 pg (25-35) Mean Corpuscular Hemoglobin Concent 32 g/dL (31-37) 32 g/dL (31-37) Red Cell Distribution Width 13.6 % (11.5-14.5) 14.0 % (11.5-14.5) Platelet Count 182 x10^3/uL (140-400) 161 x10^3/uL (140-400) Neutrophils (%) (Auto) 90 % (31-73) 82 % (31-73) Lymphocytes (%) (Auto) 3 % (24-48) 3 % (24-48) Monocytes (%) (Auto) 7 % (0-9) 15 % (0-9) Eosinophils (%) (Auto) 0 % (0-3) 0 % (0-3) Basophils (%) (Auto) 0 % (0-3) 0 % (0-3) Neutrophils # (Auto) 13.3 x10^3uL (1.8-7.7) 7.1 x10^3uL (1.8-7.7) Lymphocytes # (Auto) 0.5 x10^3/uL (1.0-4.8) 0.2 x10^3/uL (1.0-4.8) Monocytes # (Auto) 1.1 x10^3/uL (0.0-1.1) 1.3 x10^3/uL (0.0-1.1) Eosinophils # (Auto) 0.0 x10^3/uL (0.0-0.7) 0.0 x10^3/uL (0.0-0.7) Basophils # (Auto) 0.0 x10^3/uL (0.0-0.2) 0.0 x10^3/uL (0.0-0.2) Segmented Neutrophils % 91 % (35-66) Band Neutrophils % 2 % (0-9) Lymphocytes % 2 % (24-48) Monocytes % 5 % (0-10) Platelet Estimate Adequate (ADEQUATE) Sodium Level 132 mmol/L (136-145) 134 mmol/L (136-145) Potassium Level 4.8 mmol/L (3.5-5.1) 5.2 mmol/L (3.5-5.1) Chloride Level 101 mmol/L (98-107) 105 mmol/L (98-107) Carbon Dioxide Level 18 mmol/L (21-32) 18 mmol/L (21-32) Anion Gap 13 (6-14) 11 (6-14) Blood Urea Nitrogen 28 mg/dL (8-26) 35 mg/dL (8-26) Creatinine 3.1 mg/dL (0.7-1.3) 3.1 mg/dL (0.7-1.3) Estimated GFR (Cockcroft-Gault) 23.5 23.5 Glucose Level 125 mg/dL (70-99) 110 mg/dL (70-99) Calcium Level 8.8 mg/dL (8.5-10.1) 8.2 mg/dL (8.5-10.1) Laboratory Tests Test 07/28/16 05:20 White Blood Count 8.7 x10^3/uL (4.0-11.0) Red Blood Count 3.56 x10^6/uL (4.30-5.70) Hemoglobin 10.4 g/dL (13.0-17.5) Hematocrit 33.0 % (39.0-53.0) Mean Corpuscular Volume 93 fL (79-100) Mean Corpuscular Hemoglobin 29 pg (25-35) Mean Corpuscular Hemoglobin Concent 32 g/dL (31-37) Red Cell Distribution Width 14.0 % (11.5-14.5) Platelet Count 161 x10^3/uL (140-400) Neutrophils (%) (Auto) 82 % (31-73) Lymphocytes (%) (Auto) 3 % (24-48) Monocytes (%) (Auto) 15 % (0-9) Eosinophils (%) (Auto) 0 % (0-3) Basophils (%) (Auto) 0 % (0-3) Neutrophils # (Auto) 7.1 x10^3uL (1.8-7.7) Lymphocytes # (Auto) 0.2 x10^3/uL (1.0-4.8) Monocytes # (Auto) 1.3 x10^3/uL (0.0-1.1) Eosinophils # (Auto) 0.0 x10^3/uL (0.0-0.7) Basophils # (Auto) 0.0 x10^3/uL (0.0-0.2) Sodium Level 134 mmol/L (136-145) Potassium Level 5.2 mmol/L (3.5-5.1) Chloride Level 105 mmol/L (98-107) Carbon Dioxide Level 18 mmol/L (21-32) Anion Gap 11 (6-14) Blood Urea Nitrogen 35 mg/dL (8-26) Creatinine 3.1 mg/dL (0.7-1.3) Estimated GFR (Cockcroft-Gault) 23.5 Glucose Level 110 mg/dL (70-99) Calcium Level 8.2 mg/dL (8.5-10.1) Microbiology 07/23/16 Urine Culture - Final, Complete 07/23/16 Urine Culture Result 1 (TRUMAN) - Final, Complete Medications Current Medications Fentanyl Citrate (Fentanyl 2ml Vial) 25 mcg PRN Q15MIN PRN IV PAIN GREATER THAN 3/10 Last administered on 07/23/16 19:35; Start 07/23/16 at 16:45; Stop 07/24 at 16:44; Status DC Ondansetron HCl (Zofran) 4 mg PRN Q8HRS PRN IV NAUSEA/VOMITING; Start 07/23/16 at 18:30; Stop 07/24/16 at 18:29; Status DC Fentanyl Citrate (Fentanyl 2ml Vial) 25 mcg PRN Q2HR PRN IV PAIN; Start at 18:30; Stop 07/23/16 at 19:32; Status DC Sodium Chloride 1,000 ml @ 75 mls/hr [id number] IV Last administered on 02:36; Start 07/23/16 at 19:15; Stop 07/27/16 at 10:10; Status DC Acetaminophen (Tylenol) 325 mg PRN Q6HRS PRN PO MILD PAIN / TEMP; Start at 19:15 Hydralazine HCl (Apresoline) 10 mg PRN Q4HRS PRN IVP ELEVATED BP, SEE COMMENTS Last administered on 07/27/16 17:16; Start 07/23/16 at 19:15 Ondansetron HCl (Zofran) 4 mg PRN Q8HRS PRN IV NAUSEA/VOMITING Last administered on 07/26/16 05:53; Start 07/23/16 at 19:15 Albuterol Sulfate (Ventolin Neb Soln) 2.5 mg PRN Q4HRS PRN NEB SHORTNESS OF BREATH; Start 07/23/16 at 19:15 Morphine Sulfate 2 mg PRN Q2HR PRN IV PAIN Last administered on 07/25/16 01:33 ; Start 07/23/16 at 19:30; Stop 07/25/16 at 16:25; Status DC Iohexol (Omnipaque 240 Mg/ml) 50 ml 1X ONCE PO Last administered on 07/23/16 19:56; Start 07/23/16 at 19:45; Stop 07/23/16 at 19:46; Status DC Info (Do NOT chart on this entry -- for MONITORING) 1 each PRN DAILY PRN MC SEE COMMENTS; Start 07/23/16 at 19:45; Stop 07/25/16 at 19:44; Status DC Cellulose 1 each STK-MED ONCE .ROUTE ; Start 07/24/16 at 08:11; Stop 07/24/16 at 08:12; Status DC Iohexol (Omnipaque 300 Mg/ml) 50 ml STK-MED ONCE .ROUTE ; Start 07/24/16 at 08:11 ; Stop 07/24/16 at 08:12; Status DC Bupivacaine HCl/ Epinephrine Bitart (Sensorcaine-Epi 0.25%-1:825901 Mpf) 30 ml STK-MED ONCE .ROUTE Last administered on 07/24/16 11:10; Start 07/24/16 at 08:11 ; Stop 07/24/16 at 08:12; Status DC Cefazolin Sodium/ Dextrose 50 ml @ As Directed STK-MED ONCE IV ; Start 07/24/16 at 09:31; Stop 07/24/16 at 09:32; Status DC Famotidine (Pepcid) 20 mg STK-MED ONCE .ROUTE ; Start 07/24/16 at 10:35; Stop 07/24/16 at 10:36; Status DC Ondansetron HCl (Zofran) 4 mg STK-MED ONCE .ROUTE ; Start 07/24/16 at 10:35; Stop 07/24/16 at 10:36; Status DC Propofol 20 ml @ As Directed STK-MED ONCE IV ; Start 07/24/16 at 10:35; Stop 07/24 at 10:36; Status DC Lidocaine HCl (Lidocaine Pf 2% Vial) 5 ml STK-MED ONCE .ROUTE ; Start 07/24/16 at 10:35; Stop 07/24/16 at 10:36; Status DC Fentanyl Citrate (Fentanyl 2ml Vial) 100 mcg STK-MED ONCE .ROUTE ; Start at 10:35; Stop 07/24/16 at 10:36; Status DC Rocuronium Emery (Zemuron) 50 mg STK-MED ONCE .ROUTE ; Start 07/24/16 at 10:35 ; Stop 07/24/16 at 10:36; Status DC Pantoprazole Sodium (Protonix) 40 mg DAILYAC PO Last administered on 07/28/16 06:12; Start 07/24/16 at 11:00 Glycopyrrolate (Robinul) 1 mg STK-MED ONCE .ROUTE ; Start 07/24/16 at 11:30; Stop 07/24/16 at 11:31; Status DC Neostigmine Methylsulfate 5 mg STK-MED ONCE .ROUTE ; Start 07/24/16 at 11:30; Stop 07/24/16 at 11:31; Status DC Desflurane (Suprane) 30 ml STK-MED ONCE IH ; Start 07/24/16 at 11:32; Stop at 11:33; Status DC Oxycodone/ Acetaminophen (Percocet 5/325) 1 tab PRN Q4HRS PRN PO PAIN Last administered on 07/24/16 21:50; Start 07/24/16 at 11:45; Stop 07/26/16 at 10:07; Status DC Oxycodone/ Acetaminophen (Percocet 5/325) 2 tab PRN Q4HRS PRN PO PAIN Last administered on 07/26/16 05:46; Start 07/24/16 at 11:45; Stop 07/26/16 at 10:07 ; Status DC Ondansetron HCl (Zofran) 4 mg PRN Q6HRS PRN IV NAUSEA/VOMITING; Start 07/24/16 at 12:00; Stop 07/25/16 at 11:59; Status DC Fentanyl Citrate (Fentanyl 2ml Vial) 25 mcg PRN Q5MIN PRN IV MILD PAIN; Start 07/24/16 at 12:00; Stop 07/25/16 at 11:59; Status DC Fentanyl Citrate (Fentanyl 2ml Vial) 50 mcg PRN Q5MIN PRN IV MODERATE PAIN Last administered on 07/24/16 12:26; Start 07/24/16 at 12:00; Stop 07/25/16 at 11 :59; Status DC Morphine Sulfate 1 mg PRN Q10MIN PRN IV SEVERE PAIN Last administered on 12:32; Start 07/24/16 at 12:00; Stop 07/25/16 at 11:59; Status DC Ringer's Solution 1,000 ml @ 0 mls/hr Q0M IV ; Start 07/24/16 at 11:56; Stop 07/24/16 at 23:55; Status DC Lidocaine HCl 2 ml PRN 1X PRN ID PRIOR TO IV START; Start 07/24/16 at 12:00; Stop 07/25/16 at 11:59; Status DC Hydromorphone HCl (Dilaudid) 0.5 mg PRN Q10MIN PRN IV SEV PAIN, Second choice; Start 07/24/16 at 12:00; Stop 07/25/16 at 11:59; Status DC Prochlorperazine Edisylate (Compazine) 5 mg PACU PRN PRN IV NAUSEA, MRX1; Start 07/24/16 at 12:00; Stop 07/25/16 at 11:59; Status DC Amlodipine Besylate (Norvasc) 5 mg DAILY PO Last administered on 07/28/16 08: 51; Start 07/24/16 at 14:00 Famotidine (Pepcid) 20 mg QHS PO Last administered on 07/27/16 21:57; Start at 21:00 Metoprolol Succinate (Toprol Xl) 100 mg BID PO Last administered on 07/28/16 08:50; Start 07/24/16 at 15:00 Dutasteride (Avodart) 0.5 mg DAILY PO ; Start 07/25/16 at 09:00; Stop 07/25/16 at 09:00; Status DC Tamsulosin HCl (Flomax) 0.4 mg DAILY PO ; Start 07/25/16 at 09:00; Stop at 09:00; Status DC Dicyclomine HCl (Bentyl) 20 mg QID PO Last administered on 07/28/16 08:50; Start 07/24/16 at 23:15 Losartan Potassium (Cozaar) 100 mg DAILY PO Last administered on 07/28/16 08: 51; Start 07/25/16 at 09:00; Stop 07/28/16 at 10:48; Status DC Dutasteride (Avodart) 0.5 mg DAILY PO Last administered on 07/28/16 08:51; Start 07/24/16 at 23:15 Tamsulosin HCl (Flomax) 0.4 mg DAILY PO Last administered on 07/28/16 10:12; Start 07/24/16 at 23:15 Senna/Docusate Sodium (Senna Plus) 2 tab PRN BID PRN PO CONSTIPATION Last administered on 07/27/16 21:57; Start 07/26/16 at 08:45 Bisacodyl (Dulcolax Supp) 10 mg PRN DAILY PRN NE CONSTIPATION Last administered on 07/26/16 14:54; Start 07/26/16 at 10:15 Potassium Chloride 30 meq/ Sodium Chloride 1,015 ml @ 75 mls/hr [id number] IV Last administered on 07/27/16 05:45; Start 07/26/16 at 10:30; Stop 07/27/16 at 10:10; Status DC Bisacodyl (Dulcolax Supp) 10 mg PRN DAILY PRN NE CONSTIPATION; Start 07/26/16 at 10:15; Status Cancel Morphine Sulfate 1 mg PRN Q2HR PRN IV PAIN; Start 07/26/16 at 14:45 Bisacodyl (Dulcolax Supp) 10 mg PRN DAILY PRN NE CONSTIPATION; Start 07/26/16 at 14:45; Status Cancel Morphine Sulfate 2 mg PRN Q2HR PRN IV PAIN Last administered on 07/28/16 11:47 ; Start 07/26/16 at 15:00 Throat Lozenges (Chloraseptic) 1 spray PRN Q2HR PRN PO SORE THROAT; Start 07/26 at 19:45; Status UNV Throat Lozenges (Chloraseptic) 1 spray PRN Q2HR PRN PO SORE THROAT Last administered on 07/26/16 21:04; Start 07/26/16 at 20:00 Sodium Chloride 1,000 ml @ 100 mls/hr Q10H IV ; Start 07/27/16 at 10:30; Stop 07/27/16 at 12:32; Status DC Sodium Chloride 1,000 ml @ 100 mls/hr Q10H IV Last administered on 07/28/16 11:38; Start 07/27/16 at 14:00 Heparin Sodium (Porcine) (Heparin Sq) 5,000 unit Q8HRS SQ Last administered on 07/28/16 06:13; Start 07/27/16 at 14:00 Sodium Polystyrene Sulfonate (Kayexalate) 15 gm 1X ONCE PO Last administered on 07/28/16 11:37; Start 07/28/16 at 09:45; Stop 07/28/16 at 09:46; Status DC Active Scripts Active Famotidine 20 Mg Tablet 20 Mg PO BID Reported Dicyclomine Hcl 20 Mg Tablet 1 Tab PO QID Avodart (Dutasteride) 0.5 Mg Capsule 1 Cap PO DAILY Diovan (Valsartan) 160 Mg Tablet 160 Mg PO DAILY Tamsulosin Hcl 0.4 Mg Cap.er.24h 1 Cap PO DAILY Amlodipine Besylate 5 Mg Tablet 5 Mg PO DAILY Multiple Vitamin (Multivitamin With Minerals) 1 Each Tablet 1 Each PO DAILY [Vitamin B 12] DAILY Flaxseed (Flaxseed Oil) 1,000 Mg Capsule 1,000 Mg PO DAILY Toprol Xl (Metoprolol Succinate) 100 Mg Tab.er.24h 100 Mg PO BID Vitals/I & O Vital Sign - Last 24 Hours 07/27/16 07/27/16 07/27/16 07/27/16 15:00 17:16 19:53 20:00 Temp 97.4 97.9 97.4 97.9 Pulse 100 100 99 Resp 20 18 B/P (MAP) 143/90 (107) 143/90 150/83 (105) Pulse Ox 98 96 O2 Delivery Room Air Room Air Room Air 07/27/16 07/28/16 07/28/16 07/28/16 23:55 03:29 07:00 08:00 Temp 96.4 98.1 98.8 96.4 98.1 98.8 Pulse 92 91 94 Resp 18 18 18 B/P (MAP) 129/73 (91) 107/71 (83) 116/68 (84) Pulse Ox 98 98 99 O2 Delivery Room Air Room Air Room Air Room Air 07/28/16 07/28/16 07/28/16 07/28/16 08:15 08:50 08:51 08:51 Pulse 94 94 94 B/P (MAP) 116/68 116/68 116/68 O2 Delivery Room Air 07/28/16 07/28/16 07/28/16 11:00 11:47 12:19 Temp 98.3 98.3 Pulse 91 Resp 18 B/P (MAP) 132/76 (94) Pulse Ox 96 O2 Delivery Room Air Room Air Room Air Intake and Output 07/27/16 07/27/16 07/28/16 15:00 23:00 07:00 Intake Total 640 ml 1197 ml Output Total 1000 ml 675 ml Balance -360 ml 522 ml SINGH THURSTON MD Jul 28, 2016 13:23
--- NOTE | 2016-07-28 13:47 | PDOC ---
SURGICAL PROGRESS NOTE Subjective does not like clear liquid diet some nausea at times Vital Signs Vital Signs Date Time Temp Pulse Resp B/P (MAP) Pulse Ox O2 Delivery O2 Flow Rate FiO2 07/28/16 12:19 Room Air 07/28/16 11:00 98.3 91 18 132/76 (94) 96 98.3 I&O Intake and Output 07/28/16 07:00 Intake Total 1837 ml Output Total 1675 ml Balance 162 ml Intake Oral 840 ml Other 997 ml Output Urine Total 1675 ml # Bowel Movements 1 General: Alert, Oriented X3, Cooperative, No acute distress Abdomen: Soft, Other (incisional TTP) Labs Laboratory Tests Test 07/27/16 04:15 07/28/16 05:20 White Blood Count 14.8 x10^3/uL (4.0-11.0) 8.7 x10^3/uL (4.0-11.0) Red Blood Count 3.81 x10^6/uL (4.30-5.70) 3.56 x10^6/uL (4.30-5.70) Hemoglobin 11.0 g/dL (13.0-17.5) 10.4 g/dL (13.0-17.5) Hematocrit 34.9 % (39.0-53.0) 33.0 % (39.0-53.0) Mean Corpuscular Volume 92 fL (79-100) 93 fL (79-100) Mean Corpuscular Hemoglobin 29 pg (25-35) 29 pg (25-35) Mean Corpuscular Hemoglobin Concent 32 g/dL (31-37) 32 g/dL (31-37) Red Cell Distribution Width 13.6 % (11.5-14.5) 14.0 % (11.5-14.5) Platelet Count 182 x10^3/uL (140-400) 161 x10^3/uL (140-400) Neutrophils (%) (Auto) 90 % (31-73) 82 % (31-73) Lymphocytes (%) (Auto) 3 % (24-48) 3 % (24-48) Monocytes (%) (Auto) 7 % (0-9) 15 % (0-9) Eosinophils (%) (Auto) 0 % (0-3) 0 % (0-3) Basophils (%) (Auto) 0 % (0-3) 0 % (0-3) Neutrophils # (Auto) 13.3 x10^3uL (1.8-7.7) 7.1 x10^3uL (1.8-7.7) Lymphocytes # (Auto) 0.5 x10^3/uL (1.0-4.8) 0.2 x10^3/uL (1.0-4.8) Monocytes # (Auto) 1.1 x10^3/uL (0.0-1.1) 1.3 x10^3/uL (0.0-1.1) Eosinophils # (Auto) 0.0 x10^3/uL (0.0-0.7) 0.0 x10^3/uL (0.0-0.7) Basophils # (Auto) 0.0 x10^3/uL (0.0-0.2) 0.0 x10^3/uL (0.0-0.2) Segmented Neutrophils % 91 % (35-66) Band Neutrophils % 2 % (0-9) Lymphocytes % 2 % (24-48) Monocytes % 5 % (0-10) Platelet Estimate Adequate (ADEQUATE) Sodium Level 132 mmol/L (136-145) 134 mmol/L (136-145) Potassium Level 4.8 mmol/L (3.5-5.1) 5.2 mmol/L (3.5-5.1) Chloride Level 101 mmol/L (98-107) 105 mmol/L (98-107) Carbon Dioxide Level 18 mmol/L (21-32) 18 mmol/L (21-32) Anion Gap 13 (6-14) 11 (6-14) Blood Urea Nitrogen 28 mg/dL (8-26) 35 mg/dL (8-26) Creatinine 3.1 mg/dL (0.7-1.3) 3.1 mg/dL (0.7-1.3) Estimated GFR (Cockcroft-Gault) 23.5 23.5 Glucose Level 125 mg/dL (70-99) 110 mg/dL (70-99) Calcium Level 8.8 mg/dL (8.5-10.1) 8.2 mg/dL (8.5-10.1) Laboratory Tests Test 07/28/16 05:20 White Blood Count 8.7 x10^3/uL (4.0-11.0) Red Blood Count 3.56 x10^6/uL (4.30-5.70) Hemoglobin 10.4 g/dL (13.0-17.5) Hematocrit 33.0 % (39.0-53.0) Mean Corpuscular Volume 93 fL (79-100) Mean Corpuscular Hemoglobin 29 pg (25-35) Mean Corpuscular Hemoglobin Concent 32 g/dL (31-37) Red Cell Distribution Width 14.0 % (11.5-14.5) Platelet Count 161 x10^3/uL (140-400) Neutrophils (%) (Auto) 82 % (31-73) Lymphocytes (%) (Auto) 3 % (24-48) Monocytes (%) (Auto) 15 % (0-9) Eosinophils (%) (Auto) 0 % (0-3) Basophils (%) (Auto) 0 % (0-3) Neutrophils # (Auto) 7.1 x10^3uL (1.8-7.7) Lymphocytes # (Auto) 0.2 x10^3/uL (1.0-4.8) Monocytes # (Auto) 1.3 x10^3/uL (0.0-1.1) Eosinophils # (Auto) 0.0 x10^3/uL (0.0-0.7) Basophils # (Auto) 0.0 x10^3/uL (0.0-0.2) Sodium Level 134 mmol/L (136-145) Potassium Level 5.2 mmol/L (3.5-5.1) Chloride Level 105 mmol/L (98-107) Carbon Dioxide Level 18 mmol/L (21-32) Anion Gap 11 (6-14) Blood Urea Nitrogen 35 mg/dL (8-26) Creatinine 3.1 mg/dL (0.7-1.3) Estimated GFR (Cockcroft-Gault) 23.5 Glucose Level 110 mg/dL (70-99) Calcium Level 8.2 mg/dL (8.5-10.1) Problem List Problems Medical Problems: (1) Abdominal pain Status: Acute Assessment/Plan no acute surgical needs oncology following Problems: JOSE MCCOLLUM RUBBER DOWN Jul 28, 2016 13:47
--- NOTE | 2016-07-28 14:12 | PDOC ---
PROGRESS NOTES Subjective Subjective c/c - f/u of METASTATIC MUCINOUS ADENOCARCINOMA Objective Objective Vital Signs Date Time Temp Pulse Resp B/P (MAP) Pulse Ox O2 Delivery O2 Flow Rate FiO2 07/28/16 12:19 Room Air 07/28/16 11:00 98.3 91 18 132/76 (94) 96 98.3 07/26/16 14:54 2.0 Intake and Output 07/28/16 07:00 Intake Total 1837 ml Output Total 1675 ml Balance 162 ml Intake Oral 840 ml Other 997 ml Output Urine Total 1675 ml # Bowel Movements 1 Physical Exam Heart: Normal S1, Normal S2 General: Alert, Oriented X3 Lungs: Clear to auscultation Psych/Mental Status: Mental status NL Assessment Assessment Problems Medical Problems: (1) Abdominal pain Status: Acute IMPRESSION AND PLAN: 1. Abdominal carcinomatosis. The patient underwent diagnostic laparoscopy on 07/24/[address] Toby Cotter who noted evidence of carcinomatosis of the abdomen and ascites. Omental biopsies were performed and ascitic fluid was sent for cytology. I discussed the operative findings with the patient and family. I also discussed the concern for abdominal carcinomatosis, which is suggestive of stage IV malignancy. They understand and want to proceed with chemotherapy after work up for primary. 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 PATHOLOGY REPORT : Fibroadipose tissue, omental biopsy: - METASTATIC MUCINOUS ADENOCARCINOMA. SEE COMMENT. Some of the pools of mucin contain mucin-producing signet ring cells. The morphologic findings are supportive of the diagnosis of a metastatic mucinous adenocarcinoma. The most likely primary sites would include colon and rectum, and appendix. Appreciate GI follow-up and w/u for primary. He would need upper endoscopy and colonoscopy to evaluate for primary lesion. I d/w pt and family in detail. I d/w RN and I d/w [facility] from GI.. AFP normal at 3.8 on 07/24/16. CA 19-9 normal at 1 on 07/24/16. CEA elevated 25.9 on 07/24/16 2. Anemia, likely due to malignancy. Iron saturation is low, B12 and folic acid level are normal. 3. Bone lesions noted in the right iliac bone and L4 concerning for osseous metastatic disease. Bone scan on 07/27/16 is negative. 4. Staging CT scan of the chest 07/27/16 is neg for mets. Comment Review of Relevant I have reviewed the following items bishnu (where applicable) has been applied. Labs Laboratory Tests Test 07/27/16 04:15 07/28/16 05:20 White Blood Count 14.8 x10^3/uL (4.0-11.0) 8.7 x10^3/uL (4.0-11.0) Red Blood Count 3.81 x10^6/uL (4.30-5.70) 3.56 x10^6/uL (4.30-5.70) Hemoglobin 11.0 g/dL (13.0-17.5) 10.4 g/dL (13.0-17.5) Hematocrit 34.9 % (39.0-53.0) 33.0 % (39.0-53.0) Mean Corpuscular Volume 92 fL (79-100) 93 fL (79-100) Mean Corpuscular Hemoglobin 29 pg (25-35) 29 pg (25-35) Mean Corpuscular Hemoglobin Concent 32 g/dL (31-37) 32 g/dL (31-37) Red Cell Distribution Width 13.6 % (11.5-14.5) 14.0 % (11.5-14.5) Platelet Count 182 x10^3/uL (140-400) 161 x10^3/uL (140-400) Neutrophils (%) (Auto) 90 % (31-73) 82 % (31-73) Lymphocytes (%) (Auto) 3 % (24-48) 3 % (24-48) Monocytes (%) (Auto) 7 % (0-9) 15 % (0-9) Eosinophils (%) (Auto) 0 % (0-3) 0 % (0-3) Basophils (%) (Auto) 0 % (0-3) 0 % (0-3) Neutrophils # (Auto) 13.3 x10^3uL (1.8-7.7) 7.1 x10^3uL (1.8-7.7) Lymphocytes # (Auto) 0.5 x10^3/uL (1.0-4.8) 0.2 x10^3/uL (1.0-4.8) Monocytes # (Auto) 1.1 x10^3/uL (0.0-1.1) 1.3 x10^3/uL (0.0-1.1) Eosinophils # (Auto) 0.0 x10^3/uL (0.0-0.7) 0.0 x10^3/uL (0.0-0.7) Basophils # (Auto) 0.0 x10^3/uL (0.0-0.2) 0.0 x10^3/uL (0.0-0.2) Segmented Neutrophils % 91 % (35-66) Band Neutrophils % 2 % (0-9) Lymphocytes % 2 % (24-48) Monocytes % 5 % (0-10) Platelet Estimate Adequate (ADEQUATE) Sodium Level 132 mmol/L (136-145) 134 mmol/L (136-145) Potassium Level 4.8 mmol/L (3.5-5.1) 5.2 mmol/L (3.5-5.1) Chloride Level 101 mmol/L (98-107) 105 mmol/L (98-107) Carbon Dioxide Level 18 mmol/L (21-32) 18 mmol/L (21-32) Anion Gap 13 (6-14) 11 (6-14) Blood Urea Nitrogen 28 mg/dL (8-26) 35 mg/dL (8-26) Creatinine 3.1 mg/dL (0.7-1.3) 3.1 mg/dL (0.7-1.3) Estimated GFR (Cockcroft-Gault) 23.5 23.5 Glucose Level 125 mg/dL (70-99) 110 mg/dL (70-99) Calcium Level 8.8 mg/dL (8.5-10.1) 8.2 mg/dL (8.5-10.1) Laboratory Tests Test 07/28/16 05:20 White Blood Count 8.7 x10^3/uL (4.0-11.0) Red Blood Count 3.56 x10^6/uL (4.30-5.70) Hemoglobin 10.4 g/dL (13.0-17.5) Hematocrit 33.0 % (39.0-53.0) Mean Corpuscular Volume 93 fL (79-100) Mean Corpuscular Hemoglobin 29 pg (25-35) Mean Corpuscular Hemoglobin Concent 32 g/dL (31-37) Red Cell Distribution Width 14.0 % (11.5-14.5) Platelet Count 161 x10^3/uL (140-400) Neutrophils (%) (Auto) 82 % (31-73) Lymphocytes (%) (Auto) 3 % (24-48) Monocytes (%) (Auto) 15 % (0-9) Eosinophils (%) (Auto) 0 % (0-3) Basophils (%) (Auto) 0 % (0-3) Neutrophils # (Auto) 7.1 x10^3uL (1.8-7.7) Lymphocytes # (Auto) 0.2 x10^3/uL (1.0-4.8) Monocytes # (Auto) 1.3 x10^3/uL (0.0-1.1) Eosinophils # (Auto) 0.0 x10^3/uL (0.0-0.7) Basophils # (Auto) 0.0 x10^3/uL (0.0-0.2) Sodium Level 134 mmol/L (136-145) Potassium Level 5.2 mmol/L (3.5-5.1) Chloride Level 105 mmol/L (98-107) Carbon Dioxide Level 18 mmol/L (21-32) Anion Gap 11 (6-14) Blood Urea Nitrogen 35 mg/dL (8-26) Creatinine 3.1 mg/dL (0.7-1.3) Estimated GFR (Cockcroft-Gault) 23.5 Glucose Level 110 mg/dL (70-99) Calcium Level 8.2 mg/dL (8.5-10.1) Microbiology 07/23/16 Urine Culture - Final, Complete 07/23/16 Urine Culture Result 1 (TRUMAN) - Final, Complete Medications Current Medications Fentanyl Citrate (Fentanyl 2ml Vial) 25 mcg PRN Q15MIN PRN IV PAIN GREATER THAN 3/10 Last administered on 07/23/16t 19:35; Start 07/23/16 at 16:45; Stop 07/24 at 16:44; Status DC Ondansetron HCl (Zofran) 4 mg PRN Q8HRS PRN IV NAUSEA/VOMITING; Start 07/23/16 at 18:30; Stop 07/24/16 at 18:29; Status DC Fentanyl Citrate (Fentanyl 2ml Vial) 25 mcg PRN Q2HR PRN IV PAIN; Start at 18:30; Stop 07/23/16 at 19:32; Status DC Sodium Chloride 1,000 ml @ 75 mls/hr [id number] IV Last administered on 02:36; Start 07/23/16 at 19:15; Stop 07/27/16 at 10:10; Status DC Acetaminophen (Tylenol) 325 mg PRN Q6HRS PRN PO MILD PAIN / TEMP; Start at 19:15 Hydralazine HCl (Apresoline) 10 mg PRN Q4HRS PRN IVP ELEVATED BP, SEE COMMENTS Last administered on 07/27/16 17:16; Start 07/23/16 at 19:15 Ondansetron HCl (Zofran) 4 mg PRN Q8HRS PRN IV NAUSEA/VOMITING Last administered on 07/26/16 05:53; Start 07/23/16 at 19:15 Albuterol Sulfate (Ventolin Neb Soln) 2.5 mg PRN Q4HRS PRN NEB SHORTNESS OF BREATH; Start 07/23/16 at 19:15 Morphine Sulfate 2 mg PRN Q2HR PRN IV PAIN Last administered on 07/25/16 01:33 ; Start 07/23/16 at 19:30; Stop 07/25/16 at 16:25; Status DC Iohexol (Omnipaque 240 Mg/ml) 50 ml 1X ONCE PO Last administered on 07/23/16 19:56; Start 07/23/16 at 19:45; Stop 07/23/16 at 19:46; Status DC Info (Do NOT chart on this entry -- for MONITORING) 1 each PRN DAILY PRN MC SEE COMMENTS; Start 07/23/16 at 19:45; Stop 07/25/16 at 19:44; Status DC Cellulose 1 each STK-MED ONCE .ROUTE ; Start 07/24/16 at 08:11; Stop 07/24/16 at 08:12; Status DC Iohexol (Omnipaque 300 Mg/ml) 50 ml STK-MED ONCE .ROUTE ; Start 07/24/16 at 08:11 ; Stop 07/24/16 at 08:12; Status DC Bupivacaine HCl/ Epinephrine Bitart (Sensorcaine-Epi 0.25%-1:835769 Mpf) 30 ml STK-MED ONCE .ROUTE Last administered on 07/24/16t 11:10; Start 07/24/16 at 08:11 ; Stop 07/24/16 at 08:12; Status DC Cefazolin Sodium/ Dextrose 50 ml @ As Directed STK-MED ONCE IV ; Start 07/24/16 at 09:31; Stop 07/24/16 at 09:32; Status DC Famotidine (Pepcid) 20 mg STK-MED ONCE .ROUTE ; Start 07/24/16 at 10:35; Stop 07/24/16 at 10:36; Status DC Ondansetron HCl (Zofran) 4 mg STK-MED ONCE .ROUTE ; Start 07/24/16 at 10:35; Stop 07/24/16 at 10:36; Status DC Propofol 20 ml @ As Directed STK-MED ONCE IV ; Start 07/24/16 at 10:35; Stop 07/24 at 10:36; Status DC Lidocaine HCl (Lidocaine Pf 2% Vial) 5 ml STK-MED ONCE .ROUTE ; Start 07/24/16 at 10:35; Stop 07/24/16 at 10:36; Status DC Fentanyl Citrate (Fentanyl 2ml Vial) 100 mcg STK-MED ONCE .ROUTE ; Start at 10:35; Stop 07/24/16 at 10:36; Status DC Rocuronium [place] (Zemuron) 50 mg STK-MED ONCE .ROUTE ; Start 07/24/16 at 10:35 ; Stop 07/24/16 at 10:36; Status DC Pantoprazole Sodium (Protonix) 40 mg DAILYAC PO Last administered on 07/28/16t 06:12; Start 07/24/16 at 11:00 Glycopyrrolate (Robinul) 1 mg STK-MED ONCE .ROUTE ; Start 07/24/16 at 11:30; Stop 07/24/16 at 11:31; Status DC Neostigmine Methylsulfate 5 mg STK-MED ONCE .ROUTE ; Start 07/24/16 at 11:30; Stop 07/24/16 at 11:31; Status DC Desflurane (Suprane) 30 ml STK-MED ONCE IH ; Start 07/24/16 at 11:32; Stop at 11:33; Status DC Oxycodone/ Acetaminophen (Percocet 5/325) 1 tab PRN Q4HRS PRN PO PAIN Last administered on 07/24/16 21:50; Start 07/24/16 at 11:45; Stop 07/26/16 at 10:07; Status DC Oxycodone/ Acetaminophen (Percocet 5/325) 2 tab PRN Q4HRS PRN PO PAIN Last administered on 07/26/16 05:46; Start 07/24/16 at 11:45; Stop 07/26/16 at 10:07 ; Status DC Ondansetron HCl (Zofran) 4 mg PRN Q6HRS PRN IV NAUSEA/VOMITING; Start 07/24/16 at 12:00; Stop 07/25/16 at 11:59; Status DC Fentanyl Citrate (Fentanyl 2ml Vial) 25 mcg PRN Q5MIN PRN IV MILD PAIN; Start 07/24/16 at 12:00; Stop 07/25/16 at 11:59; Status DC Fentanyl Citrate (Fentanyl 2ml Vial) 50 mcg PRN Q5MIN PRN IV MODERATE PAIN Last administered on 07/24/16 12:26; Start 07/24/16 at 12:00; Stop 07/25/16 at 11 :59; Status DC Morphine Sulfate 1 mg PRN Q10MIN PRN IV SEVERE PAIN Last administered on 12:32; Start 07/24/16 at 12:00; Stop 07/25/16 at 11:59; Status DC Ringer's Solution 1,000 ml @ 0 mls/hr Q0M IV ; Start 07/24/16 at 11:56; Stop 07/24/16 at 23:55; Status DC Lidocaine HCl 2 ml PRN 1X PRN ID PRIOR TO IV START; Start 07/24/16 at 12:00; Stop 07/25/16 at 11:59; Status DC Hydromorphone HCl (Dilaudid) 0.5 mg PRN Q10MIN PRN IV SEV PAIN, Second choice; Start 07/24/16 at 12:00; Stop 07/25/16 at 11:59; Status DC Prochlorperazine Edisylate (Compazine) 5 mg PACU PRN PRN IV NAUSEA, MRX1; Start 07/24/16 at 12:00; Stop 07/25/16 at 11:59; Status DC Amlodipine Besylate (Norvasc) 5 mg DAILY PO Last administered on 07/28/16 08: 51; Start 07/24/16 at 14:00 Famotidine (Pepcid) 20 mg QHS PO Last administered on 07/27/16 21:57; Start at 21:00 Metoprolol Succinate (Toprol Xl) 100 mg BID PO Last administered on 07/28/16 08:50; Start 07/24/16 at 15:00 Dutasteride (Avodart) 0.5 mg DAILY PO ; Start 07/25/16 at 09:00; Stop 07/25/16 at 09:00; Status DC Tamsulosin HCl (Flomax) 0.4 mg DAILY PO ; Start 07/25/16 at 09:00; Stop at 09:00; Status DC Dicyclomine HCl (Bentyl) 20 mg QID PO Last administered on 07/28/16 13:42; Start 07/24/16 at 23:15 Losartan Potassium (Cozaar) 100 mg DAILY PO Last administered on 07/28/16 08: 51; Start 07/25/16 at 09:00; Stop 07/28/16 at 10:48; Status DC Dutasteride (Avodart) 0.5 mg DAILY PO Last administered on 07/28/16 08:51; Start 07/24/16 at 23:15 Tamsulosin HCl (Flomax) 0.4 mg DAILY PO Last administered on 07/28/16 10:12; Start 07/24/16 at 23:15 Senna/Docusate Sodium (Senna Plus) 2 tab PRN BID PRN PO CONSTIPATION Last administered on 07/27/16 21:57; Start 07/26/16 at 08:45 Bisacodyl (Dulcolax Supp) 10 mg PRN DAILY PRN ME CONSTIPATION Last administered on 07/26/16 14:54; Start 07/26/16 at 10:15 Potassium Chloride 30 meq/ Sodium Chloride 1,015 ml @ 75 mls/hr [id number] IV Last administered on 07/27/16 05:45; Start 07/26/16 at 10:30; Stop 07/27/16 at 10:10; Status DC Bisacodyl (Dulcolax Supp) 10 mg PRN DAILY PRN ME CONSTIPATION; Start 07/26/16 at 10:15; Status Cancel Morphine Sulfate 1 mg PRN Q2HR PRN IV PAIN; Start 07/26/16 at 14:45 Bisacodyl (Dulcolax Supp) 10 mg PRN DAILY PRN ME CONSTIPATION; Start 07/26/16 at 14:45; Status Cancel Morphine Sulfate 2 mg PRN Q2HR PRN IV PAIN Last administered on 07/28/16 11:47 ; Start 07/26/16 at 15:00 Throat Lozenges (Chloraseptic) 1 spray PRN Q2HR PRN PO SORE THROAT; Start 07/26 at 19:45; Status UNV Throat Lozenges (Chloraseptic) 1 spray PRN Q2HR PRN PO SORE THROAT Last administered on 07/26/16 21:04; Start 07/26/16 at 20:00 Sodium Chloride 1,000 ml @ 100 mls/hr Q10H IV ; Start 07/27/16 at 10:30; Stop 07/27/16 at 12:32; Status DC Sodium Chloride 1,000 ml @ 100 mls/hr Q10H IV Last administered on 07/28/16 11:38; Start 07/27/16 at 14:00 Heparin Sodium (Porcine) (Heparin Sq) 5,000 unit Q8HRS SQ Last administered on 07/28/16 13:44; Start 07/27/16 at 14:00 Sodium Polystyrene Sulfonate (Kayexalate) 15 gm 1X ONCE PO Last administered on 07/28/16 11:37; Start 07/28/16 at 09:45; Stop 07/28/16 at 09:46; Status DC Active Scripts Active Famotidine 20 Mg Tablet 20 Mg PO BID Reported Dicyclomine Hcl 20 Mg Tablet 1 Tab PO QID Avodart (Dutasteride) 0.5 Mg Capsule 1 Cap PO DAILY Diovan (Valsartan) 160 Mg Tablet 160 Mg PO DAILY Tamsulosin Hcl 0.4 Mg Cap.er.24h 1 Cap PO DAILY Amlodipine Besylate 5 Mg Tablet 5 Mg PO DAILY Multiple Vitamin (Multivitamin With Minerals) 1 Each Tablet 1 Each PO DAILY [Vitamin B 12] DAILY Flaxseed (Flaxseed Oil) 1,000 Mg Capsule 1,000 Mg PO DAILY Toprol Xl (Metoprolol Succinate) 100 Mg Tab.er.24h 100 Mg PO BID Vitals/I & O Vital Sign - Last 24 Hours 07/27/16 07/27/16 07/27/16 07/27/16 15:00 17:16 19:53 20:00 Temp 97.4 97.9 97.4 97.9 Pulse 100 100 99 Resp 20 18 B/P (MAP) 143/90 (107) 143/90 150/83 (105) Pulse Ox 98 96 O2 Delivery Room Air Room Air Room Air 07/27/16 07/28/16 07/28/16 07/28/16 23:55 03:29 07:00 08:00 Temp 96.4 98.1 98.8 96.4 98.1 98.8 Pulse 92 91 94 Resp 18 18 18 B/P (MAP) 129/73 (91) 107/71 (83) 116/68 (84) Pulse Ox 98 98 99 O2 Delivery Room Air Room Air Room Air Room Air 07/28/16 07/28/16 07/28/16 07/28/16 08:15 08:50 08:51 08:51 Pulse 94 94 94 B/P (MAP) 116/68 116/68 116/68 O2 Delivery Room Air 07/28/16 07/28/16 07/28/16 11:00 11:47 12:19 Temp 98.3 98.3 Pulse 91 Resp 18 B/P (MAP) 132/76 (94) Pulse Ox 96 O2 Delivery Room Air Room Air Room Air Intake and Output 07/27/16 07/27/16 07/28/16 15:00 23:00 07:00 Intake Total 640 ml 1197 ml Output Total 1000 ml 675 ml Balance -360 ml 522 ml YU JIMENEZ MD Jul 28, 2016 14:12
[2016-07-28 15:00] VITALS: BP 125/70
[2016-07-28] MEDS: BISACODYL 10 MG SUPP.RECT. PR PRN (18:03)
[2016-07-28 19:50] VITALS: BP 129/74
[2016-07-28] MEDS: FAMOTIDINE 20 MG TABLET. PO SCH (21:36)
[2016-07-28] MEDS: SENNOSIDES/DOCUSATE 8.6/50MG TABLET. PO PRN (21:36)
[2016-07-28 23:15] VITALS: BP 134/80
[2016-07-28] MEDS: ONDANSETRON PF 4 MG/2 ML VIAL. IV PRN (23:42)
[2016-07-29] MEDS: MORPHINE SULFATE 2 MG/ML DISP.SYRIN. IV PRN ×5 (01:20→22:15)
[2016-07-29 03:52] VITALS: BP 150/54
[2016-07-29] MEDS: HEPARIN PF for SUB-Q USE 5,000 UNIT/0.5 ML VIAL. SQ SCH ×3 (06:37→21:38)
[2016-07-29 07:00] VITALS: BP 129/75
[2016-07-29 07:38] LABS: CALCIUM 8.3 mg/dL (8.5-10.1); CREATININE 2.6 mg/dL (0.7-1.3); GFR 28.7; POTASSIUM 4.9 mmol/L (3.5-5.1)
[2016-07-29] MEDS: IV NORMAL SALINE 1000ML BAG 1,000 ML IV SCH ×2 (07:47→09:42)
[2016-07-29] MEDS: ONDANSETRON PF 4 MG/2 ML VIAL. IV PRN ×2 (08:43→22:14)
[2016-07-29] MEDS: DUTASTERIDE 0.5 MG CAPSULE PO SCH (08:47)
[2016-07-29] MEDS: PANTOPRAZOLE 40 MG TABLET.DR. PO SCH (08:47)
[2016-07-29] MEDS: TAMSULOSIN 0.4 MG CAP.ER.24H. PO SCH (08:48)
[2016-07-29] MEDS: amLODIPine BESYLATE 5 MG TABLET PO SCH (08:48)
[2016-07-29] MEDS: METOPROLOL SUCC 24HR ER 100 MG TAB.ER.24H. PO SCH ×2 (08:48→20:51)
[2016-07-29] MEDS: DICYCLOMINE HCL 10 MG CAPSULE PO SCH ×5 (08:48→20:51)
[2016-07-29 11:00] VITALS: BP 148/80
--- NOTE | 2016-07-29 11:23 | PDOC ---
Renal-Progress Notes Subjective Notes Notes SOME ABD BLOATING History of Present Illness Hx of present illness STABLE Vitals Vitals Vital Signs Date Time Temp Pulse Resp B/P (MAP) Pulse Ox O2 Delivery O2 Flow Rate FiO2 07/29/16 11:00 97.7 74 18 148/80 (102) 96 Room Air 97.7 07/28/16 20:00 2.0 Weight Weight [ ] I.O. Intake and Output Intake and Output 07/29/16 07:00 Output Total 1025 ml Balance -1025 ml Output Urine Total 975 ml Oral Regurgitation 50 ml Labs Labs Laboratory Tests Test 07/29/16 07:15 Sodium Level 135 mmol/L (136-145) Potassium Level 4.9 mmol/L (3.5-5.1) Chloride Level 105 mmol/L (98-107) Carbon Dioxide Level 20 mmol/L (21-32) Anion Gap 10 (6-14) Blood Urea Nitrogen 36 mg/dL (8-26) Creatinine 2.6 mg/dL (0.7-1.3) Estimated GFR (Cockcroft-Gault) 28.7 Glucose Level 112 mg/dL (70-99) Calcium Level 8.3 mg/dL (8.5-10.1) Micro Micro Microbiology 07/23/16 Urine Culture - Final, Complete 07/23/16 Urine Culture Result 1 (TRUMAN) - Final, Complete Review of Systems Constitutional: yes: malaise, weakness, alert, oriented Ears/Nose/Throat: Yes: no symptom reported Pulmonary: Yes no symptom reported Gastrointestional: Yes: abdominal pain Genitourinary: Yes: retention Musculoskeletal: Yes: muscle stiffness Skin: Yes no symptom reported Physical Exam General Appearance: no apparent distress Skin: warm Respiratory: bilateral CTA Abdomen: bowel sounds present, distension Extremities: no edema Neurology: alert, oriented Assessment Assessment IMP ARMANDO BETTER WITH CR DOWN TO 2.6 PROB CKD URINARY RETENTION BPH ABD CARCINOMATOSIS COMPLEX RIGHT RENAL CYST PLAN CONT WITH FLOMAX MAINTAIN ESTEVEZ ONC EVAL AND TX CONT WITH IVF'S LABS IN AM ESTEPHANIA NATHAN MD Jul 29, 2016 11:23
--- NOTE | 2016-07-29 12:08 | PDOC ---
PROGRESS NOTES Chief Complaint Chief Complaint Cholecystitis ASSESSMENT AND PLAN: 1. Cholecystitis: s/p surgery with findings of carcinomatosis, 2. Metast CA, path METASTATIC MUCINOUS ADENOCARCINOMA 3. HTN 4. ARMANDO, obstructive nephropathy likely 5. Constipation (vs ileus) 6. Ascites: 2/2 malignancy 7. BPH talked to sx, and explained to family for 10min, will get PAT consult, chest CT and bone scan all neg for mets may need EGD/COLOnoscopy as per GI. add NS 100cc/h for ARMANDO, on armando, BMP daily clear liquid diet image showed BPH, and possible left ureter obstruction, renal consulted. would like to get uro consult too, however, the only urologist in this hosp Dr. Varner wont return till 08/06. keep armando and ivf for now. on BPH meds. KUB today for possible bowel obstruction, would like to talk to GI AND ONCO and see if need paracentesis again with IR. History of Present Illness History of Present Illness has BM on 07/27 vomited 07/29, more abd distension on 07/29. armando since 07/28, Cr better 07/29 family asked again if ascites was removed by sx 3ds ago, and i told her yes. daughter wants to do EGD AND COlonoscopy and chemo. Vitals Vitals Vital Signs Date Time Temp Pulse Resp B/P (MAP) Pulse Ox O2 Delivery O2 Flow Rate FiO2 07/29/16 11:00 97.7 74 18 148/80 (102) 96 Room Air 97.7 07/28/16 20:00 2.0 Physical Exam General: Alert, Oriented X3 Heart: Normal S1, Normal S2 Lungs: Clear Abdomen: Soft, Other (incisional TTP. moderate distended abd, with moderate tenderness) Extremities: No cyanosis, Other (mild clubbing) Skin: No rashes, No significant lesion Labs LABS Laboratory Tests Test 07/29/16 07:15 Sodium Level 135 mmol/L (136-145) Potassium Level 4.9 mmol/L (3.5-5.1) Chloride Level 105 mmol/L (98-107) Carbon Dioxide Level 20 mmol/L (21-32) Anion Gap 10 (6-14) Blood Urea Nitrogen 36 mg/dL (8-26) Creatinine 2.6 mg/dL (0.7-1.3) Estimated GFR (Cockcroft-Gault) 28.7 Glucose Level 112 mg/dL (70-99) Calcium Level 8.3 mg/dL (8.5-10.1) Review of Systems Review of Systems no fever, chills, sob or chest pain Assessment and Plan Assessmemt and Plan Problems Medical Problems: (1) Abdominal pain Status: Acute Problems: Comment Review of Relevant I have reviewed the following items bishnu (where applicable) has been applied. Labs Laboratory Tests Test 07/28/16 05:20 07/29/16 07:15 White Blood Count 8.7 x10^3/uL (4.0-11.0) Red Blood Count 3.56 x10^6/uL (4.30-5.70) Hemoglobin 10.4 g/dL (13.0-17.5) Hematocrit 33.0 % (39.0-53.0) Mean Corpuscular Volume 93 fL (79-100) Mean Corpuscular Hemoglobin 29 pg (25-35) Mean Corpuscular Hemoglobin Concent 32 g/dL (31-37) Red Cell Distribution Width 14.0 % (11.5-14.5) Platelet Count 161 x10^3/uL (140-400) Neutrophils (%) (Auto) 82 % (31-73) Lymphocytes (%) (Auto) 3 % (24-48) Monocytes (%) (Auto) 15 % (0-9) Eosinophils (%) (Auto) 0 % (0-3) Basophils (%) (Auto) 0 % (0-3) Neutrophils # (Auto) 7.1 x10^3uL (1.8-7.7) Lymphocytes # (Auto) 0.2 x10^3/uL (1.0-4.8) Monocytes # (Auto) 1.3 x10^3/uL (0.0-1.1) Eosinophils # (Auto) 0.0 x10^3/uL (0.0-0.7) Basophils # (Auto) 0.0 x10^3/uL (0.0-0.2) Sodium Level 134 mmol/L (136-145) 135 mmol/L (136-145) Potassium Level 5.2 mmol/L (3.5-5.1) 4.9 mmol/L (3.5-5.1) Chloride Level 105 mmol/L (98-107) 105 mmol/L (98-107) Carbon Dioxide Level 18 mmol/L (21-32) 20 mmol/L (21-32) Anion Gap 11 (6-14) 10 (6-14) Blood Urea Nitrogen 35 mg/dL (8-26) 36 mg/dL (8-26) Creatinine 3.1 mg/dL (0.7-1.3) 2.6 mg/dL (0.7-1.3) Estimated GFR (Cockcroft-Gault) 23.5 28.7 Glucose Level 110 mg/dL (70-99) 112 mg/dL (70-99) Calcium Level 8.2 mg/dL (8.5-10.1) 8.3 mg/dL (8.5-10.1) Laboratory Tests Test 07/29/16 07:15 Sodium Level 135 mmol/L (136-145) Potassium Level 4.9 mmol/L (3.5-5.1) Chloride Level 105 mmol/L (98-107) Carbon Dioxide Level 20 mmol/L (21-32) Anion Gap 10 (6-14) Blood Urea Nitrogen 36 mg/dL (8-26) Creatinine 2.6 mg/dL (0.7-1.3) Estimated GFR (Cockcroft-Gault) 28.7 Glucose Level 112 mg/dL (70-99) Calcium Level 8.3 mg/dL (8.5-10.1) Microbiology 07/23/16 Urine Culture - Final, Complete 07/23/16 Urine Culture Result 1 (TRUMAN) - Final, Complete Medications Current Medications Fentanyl Citrate (Fentanyl 2ml Vial) 25 mcg PRN Q15MIN PRN IV PAIN GREATER THAN 3/10 Last administered on 07/23/16t 19:35; Start 07/23/16 at 16:45; Stop 07/24 at 16:44; Status DC Ondansetron HCl (Zofran) 4 mg PRN Q8HRS PRN IV NAUSEA/VOMITING; Start 07/23/16 at 18:30; Stop 07/24/16 at 18:29; Status DC Fentanyl Citrate (Fentanyl 2ml Vial) 25 mcg PRN Q2HR PRN IV PAIN; Start at 18:30; Stop 07/23/16 at 19:32; Status DC Sodium Chloride 1,000 ml @ 75 mls/hr [id number] IV Last administered on 02:36; Start 07/23/16 at 19:15; Stop 07/27/16 at 10:10; Status DC Acetaminophen (Tylenol) 325 mg PRN Q6HRS PRN PO MILD PAIN / TEMP; Start at 19:15 Hydralazine HCl (Apresoline) 10 mg PRN Q4HRS PRN IVP ELEVATED BP, SEE COMMENTS Last administered on 07/27/16 17:16; Start 07/23/16 at 19:15 Ondansetron HCl (Zofran) 4 mg PRN Q8HRS PRN IV NAUSEA/VOMITING Last administered on 07/29/16 08:43; Start 07/23/16 at 19:15 Albuterol Sulfate (Ventolin Neb Soln) 2.5 mg PRN Q4HRS PRN NEB SHORTNESS OF BREATH; Start 07/23/16 at 19:15 Morphine Sulfate 2 mg PRN Q2HR PRN IV PAIN Last administered on 07/25/16 01:33 ; Start 07/23/16 at 19:30; Stop 07/25/16 at 16:25; Status DC Iohexol (Omnipaque 240 Mg/ml) 50 ml 1X ONCE PO Last administered on 07/23/16 19:56; Start 07/23/16 at 19:45; Stop 07/23/16 at 19:46; Status DC Info (Do NOT chart on this entry -- for MONITORING) 1 each PRN DAILY PRN MC SEE COMMENTS; Start 07/23/16 at 19:45; Stop 07/25/16 at 19:44; Status DC Cellulose 1 each STK-MED ONCE .ROUTE ; Start 07/24/16 at 08:11; Stop 07/24/16 at 08:12; Status DC Iohexol (Omnipaque 300 Mg/ml) 50 ml STK-MED ONCE .ROUTE ; Start 07/24/16 at 08:11 ; Stop 07/24/16 at 08:12; Status DC Bupivacaine HCl/ Epinephrine Bitart (Sensorcaine-Epi 0.25%-1:[id number] Mpf) 30 ml STK-MED ONCE .ROUTE Last administered on 07/24/16 11:10; Start 07/24/16 at 08:11 ; Stop 07/24/16 at 08:12; Status DC Cefazolin Sodium/ Dextrose 50 ml @ As Directed STK-MED ONCE IV ; Start 07/24/16 at 09:31; Stop 07/24/16 at 09:32; Status DC Famotidine (Pepcid) 20 mg STK-MED ONCE .ROUTE ; Start 07/24/16 at 10:35; Stop 07/24/16 at 10:36; Status DC Ondansetron HCl (Zofran) 4 mg STK-MED ONCE .ROUTE ; Start 07/24/16 at 10:35; Stop 07/24/16 at 10:36; Status DC Propofol 20 ml @ As Directed STK-MED ONCE IV ; Start 07/24/16 at 10:35; Stop 07/24 at 10:36; Status DC Lidocaine HCl (Lidocaine Pf 2% Vial) 5 ml STK-MED ONCE .ROUTE ; Start 07/24/16 at 10:35; Stop 07/24/16 at 10:36; Status DC Fentanyl Citrate (Fentanyl 2ml Vial) 100 mcg STK-MED ONCE .ROUTE ; Start at 10:35; Stop 07/24/16 at 10:36; Status DC Rocuronium [place] (Zemuron) 50 mg STK-MED ONCE .ROUTE ; Start 07/24/16 at 10:35 ; Stop 07/24/16 at 10:36; Status DC Pantoprazole Sodium (Protonix) 40 mg DAILYAC PO Last administered on 07/28/16t 06:12; Start 07/24/16 at 11:00 Glycopyrrolate (Robinul) 1 mg STK-MED ONCE .ROUTE ; Start 07/24/16 at 11:30; Stop 07/24/16 at 11:31; Status DC Neostigmine Methylsulfate 5 mg STK-MED ONCE .ROUTE ; Start 07/24/16 at 11:30; Stop 07/24/16 at 11:31; Status DC Desflurane (Suprane) 30 ml STK-MED ONCE IH ; Start 07/24/16 at 11:32; Stop at 11:33; Status DC Oxycodone/ Acetaminophen (Percocet 5/325) 1 tab PRN Q4HRS PRN PO PAIN Last administered on 07/24/16 21:50; Start 07/24/16 at 11:45; Stop 07/26/16 at 10:07; Status DC Oxycodone/ Acetaminophen (Percocet 5/325) 2 tab PRN Q4HRS PRN PO PAIN Last administered on 07/26/16 05:46; Start 07/24/16 at 11:45; Stop 07/26/16 at 10:07 ; Status DC Ondansetron HCl (Zofran) 4 mg PRN Q6HRS PRN IV NAUSEA/VOMITING; Start 07/24/16 at 12:00; Stop 07/25/16 at 11:59; Status DC Fentanyl Citrate (Fentanyl 2ml Vial) 25 mcg PRN Q5MIN PRN IV MILD PAIN; Start 07/24/16 at 12:00; Stop 07/25/16 at 11:59; Status DC Fentanyl Citrate (Fentanyl 2ml Vial) 50 mcg PRN Q5MIN PRN IV MODERATE PAIN Last administered on 07/24/16 12:26; Start 07/24/16 at 12:00; Stop 07/25/16 at 11 :59; Status DC Morphine Sulfate 1 mg PRN Q10MIN PRN IV SEVERE PAIN Last administered on 12:32; Start 07/24/16 at 12:00; Stop 07/25/16 at 11:59; Status DC Ringer's Solution 1,000 ml @ 0 mls/hr Q0M IV ; Start 07/24/16 at 11:56; Stop 07/24/16 at 23:55; Status DC Lidocaine HCl 2 ml PRN 1X PRN ID PRIOR TO IV START; Start 07/24/16 at 12:00; Stop 07/25/16 at 11:59; Status DC Hydromorphone HCl (Dilaudid) 0.5 mg PRN Q10MIN PRN IV SEV PAIN, Second choice; Start 07/24/16 at 12:00; Stop 07/25/16 at 11:59; Status DC Prochlorperazine Edisylate (Compazine) 5 mg PACU PRN PRN IV NAUSEA, MRX1; Start 07/24/16 at 12:00; Stop 07/25/16 at 11:59; Status DC Amlodipine Besylate (Norvasc) 5 mg DAILY PO Last administered on 07/28/16 08: 51; Start 07/24/16 at 14:00 Famotidine (Pepcid) 20 mg QHS PO Last administered on 07/28/16 21:36; Start at 21:00 Metoprolol Succinate (Toprol Xl) 100 mg BID PO Last administered on 07/28/16 21:37; Start 07/24/16 at 15:00 Dutasteride (Avodart) 0.5 mg DAILY PO ; Start 07/25/16 at 09:00; Stop 07/25/16 at 09:00; Status DC Tamsulosin HCl (Flomax) 0.4 mg DAILY PO ; Start 07/25/16 at 09:00; Stop at 09:00; Status DC Dicyclomine HCl (Bentyl) 20 mg QID PO Last administered on 07/28/16 21:36; Start 07/24/16 at 23:15 Losartan Potassium (Cozaar) 100 mg DAILY PO Last administered on 07/28/16 08: 51; Start 07/25/16 at 09:00; Stop 07/28/16 at 10:48; Status DC Dutasteride (Avodart) 0.5 mg DAILY PO Last administered on 07/28/16 08:51; Start 07/24/16 at 23:15 Tamsulosin HCl (Flomax) 0.4 mg DAILY PO Last administered on 07/28/16 10:12; Start 07/24/16 at 23:15 Senna/Docusate Sodium (Senna Plus) 2 tab PRN BID PRN PO CONSTIPATION Last administered on 07/28/16 21:36; Start 07/26/16 at 08:45 Bisacodyl (Dulcolax Supp) 10 mg PRN DAILY PRN ME CONSTIPATION Last administered on 07/28/16 18:03; Start 07/26/16 at 10:15 Potassium Chloride 30 meq/ Sodium Chloride 1,015 ml @ 75 mls/hr [id number] IV Last administered on 07/27/16 05:45; Start 07/26/16 at 10:30; Stop 07/27/16 at 10:10; Status DC Bisacodyl (Dulcolax Supp) 10 mg PRN DAILY PRN ME CONSTIPATION; Start 07/26/16 at 10:15; Status Cancel Morphine Sulfate 1 mg PRN Q2HR PRN IV PAIN; Start 07/26/16 at 14:45; Stop 07/28 at 15:48; Status DC Bisacodyl (Dulcolax Supp) 10 mg PRN DAILY PRN ME CONSTIPATION; Start 07/26/16 at 14:45; Status Cancel Morphine Sulfate 2 mg PRN Q2HR PRN IV PAIN Last administered on 07/29/16 08:43 ; Start 07/26/16 at 15:00 Throat Lozenges (Chloraseptic) 1 spray PRN Q2HR PRN PO SORE THROAT; Start 07/26 at 19:45; Status UNV Throat Lozenges (Chloraseptic) 1 spray PRN Q2HR PRN PO SORE THROAT Last administered on 07/26/16 21:04; Start 07/26/16 at 20:00 Sodium Chloride 1,000 ml @ 100 mls/hr Q10H IV ; Start 07/27/16 at 10:30; Stop 07/27/16 at 12:32; Status DC Sodium Chloride 1,000 ml @ 100 mls/hr Q10H IV Last administered on 07/29/16 09:42; Start 07/27/16 at 14:00 Heparin Sodium (Porcine) (Heparin Sq) 5,000 unit Q8HRS SQ Last administered on 07/29/16 06:37; Start 07/27/16 at 14:00 Sodium Polystyrene Sulfonate (Kayexalate) 15 gm 1X ONCE PO Last administered on 07/28/16 11:37; Start 07/28/16 at 09:45; Stop 07/28/16 at 09:46; Status DC Active Scripts Active Famotidine 20 Mg Tablet 20 Mg PO BID Reported Dicyclomine Hcl 20 Mg Tablet 1 Tab PO QID Avodart (Dutasteride) 0.5 Mg Capsule 1 Cap PO DAILY Diovan (Valsartan) 160 Mg Tablet 160 Mg PO DAILY Tamsulosin Hcl 0.4 Mg Cap.er.24h 1 Cap PO DAILY Amlodipine Besylate 5 Mg Tablet 5 Mg PO DAILY Multiple Vitamin (Multivitamin With Minerals) 1 Each Tablet 1 Each PO DAILY [Vitamin B 12] DAILY Flaxseed (Flaxseed Oil) 1,000 Mg Capsule 1,000 Mg PO DAILY Toprol Xl (Metoprolol Succinate) 100 Mg Tab.er.24h 100 Mg PO BID Vitals/I & O Vital Sign - Last 24 Hours 07/28/16 07/28/16 07/28/16 07/28/16 15:00 17:11 19:50 20:00 Temp 98.1 97.9 98.1 97.9 Pulse 94 86 Resp 18 18 20 B/P (MAP) 125/70 (88) 129/74 (92) Pulse Ox 96 97 96 O2 Delivery Room Air Room Air Room Air Room Air O2 Flow Rate 2.0 07/28/16 07/28/16 07/28/16 07/29/16 20:00 21:37 23:15 01:20 Temp 97.9 97.9 Pulse 86 82 Resp 18 20 B/P (MAP) 129/74 134/80 (98) Pulse Ox 98 98 O2 Delivery Room Air Room Air Room Air 07/29/16 07/29/16 07/29/16 07/29/16 03:45 03:52 04:15 07:00 Temp 97.9 98.4 97.9 98.4 Pulse 89 87 Resp 20 18 20 18 B/P (MAP) 150/54 (86) 129/75 (93) Pulse Ox 98 95 94 95 O2 Delivery Room Air Room Air Room Air 07/29/16 07/29/16 07/29/16 07/29/16 07:45 08:43 08:48 08:48 Pulse 87 87 B/P (MAP) 129/75 129/75 O2 Delivery Room Air Room Air 07/29/16 07/29/16 09:30 11:00 Temp 97.7 97.7 Pulse 74 Resp 18 B/P (MAP) 148/80 (102) Pulse Ox 96 O2 Delivery Room Air Room Air Intake and Output 07/28/16 07/28/16 07/29/16 15:00 23:00 07:00 Output Total 600 ml 425 ml Balance -600 ml -425 ml Nutrition Consultation Dietary Evaluation: Recommendations by RD: PPN/TPN Expected Outcomes/Goals: to meet > 50% est nutr needs Malnutrition Findings: Food and Nutrition Intake (Sev: <50% est energy req 5days Weight Status: Appropriate Fluid Accumulation (Non-Severe: Mild depletion SINGH THURSTON MD Jul 29, 2016 12:08
--- NOTE | 2016-07-29 12:47 | PDOC ---
Subjective: Subjective: Daughter feels distention related to improper positioning of catheter yesterday , says fixed now. Had some upper pain yesterday, felt like food wasn't going down, vomited several times. Daughter says was told safe to proceed w/ EGD and colonoscopy because Cr better. Wants to know why he's vomiting, why he's distended. Objective: Objective: Per RN - vomiting, increased abd distention, back to NPO, KUB ordered. Family still asking questions about timing of EGD/colonoscopy. Vital Signs: Vital Signs Date Time Temp Pulse Resp B/P (MAP) Pulse Ox O2 Delivery O2 Flow Rate FiO2 07/29/16 11:00 97.7 74 18 148/80 (102) 96 Room Air 97.7 07/28/16 20:00 2.0 Labs: Laboratory Tests Test 07/29/16 07:15 Sodium Level 135 mmol/L Potassium Level 4.9 mmol/L Chloride Level 105 mmol/L Carbon Dioxide Level 20 mmol/L Anion Gap 10 Blood Urea Nitrogen 36 mg/dL Creatinine 2.6 mg/dL Estimated GFR (Cockcroft-Gault) 28.7 Glucose Level 112 mg/dL Calcium Level 8.3 mg/dL PE: GEN: in recliner LUNGS: clear HEART: S1S2 ABD: more distended, BS+ NEURO/PSYCH: A & O 3 A/P: Abdominal carcinomatosis -s/p diagnostic lap 07/24/16, path suggestive of GI origin ARMANDO/CKD, urinary retention -Cr from 3.1 to 2.6, still has Enamorado -note urology consult for ?obstruction on bone scan Vomiting, abd distention -- KUB ordered, await this. Agree w/ NPO, might need to consider replacing NG. Again, I spent a significant amount of time talking w/ his daughter re: Dr. Reza's plans to monitor renal function before proceeding w/ EGD and colonoscopy. Additionally, couldn't prep for colonoscopy now w/ vomiting. Palliative care to see. DENISSE HUERTA Jul 29, 2016 12:47
[2016-07-29] MEDS: AMINO AC 3%/ELECTROLYTE/GLYCER 1,000 ML IV SCH (14:36)
[2016-07-29 15:00] VITALS: BP 140/82
--- NOTE | 2016-07-29 15:03 | RAD ---
CHIVO, 07/29/2016: History: Small bowel obstruction Comparison is made to a study from 07/26/2016. There is mild gaseous distention of several small bowel loops in the midabdomen. The colon is not distended. It contains residual contrast from previous diagnostic study and a small amount of gas. There is no evidence of organomegaly. Moderate multilevel degenerative changes are present in the spine. IMPRESSION: Mild gaseous distention of several small bowel loops in the midabdomen suggesting partial small bowel obstruction versus a mild ileus.
[2016-07-29 19:00] VITALS: BP 140/75
[2016-07-29] MEDS: FAMOTIDINE 20 MG TABLET. PO SCH (20:51)
[2016-07-29 23:36] VITALS: BP 137/76
[2016-07-30] MEDS: AMINO AC 3%/ELECTROLYTE/GLYCER 1,000 ML IV SCH (02:04)
[2016-07-30 03:00] VITALS: BP 134/79
[2016-07-30 05:38] LABS: CREATININE 2.4 mg/dL (0.7-1.3); GFR 31.5; POTASSIUM 5.2 mmol/L (3.5-5.1)
[2016-07-30] MEDS: HEPARIN PF for SUB-Q USE 5,000 UNIT/0.5 ML VIAL. SQ SCH ×3 (06:30→21:30)
[2016-07-30 07:00] VITALS: BP 142/69
[2016-07-30] MEDS: PANTOPRAZOLE 40 MG TABLET.DR. PO SCH (07:46)
[2016-07-30] MEDS: PANTOPRAZOLE IV PUSH 40 MG VIAL. IVP SCH (08:03)
[2016-07-30] MEDS: MORPHINE SULFATE 2 MG/ML DISP.SYRIN. IV PRN (08:03)
[2016-07-30] MEDS: DUTASTERIDE 0.5 MG CAPSULE PO SCH (08:53)
[2016-07-30] MEDS: DICYCLOMINE HCL 10 MG CAPSULE PO SCH ×4 (08:53→19:28)
[2016-07-30] MEDS: amLODIPine BESYLATE 5 MG TABLET PO SCH (08:53)
[2016-07-30] MEDS: METOPROLOL SUCC 24HR ER 100 MG TAB.ER.24H. PO SCH ×2 (08:53→19:29)
[2016-07-30] MEDS: TAMSULOSIN 0.4 MG CAP.ER.24H. PO SCH (08:53)
[2016-07-30] MEDS: IV NORMAL SALINE 1000ML BAG 1,000 ML IV SCH ×2 (09:49→19:22)
[2016-07-30 11:00] VITALS: BP 141/72
--- NOTE | 2016-07-30 11:12 | PDOC ---
Subjective: Subjective: Some nausea. Passing a little gas, small BM yesterday. No vomiting. Objective: Objective: D/w Dr. Reza this morning. If distention/vomiting continue, consider EGD tomorrow a.m. Would be unable to prep for colonoscopy. Cr 3.1 to 2.6 to 2.4. Per RN - daughter/family request [facility] transfer, has been accepted. Vital Signs: Vital Signs Date Time Temp Pulse Resp B/P (MAP) Pulse Ox O2 Delivery O2 Flow Rate FiO2 07/30/16 09:49 Room Air 07/30/16 07:00 99.7 80 22 142/69 (93) 96 99.7 Labs: Laboratory Tests Test 07/30/16 04:20 Sodium Level 135 mmol/L Potassium Level 5.2 mmol/L Chloride Level 104 mmol/L Carbon Dioxide Level 20 mmol/L Anion Gap 11 Blood Urea Nitrogen 39 mg/dL Creatinine 2.4 mg/dL Estimated GFR (Cockcroft-Gault) 31.5 Glucose Level 100 mg/dL Calcium Level 8.0 mg/dL PE: GEN: NAD ABD: distended/tight, BS+ quiet NEURO/PSYCH: A & O 3 A/P: Abdominal carcinomatosis -s/p diagnostic lap 07/24/16, path suggestive of GI origin -EGD/colon has been on hold w/ elevated Cr, also recurrent abd distention and abnormal KUB yesterday -- Offered EGD for tomorrow a.m. after discussion w/ Dr. Reza; however, pt requested [facility] transfer. DENISSE HUERTA Jul 30, 2016 11:12
--- NOTE | 2016-07-30 11:47 | PDOC ---
Renal-Progress Notes Subjective Notes Notes NONE History of Present Illness Hx of present illness STABLE Vitals Vitals Vital Signs Date Time Temp Pulse Resp B/P (MAP) Pulse Ox O2 Delivery O2 Flow Rate FiO2 07/30/16 09:49 Room Air 07/30/16 07:00 99.7 80 22 142/69 (93) 96 99.7 Weight Weight [ ] I.O. Intake and Output Intake and Output 07/30/16 07:00 Intake Total 1221 ml Output Total 450 ml Balance 771 ml Intake Oral 170 ml IV Total 1051 ml Output Urine Total 450 ml Labs Labs Laboratory Tests Test 07/30/16 04:20 Sodium Level 135 mmol/L (136-145) Potassium Level 5.2 mmol/L (3.5-5.1) Chloride Level 104 mmol/L (98-107) Carbon Dioxide Level 20 mmol/L (21-32) Anion Gap 11 (6-14) Blood Urea Nitrogen 39 mg/dL (8-26) Creatinine 2.4 mg/dL (0.7-1.3) Estimated GFR (Cockcroft-Gault) 31.5 Glucose Level 100 mg/dL (70-99) Calcium Level 8.0 mg/dL (8.5-10.1) Micro Micro Microbiology 07/23/16 Urine Culture - Final, Complete 07/23/16 Urine Culture Result 1 (TRUMAN) - Final, Complete Review of Systems Constitutional: yes: malaise, weakness, alert, oriented Ears/Nose/Throat: Yes: no symptom reported Pulmonary: Yes no symptom reported Gastrointestional: Yes: abdominal pain Genitourinary: Yes: retention Musculoskeletal: Yes: muscle stiffness Skin: Yes no symptom reported Physical Exam General Appearance: no apparent distress Skin: warm Respiratory: bilateral CTA Abdomen: bowel sounds present, distension Extremities: no edema Neurology: alert, oriented Assessment Assessment IMP ARMANDO BETTER WITH CR DOWN TO 2.4 PROB CKD URINARY RETENTION BPH ABD CARCINOMATOSIS COMPLEX RIGHT RENAL CYST PLAN CONT WITH FLOMAX MAINTAIN ESTEVEZ ONC EVAL AND TX CONT WITH IVF'S LABS IN AM FAMILY WANTING TRANSFER TO [facility] LE[facility] MD Jul 30, 2016 11:47
--- NOTE | 2016-07-30 12:01 | PDOC ---
PROGRESS NOTES Subjective Subjective c/c - f/u of Abdominal carcinomatosis ROS - nausea better Objective Objective Vital Signs Date Time Temp Pulse Resp B/P (MAP) Pulse Ox O2 Delivery O2 Flow Rate FiO2 07/30/16 09:49 Room Air 07/30/16 07:00 99.7 80 22 142/69 (93) 96 99.7 07/28/16 20:00 2.0 Intake and Output 07/30/16 07:00 Intake Total 1221 ml Output Total 450 ml Balance 771 ml Intake Oral 170 ml IV Total 1051 ml Output Urine Total 450 ml Physical Exam Heart: Normal S1, Normal S2 General: Alert, Oriented X3 Lungs: Clear to auscultation Assessment Assessment Problems Medical Problems: (1) Abdominal pain Status: Acute IMPRESSION AND PLAN: 1. Abdominal carcinomatosis. The patient underwent diagnostic laparoscopy on 07/24/[address] Toby Cotter who noted evidence of carcinomatosis of the abdomen and ascites. Omental biopsies were performed and ascitic fluid was sent for cytology. I discussed the operative findings with the patient and family. I also discussed the concern for abdominal carcinomatosis, which is suggestive of stage IV malignancy. They understand and want to proceed with chemotherapy after work up for primary. 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 PATHOLOGY REPORT : Fibroadipose tissue, omental biopsy: - METASTATIC MUCINOUS ADENOCARCINOMA. SEE COMMENT. Some of the pools of mucin contain mucin-producing signet ring cells. The morphologic findings are supportive of the diagnosis of a metastatic mucinous adenocarcinoma. The most likely primary sites would include colon and rectum, and appendix. Appreciate GI follow-up and w/u for primary. He would need upper endoscopy and colonoscopy to evaluate for primary lesion. I d/w pt and family in detail. They want transfer to . I d/w DR Cisse. AFP normal at 3.8 on 07/24/16. CA 19-9 normal at 1 on 07/24/16. CEA elevated 25.9 on 07/24/16 2. Anemia, likely due to malignancy. Iron saturation is low, B12 and folic acid level are normal. 3. Bone lesions noted in the right iliac bone and L4 concerning for osseous metastatic disease. Bone scan on 07/27/16 is negative. 4[address] Staging CT scan of the chest 07/27/16 is neg for mets. Comment Review of Relevant I have reviewed the following items bishnu (where applicable) has been applied. Labs Laboratory Tests Test 07/29/16 07:15 07/30/16 04:20 Sodium Level 135 mmol/L (136-145) 135 mmol/L (136-145) Potassium Level 4.9 mmol/L (3.5-5.1) 5.2 mmol/L (3.5-5.1) Chloride Level 105 mmol/L (98-107) 104 mmol/L (98-107) Carbon Dioxide Level 20 mmol/L (21-32) 20 mmol/L (21-32) Anion Gap 10 (6-14) 11 (6-14) Blood Urea Nitrogen 36 mg/dL (8-26) 39 mg/dL (8-26) Creatinine 2.6 mg/dL (0.7-1.3) 2.4 mg/dL (0.7-1.3) Estimated GFR (Cockcroft-Gault) 28.7 31.5 Glucose Level 112 mg/dL (70-99) 100 mg/dL (70-99) Calcium Level 8.3 mg/dL (8.5-10.1) 8.0 mg/dL (8.5-10.1) Laboratory Tests Test 07/30/16 04:20 Sodium Level 135 mmol/L (136-145) Potassium Level 5.2 mmol/L (3.5-5.1) Chloride Level 104 mmol/L (98-107) Carbon Dioxide Level 20 mmol/L (21-32) Anion Gap 11 (6-14) Blood Urea Nitrogen 39 mg/dL (8-26) Creatinine 2.4 mg/dL (0.7-1.3) Estimated GFR (Cockcroft-Gault) 31.5 Glucose Level 100 mg/dL (70-99) Calcium Level 8.0 mg/dL (8.5-10.1) Microbiology 07/23/16 Urine Culture - Final, Complete 07/23/16 Urine Culture Result 1 (TRUMAN) - Final, Complete Medications Current Medications Fentanyl Citrate (Fentanyl 2ml Vial) 25 mcg PRN Q15MIN PRN IV PAIN GREATER THAN 3/10 Last administered on 07/23/16t 19:35; Start 07/23/16 at 16:45; Stop 07/24 at 16:44; Status DC Ondansetron HCl (Zofran) 4 mg PRN Q8HRS PRN IV NAUSEA/VOMITING; Start 07/23/16 at 18:30; Stop 07/24/16 at 18:29; Status DC Fentanyl Citrate (Fentanyl 2ml Vial) 25 mcg PRN Q2HR PRN IV PAIN; Start at 18:30; Stop 07/23/16 at 19:32; Status DC Sodium Chloride 1,000 ml @ 75 mls/hr [id number] IV Last administered on 02:36; Start 07/23/16 at 19:15; Stop 07/27/16 at 10:10; Status DC Acetaminophen (Tylenol) 325 mg PRN Q6HRS PRN PO MILD PAIN / TEMP; Start at 19:15 Hydralazine HCl (Apresoline) 10 mg PRN Q4HRS PRN IVP ELEVATED BP, SEE COMMENTS Last administered on 07/27/16 17:16; Start 07/23/16 at 19:15 Ondansetron HCl (Zofran) 4 mg PRN Q8HRS PRN IV NAUSEA/VOMITING Last administered on 07/29/16 22:14; Start 07/23/16 at 19:15 Albuterol Sulfate (Ventolin Neb Soln) 2.5 mg PRN Q4HRS PRN NEB SHORTNESS OF BREATH; Start 07/23/16 at 19:15 Morphine Sulfate 2 mg PRN Q2HR PRN IV PAIN Last administered on 07/25/16 01:33 ; Start 07/23/16 at 19:30; Stop 07/25/16 at 16:25; Status DC Iohexol (Omnipaque 240 Mg/ml) 50 ml 1X ONCE PO Last administered on 07/23/16 19:56; Start 07/23/16 at 19:45; Stop 07/23/16 at 19:46; Status DC Info (Do NOT chart on this entry -- for MONITORING) 1 each PRN DAILY PRN MC SEE COMMENTS; Start 07/23/16 at 19:45; Stop 07/25/16 at 19:44; Status DC Cellulose 1 each STK-MED ONCE .ROUTE ; Start 07/24/16 at 08:11; Stop 07/24/16 at 08:12; Status DC Iohexol (Omnipaque 300 Mg/ml) 50 ml STK-MED ONCE .ROUTE ; Start 07/24/16 at 08:11 ; Stop 07/24/16 at 08:12; Status DC Bupivacaine HCl/ Epinephrine Bitart (Sensorcaine-Epi 0.25%-1:910303 Mpf) 30 ml STK-MED ONCE .ROUTE Last administered on 07/24/16 11:10; Start 07/24/16 at 08:11 ; Stop 07/24/16 at 08:12; Status DC Cefazolin Sodium/ Dextrose 50 ml @ As Directed STK-MED ONCE IV ; Start 07/24/16 at 09:31; Stop 07/24/16 at 09:32; Status DC Famotidine (Pepcid) 20 mg STK-MED ONCE .ROUTE ; Start 07/24/16 at 10:35; Stop 07/24/16 at 10:36; Status DC Ondansetron HCl (Zofran) 4 mg STK-MED ONCE .ROUTE ; Start 07/24/16 at 10:35; Stop 07/24/16 at 10:36; Status DC Propofol 20 ml @ As Directed STK-MED ONCE IV ; Start 07/24/16 at 10:35; Stop 07/24 at 10:36; Status DC Lidocaine HCl (Lidocaine Pf 2% Vial) 5 ml STK-MED ONCE .ROUTE ; Start 07/24/16 at 10:35; Stop 07/24/16 at 10:36; Status DC Fentanyl Citrate (Fentanyl 2ml Vial) 100 mcg STK-MED ONCE .ROUTE ; Start at 10:35; Stop 07/24/16 at 10:36; Status DC Rocuronium Gower (Zemuron) 50 mg STK-MED ONCE .ROUTE ; Start 07/24/16 at 10:35 ; Stop 07/24/16 at 10:36; Status DC Pantoprazole Sodium (Protonix) 40 mg DAILYAC PO Last administered on 07/28/16 06:12; Start 07/24/16 at 11:00; Stop 07/30/16 at 07:38; Status DC Glycopyrrolate (Robinul) 1 mg STK-MED ONCE .ROUTE ; Start 07/24/16 at 11:30; Stop 07/24/16 at 11:31; Status DC Neostigmine Methylsulfate 5 mg STK-MED ONCE .ROUTE ; Start 07/24/16 at 11:30; Stop 07/24/16 at 11:31; Status DC Desflurane (Suprane) 30 ml STK-MED ONCE IH ; Start 07/24/16 at 11:32; Stop at 11:33; Status DC Oxycodone/ Acetaminophen (Percocet 5/325) 1 tab PRN Q4HRS PRN PO PAIN Last administered on 07/24/16 21:50; Start 07/24/16 at 11:45; Stop 07/26/16 at 10:07; Status DC Oxycodone/ Acetaminophen (Percocet 5/325) 2 tab PRN Q4HRS PRN PO PAIN Last administered on 07/26/16 05:46; Start 07/24/16 at 11:45; Stop 07/26/16 at 10:07 ; Status DC Ondansetron HCl (Zofran) 4 mg PRN Q6HRS PRN IV NAUSEA/VOMITING; Start 07/24/16 at 12:00; Stop 07/25/16 at 11:59; Status DC Fentanyl Citrate (Fentanyl 2ml Vial) 25 mcg PRN Q5MIN PRN IV MILD PAIN; Start 07/24/16 at 12:00; Stop 07/25/16 at 11:59; Status DC Fentanyl Citrate (Fentanyl 2ml Vial) 50 mcg PRN Q5MIN PRN IV MODERATE PAIN Last administered on 07/24/16 12:26; Start 07/24/16 at 12:00; Stop 07/25/16 at 11 :59; Status DC Morphine Sulfate 1 mg PRN Q10MIN PRN IV SEVERE PAIN Last administered on 12:32; Start 07/24/16 at 12:00; Stop 07/25/16 at 11:59; Status DC Ringer's Solution 1,000 ml @ 0 mls/hr Q0M IV ; Start 07/24/16 at 11:56; Stop 07/24/16 at 23:55; Status DC Lidocaine HCl 2 ml PRN 1X PRN ID PRIOR TO IV START; Start 07/24/16 at 12:00; Stop 07/25/16 at 11:59; Status DC Hydromorphone HCl (Dilaudid) 0.5 mg PRN Q10MIN PRN IV SEV PAIN, Second choice; Start 07/24/16 at 12:00; Stop 07/25/16 at 11:59; Status DC Prochlorperazine Edisylate (Compazine) 5 mg PACU PRN PRN IV NAUSEA, MRX1; Start 07/24/16 at 12:00; Stop 07/25/16 at 11:59; Status DC Amlodipine Besylate (Norvasc) 5 mg DAILY PO Last administered on 07/28/16 08: 51; Start 07/24/16 at 14:00 Famotidine (Pepcid) 20 mg QHS PO Last administered on 07/28/16 21:36; Start at 21:00 Metoprolol Succinate (Toprol Xl) 100 mg BID PO Last administered on 07/28/16 21:37; Start 07/24/16 at 15:00 Dutasteride (Avodart) 0.5 mg DAILY PO ; Start 07/25/16 at 09:00; Stop 07/25/16 at 09:00; Status DC Tamsulosin HCl (Flomax) 0.4 mg DAILY PO ; Start 07/25/16 at 09:00; Stop at 09:00; Status DC Dicyclomine HCl (Bentyl) 20 mg QID PO Last administered on 07/28/16 21:36; Start 07/24/16 at 23:15 Losartan Potassium (Cozaar) 100 mg DAILY PO Last administered on 07/28/16 08: 51; Start 07/25/16 at 09:00; Stop 07/28/16 at 10:48; Status DC Dutasteride (Avodart) 0.5 mg DAILY PO Last administered on 07/28/16 08:51; Start 07/24/16 at 23:15 Tamsulosin HCl (Flomax) 0.4 mg DAILY PO Last administered on 07/28/16 10:12; Start 07/24/16 at 23:15 Senna/Docusate Sodium (Senna Plus) 2 tab PRN BID PRN PO CONSTIPATION Last administered on 07/28/16 21:36; Start 07/26/16 at 08:45 Bisacodyl (Dulcolax Supp) 10 mg PRN DAILY PRN PA CONSTIPATION Last administered on 07/28/16 18:03; Start 07/26/16 at 10:15 Potassium Chloride 30 meq/ Sodium Chloride 1,015 ml @ 75 mls/hr [id number] IV Last administered on 07/27/16 05:45; Start 07/26/16 at 10:30; Stop 07/27/16 at 10:10; Status DC Bisacodyl (Dulcolax Supp) 10 mg PRN DAILY PRN PA CONSTIPATION; Start 07/26/16 at 10:15; Status Cancel Morphine Sulfate 1 mg PRN Q2HR PRN IV PAIN; Start 07/26/16 at 14:45; Stop 07/28 at 15:48; Status DC Bisacodyl (Dulcolax Supp) 10 mg PRN DAILY PRN PA CONSTIPATION; Start 07/26/16 at 14:45; Status Cancel Morphine Sulfate 2 mg PRN Q2HR PRN IV PAIN Last administered on 07/30/16 08:03 ; Start 07/26/16 at 15:00 Throat Lozenges (Chloraseptic) 1 spray PRN Q2HR PRN PO SORE THROAT; Start 07/26 at 19:45; Status UNV Throat Lozenges (Chloraseptic) 1 spray PRN Q2HR PRN PO SORE THROAT Last administered on 07/26/16 21:04; Start 07/26/16 at 20:00 Sodium Chloride 1,000 ml @ 100 mls/hr Q10H IV ; Start 07/27/16 at 10:30; Stop 07/27/16 at 12:32; Status DC Sodium Chloride 1,000 ml @ 100 mls/hr Q10H IV Last administered on 07/29/16 09:42; Start 07/27/16 at 14:00; Stop 07/29/16 at 14:13; Status DC Heparin Sodium (Porcine) (Heparin Sq) 5,000 unit Q8HRS SQ Last administered on 07/30/16 06:30; Start 07/27/16 at 14:00 Sodium Polystyrene Sulfonate (Kayexalate) 15 gm 1X ONCE PO Last administered on 07/28/16 11:37; Start 07/28/16 at 09:45; Stop 07/28/16 at 09:46; Status DC Amino Acids/ Glycerin/ Electrolytes 1,000 ml @ 80 mls/hr [id number] IV Last administered on 07/30/16 02:04; Start 07/29/16 at 14:15; Stop 07/30/16 at 09:41 ; Status DC Pantoprazole Sodium (Protonix Vial) 40 mg DAILYAC IVP Last administered on 07/30 08:03; Start 07/30/16 at 08:00 Sodium Chloride 1,000 ml @ 100 mls/hr Q10H IV Last administered on 07/30/16 09:49; Start 07/30/16 at 09:45 Active Scripts Active Famotidine 20 Mg Tablet 20 Mg PO BID Reported Dicyclomine Hcl 20 Mg Tablet 1 Tab PO QID Avodart (Dutasteride) 0.5 Mg Capsule 1 Cap PO DAILY Diovan (Valsartan) 160 Mg Tablet 160 Mg PO DAILY Tamsulosin Hcl 0.4 Mg Cap.er.24h 1 Cap PO DAILY Amlodipine Besylate 5 Mg Tablet 5 Mg PO DAILY Multiple Vitamin (Multivitamin With Minerals) 1 Each Tablet 1 Each PO DAILY [Vitamin B 12] DAILY Flaxseed (Flaxseed Oil) 1,000 Mg Capsule 1,000 Mg PO DAILY Toprol Xl (Metoprolol Succinate) 100 Mg Tab.er.24h 100 Mg PO BID Vitals/I & O Vital Sign - Last 24 Hours 07/29/16 07/29/16 07/29/16 07/29/16 14:57 15:00 19:00 20:15 Temp 97.3 97.7 97.3 97.7 Pulse 90 84 Resp 18 18 B/P (MAP) 140/82 (101) 140/75 (96) Pulse Ox 96 95 O2 Delivery Room Air Room Air Room Air Room Air 07/29/16 07/29/16 07/29/16 07/29/16 20:51 22:15 22:45 23:36 Temp 97.7 97.7 Pulse 84 82 Resp 18 18 18 B/P (MAP) 140/75 137/76 (96) Pulse Ox 95 94 94 O2 Delivery Room Air Room Air 07/30/16 07/30/16 07/30/16 07/30/16 03:00 07:00 08:03 09:49 Temp 98.8 99.7 98.8 99.7 Pulse 89 80 Resp 18 22 B/P (MAP) 134/79 (97) 142/69 (93) Pulse Ox 93 96 O2 Delivery Room Air Room Air Room Air Room Air Intake and Output 07/29/16 07/29/16 07/30/16 15:00 23:00 07:00 Intake Total 1051 ml 170 ml Output Total 450 ml Balance 1051 ml -450 ml 170 ml Nutrition Consultation Dietary Evaluation: Recommendations by RD: PPN/TPN Expected Outcomes/Goals: to meet > 50% est nutr needs Malnutrition Findings: Food and Nutrition Intake (Sev: <50% est energy req 5days Weight Status: Appropriate Fluid Accumulation (Non-Severe: Mild depletion YU JIMENEZ MD Jul 30, 2016 12:01
--- NOTE | 2016-07-30 12:12 | PDOC ---
SURGICAL PROGRESS NOTE Subjective some flatus still bloated Vital Signs Vital Signs Date Time Temp Pulse Resp B/P (MAP) Pulse Ox O2 Delivery O2 Flow Rate FiO2 07/30/16 11:00 98.5 84 22 141/72 (95) 96 Room Air 98.5 I&O Intake and Output 07/30/16 07:00 Intake Total 1221 ml Output Total 450 ml Balance 771 ml Intake Oral 170 ml IV Total 1051 ml Output Urine Total 450 ml General: Alert, Oriented X3, Cooperative, No acute distress Abdomen: Soft, Other (distended ) Labs Laboratory Tests Test 07/29/16 07:15 07/30/16 04:20 Sodium Level 135 mmol/L (136-145) 135 mmol/L (136-145) Potassium Level 4.9 mmol/L (3.5-5.1) 5.2 mmol/L (3.5-5.1) Chloride Level 105 mmol/L (98-107) 104 mmol/L (98-107) Carbon Dioxide Level 20 mmol/L (21-32) 20 mmol/L (21-32) Anion Gap 10 (6-14) 11 (6-14) Blood Urea Nitrogen 36 mg/dL (8-26) 39 mg/dL (8-26) Creatinine 2.6 mg/dL (0.7-1.3) 2.4 mg/dL (0.7-1.3) Estimated GFR (Cockcroft-Gault) 28.7 31.5 Glucose Level 112 mg/dL (70-99) 100 mg/dL (70-99) Calcium Level 8.3 mg/dL (8.5-10.1) 8.0 mg/dL (8.5-10.1) Laboratory Tests Test 07/30/16 04:20 Sodium Level 135 mmol/L (136-145) Potassium Level 5.2 mmol/L (3.5-5.1) Chloride Level 104 mmol/L (98-107) Carbon Dioxide Level 20 mmol/L (21-32) Anion Gap 11 (6-14) Blood Urea Nitrogen 39 mg/dL (8-26) Creatinine 2.4 mg/dL (0.7-1.3) Estimated GFR (Cockcroft-Gault) 31.5 Glucose Level 100 mg/dL (70-99) Calcium Level 8.0 mg/dL (8.5-10.1) Problem List Problems Medical Problems: (1) Abdominal pain Status: Acute Assessment/Plan Carcinomatosis of the abdomen. s/p Diagnostic laparoscopy with omental biopsies. plans for tx to for ongoing care per family request no further surgical needs at this time Problems: JOSE [employer] Jul 30, 2016 12:12
--- NOTE | 2016-07-30 13:15 | PDOC3 ---
Discharge Summary [facility] Date of Admission: Jul 24, 2016 Discharge Date: Jul 30, 2016 Admitting Diagnosis 1. abd pain with2 s/p surgery with findings of carcinomatosis, 2. Metast CA, path METASTATIC MUCINOUS ADENOCARCINOMA 3. HTN 4. ARMANDO, obstructive nephropathy likely 5. Constipation (vs ileus) 6. Ascites: 2/2 malignancy 7. BPH Problems: Final Diagnosis CONSULTS gi sx onco renal Brief Hospital Course Mr. Del Cid is a 80 old M,comes for abd pain, CT showed ascites, pt underwent ex lap and found wildely spreaded carcinomatosis, path is metastatic mucinous adenocarcinoma. Pt cont having abd pain , distended abd, vomited sometime. then ARMANDO with likely obstructive nephropathy with bph and possible left ureter obstruction, Cr better with Enamorado. family wants aggressive treatment, EGD/COLONOSCOPY pending given ARMANDO. Family required transfer to , and we dont have urologist here. accepted him. dc time 35min. General: Alert, Oriented X3 Heart: Normal S1, Normal S2 Lungs: Clear Abdomen: Soft, Other (incisional TTP. moderate distended abd, with moderate tenderness) Extremities: No cyanosis, Other (mild clubbing) Skin: No rashes, No significant lesion Patient History: Problems: Disposition KU CONDITION AT DISCHARGE: Stable Diet npo Scheduled Amlodipine Besylate (Amlodipine Besylate), 5 MG PO DAILY, (Reported) Dicyclomine Hcl (Dicyclomine Hcl), 1 TAB PO QID, (Reported) Dutasteride (Avodart), 1 CAP PO DAILY, (Reported) Famotidine (Famotidine), 20 MG PO BID Flaxseed Oil (Flaxseed), 1,000 MG PO DAILY, (Reported) Metoprolol Succinate (Toprol Xl), 100 MG PO BID, (Reported) Multivitamin With Minerals (Multiple Vitamin), 1 EACH PO DAILY, (Reported) Tamsulosin Hcl (Tamsulosin Hcl), 1 CAP PO DAILY, (Reported) [Vitamin B 12], DAILY, (Reported) Discontinued Medications Valsartan (Diovan), 160 MG PO DAILY, (Reported) SINGH THURSTON MD Jul 30, 2016 13:15
[2016-07-30] MEDS: ONDANSETRON PF 4 MG/2 ML VIAL. IV PRN (13:52)
[2016-07-30 15:00] VITALS: BP 127/67
[2016-07-30 19:00] VITALS: BP 155/84
[2016-07-30] MEDS: BISACODYL 10 MG SUPP.RECT. PR PRN (19:22)
[2016-07-30] MEDS: FAMOTIDINE 20 MG TABLET. PO SCH (19:29)
[2016-07-30 23:00] VITALS: BP 154/75
[2016-07-31] MEDS: IV NORMAL SALINE 1000ML BAG 1,000 ML IV SCH (02:39)
[2016-07-31 03:00] VITALS: BP 150/79
[2016-07-31] MEDS: HEPARIN PF for SUB-Q USE 5,000 UNIT/0.5 ML VIAL. SQ SCH (06:00)
[2016-07-31 07:00] VITALS: BP 147/72
[2016-07-31] MEDS: PANTOPRAZOLE IV PUSH 40 MG VIAL. IVP SCH (07:30)
[2016-07-31] MEDS: MORPHINE SULFATE 2 MG/ML DISP.SYRIN. IV PRN ×2 (07:38→09:55)
[2016-07-31] MEDS: ONDANSETRON PF 4 MG/2 ML VIAL. IV PRN (07:38)
[2016-07-31] MEDS: TAMSULOSIN 0.4 MG CAP.ER.24H. PO SCH (09:00)
[2016-07-31] MEDS: DUTASTERIDE 0.5 MG CAPSULE PO SCH (09:00)
[2016-07-31] MEDS: DICYCLOMINE HCL 10 MG CAPSULE PO SCH ×2 (09:00→13:00)
[2016-07-31] MEDS: METOPROLOL SUCC 24HR ER 100 MG TAB.ER.24H. PO SCH (09:00)
[2016-07-31] MEDS: amLODIPine BESYLATE 5 MG TABLET PO SCH (09:00)
[2016-07-31 10:05] LABS: CALCIUM 8.2 mg/dL (8.5-10.1); CREATININE 2.2 mg/dL (0.7-1.3); GFR 34.8; POTASSIUM 4.7 mmol/L (3.5-5.1)
[2016-07-31 11:00] VITALS: BP 117/67
--- NOTE | 2016-07-31 12:02 | PDOC ---
Renal-Progress Notes Subjective Notes Notes NONE History of Present Illness Hx of present illness NO CHANGE Vitals Vitals Vital Signs Date Time Temp Pulse Resp B/P (MAP) Pulse Ox O2 Delivery O2 Flow Rate FiO2 07/31/16 10:25 16 Room Air 07/31/16 09:00 82 133/71 07/31/16 07:38 98 07/31/16 07:00 98.8 98.8 Weight Weight [ ] I.O. Intake and Output Intake and Output 07/31/16 07:00 Intake Total 3281 ml Output Total 2850 ml Balance 431 ml Intake Oral 0 ml IV Total 3281 ml Output Urine Total 2850 ml # Bowel Movements 1 Labs Labs Laboratory Tests Test 07/31/16 09:15 Sodium Level 137 mmol/L (136-145) Potassium Level 4.7 mmol/L (3.5-5.1) Chloride Level 106 mmol/L (98-107) Carbon Dioxide Level 23 mmol/L (21-32) Anion Gap 8 (6-14) Blood Urea Nitrogen 38 mg/dL (8-26) Creatinine 2.2 mg/dL (0.7-1.3) Estimated GFR (Cockcroft-Gault) 34.8 Glucose Level 87 mg/dL (70-99) Calcium Level 8.2 mg/dL (8.5-10.1) Micro Micro Microbiology 07/23/16 Urine Culture - Final, Complete 07/23/16 Urine Culture Result 1 (TRUMAN) - Final, Complete Review of Systems Constitutional: yes: malaise, weakness, alert, oriented Ears/Nose/Throat: Yes: no symptom reported Pulmonary: Yes no symptom reported Gastrointestional: Yes: abdominal pain Genitourinary: Yes: retention Musculoskeletal: Yes: muscle stiffness Skin: Yes no symptom reported Physical Exam General Appearance: no apparent distress Skin: warm Respiratory: bilateral CTA Abdomen: bowel sounds present, distension Extremities: no edema Neurology: alert, oriented Assessment Assessment IMP ARMANDO BETTER WITH CR DOWN TO 2.2 PROB CKD URINARY RETENTION BPH ABD CARCINOMATOSIS COMPLEX RIGHT RENAL CYST PLAN CONT WITH FLOMAX MAINTAIN ESTEVEZ ONC EVAL AND TX CONT WITH IVF'S FAMILY WANTING TRANSFER TO [facility] LE[facility] MD Jul 31, 2016 12:02
--- NOTE | 2016-07-31 12:14 | PDOC3 ---
Discharge Summary [facility] Date of Admission: Jul 24, 2016 Discharge Date: Jul 31, 2016 Admitting Diagnosis 1. abd pain with2 s/p surgery with findings of carcinomatosis, 2. Metast CA, path METASTATIC MUCINOUS ADENOCARCINOMA 3. HTN 4. ARMANDO, obstructive nephropathy likely 5. Constipation (vs ileus) 6. Ascites: 2/2 malignancy 7. BPH Problems: Final Diagnosis CONSULTS Problems: Final Diagnosis CONSULTS gi sx onco renal Brief Hospital Course Brief Hospital Course Mr. Del Cid is a 80 old M,comes for abd pain, CT showed ascites, pt underwent ex lap and found wildely spreaded carcinomatosis, path is metastatic mucinous adenocarcinoma. Pt cont having abd pain , distended abd, vomited sometime. then ARMANDO with likely obstructive nephropathy with bph and possible left ureter obstruction, Cr better with Enamorado. family wants aggressive treatment, EGD/COLONOSCOPY pending given ARMANDO. Family required transfer to , and we dont have urologist here. [facility] accepted him. waiting for bed. dc time 35min. General: Alert, Oriented X3 Heart: Normal S1, Normal S2 Lungs: Clear Abdomen: Soft, Other (incisional TTP. moderate distended abd, with moderate tenderness) Extremities: No cyanosis, Other (mild clubbing). left arm swelling, bl leg 2+ edema Skin: No rashes, No significant lesion Patient History: Problems: Disposition KU CONDITION AT DISCHARGE: Stable Scheduled Amlodipine Besylate (Amlodipine Besylate), 5 MG PO DAILY, (Reported) Dicyclomine Hcl (Dicyclomine Hcl), 1 TAB PO QID, (Reported) Dutasteride (Avodart), 1 CAP PO DAILY, (Reported) Famotidine (Famotidine), 20 MG PO BID Flaxseed Oil (Flaxseed), 1,000 MG PO DAILY, (Reported) Metoprolol Succinate (Toprol Xl), 100 MG PO BID, (Reported) Multivitamin With Minerals (Multiple Vitamin), 1 EACH PO DAILY, (Reported) Tamsulosin Hcl (Tamsulosin Hcl), 1 CAP PO DAILY, (Reported) [Vitamin B 12], DAILY, (Reported) Discontinued Medications Valsartan (Diovan), 160 MG PO DAILY, (Reported) SINGH THURSTON MD Jul 31, 2016 12:14
[2016-07-31 15:00] VITALS: BP 159/78
--- NOTE | 2016-07-31 16:24 | RAD ---
Bilateral lower extremity venous duplex study 07/31/2016 Clinical history: Bilateral leg swelling. Technique: Using a combination of real time ultrasound imaging and color-flow and pulse Doppler imaging techniques along with graded compression and augmentation, duplex evaluation of the deep venous system of the both lower extremities was performed. Multiple images were obtained. Findings: There is no sonographic evidence of deep venous thrombosis involving the visualized deep venous structures of either lower extremity. Impression: Negative study.
--- NOTE | 2016-07-31 16:38 | RAD ---
Left upper extremity venous ultrasound, 07/31/2016: History: Edema Duplex evaluation of the major veins in the left upper extremity was performed including grayscale, color-flow and spectral Doppler analysis. The left internal jugular, subclavian, axillary and brachial veins are patent. The cephalic vein is patent. The basilic vein was not identified. There is mild streaky subcutaneous edema in the medial aspect of the upper arm. Patent radial and ulnar veins are present in the forearm. IMPRESSION: No sonographic evidence of deep vein thrombosis in the left upper extremity.
== END 2016-07-31 17:35 | disposition short-term general hospital (02) | DRG 356 ==
LOC: ER 16:40 → 4 NORTH 18:30 → OBSVTOIN 07-24 08:45
PROVIDERS: ADMIT Internal Medicine; ATTEND Internal Medicine
PROC: 0DBS4ZX (ICD-10-PCS; 2016-07-24)
PROC: 0W9G4ZX Drainage of Peritoneal Cavity, Percutaneous Endoscopic Approach, Diagnostic (ICD-10-PCS; principal; 2016-07-24 10:30)
DX: C78.6 Secondary malignant neoplasm of retroperitoneum and peritoneum (principal); N17.0 Acute kidney failure with tubular necrosis; R18.8 Other ascites; N13.8 Other obstructive and reflux uropathy; K56.7 Ileus, unspecified; C80.1 Malignant (primary) neoplasm, unspecified; K64.8 Other hemorrhoids; K81.9 Cholecystitis, unspecified; K21.9 Gastro-esophageal reflux disease without esophagitis; N28.1 Cyst of kidney, acquired; N18.9 Chronic kidney disease, unspecified; D64.9 Anemia, unspecified; K82.8 Other specified diseases of gallbladder; R97.0 Elevated carcinoembryonic antigen [CEA]; I12.9 Hypertensive chronic kidney disease with stage 1 through stage 4 chronic kidney disease, or unspecified chronic kidney disease; K57.30 Diverticulosis of large intestine without perforation or abscess without bleeding; N40.1 Benign prostatic hyperplasia with lower urinary tract symptoms; R33.8 Other retention of urine; Z82.49 Family history of ischemic heart disease and other diseases of the circulatory system; Z79.899 Other long term (current) drug therapy; Z79.1 Long term (current) use of non-steroidal anti-inflammatories (NSAID); Z79.2 Long term (current) use of antibiotics; Z88.8 Allergy status to other drugs, medicaments and biological substances; Z91.018 Allergy to other foods
CPT/HCPCS: 36415; 71250; 74000; 74176; 76705; 78306; 80048; 80053; 80074; 80076; 81001; 82105; 82378; 82553; 82607; 82728; 82746; 83540; 83550; 83690; 85007; 85027; 85610; 85730; 86301; 87086; 88112; 88305; 93970; 93971; 94250; 94760; 96374; 96376; A9503; C1782; C9113; G0378; G0379; J0360; J0690; J2270; J2405; J2704; J2710; J3010; J3490; J7030; Q9966; Q9967; S0028; 97116; 97530; 99285-25